=== PATIENT | female | born 1935 | race Caucasian/White ===

== ENCOUNTER 2020-06-19 12:35 | Inpatient (IN) | payer MEDICARE, BC, MEDICAID, SELFPAY ==
[2020-06-19] VITALS (25 sets, daily range): BP systolic 62–153; BP diastolic 34–80; PULSE 80–105; RESP 12–26; TEMP 36.6–37.6; O2SAT 88–100; BMI 26.6; BMI 19.1
--- NOTE | 2020-06-19 12:37 | HMH.EDGENADL ---
ED Disposition Clinical Impression: Altered mental status Qualifiers: Altered mental status type: disorientation Qualified Code(s): R41.0 - Disorientation, unspecified Urinary tract infection Qualifiers: Urinary tract infection type: acute cystitis Hematuria presence: without hematuria Qualified Code(s): N30.00 - Acute cystitis without hematuria Disposition: Admitted As Inpatient Condition on Discharge: Fair Time of Disposition: 16:22 - Critical Care Critical Care Time: No Attestation: On , the high probability of a clinically significant, sudden or life threatening deterioration of the following system(s) required my full and direct attention, intervention and personal management. The time I documented below is in addition to time spent performing reported procedures but includes the following listed in this critical care notation. Medical Decision Making - Medical Records Medical records reviewed: Yes: I reviewed the patient's medical records. MR Comment: 85-year-old female here with complaint that she was unresponsive; she has been brought here by EMS from an assisted living facility who themselves had gotten her only a few days ago and hence do not know many details about her; Apparently she had a good breakfast today but after the breakfast she became unresponsive but arousable on stimuli; facility sent her over for evaluation. Work-up shows normal white blood cell count of 7.9 electrolytes are also essentially normal she does however have a urinary tract infection UA shows 3+ leukocyte esterase 1+ bacteria and 20-30 WBCs call with test is negative CT head shows no acute changes vital signs are stable patient has been started on IV Levaquin she is also getting IV fluids spoke to Dr. Glasgow who is on-call for Dr. Trevino plan is to admit her to the hospital speak to [facility] and they tell me that that she has already been accepted by [facility] Inquiry Pt receiving controlled substance: No Vital Signs: 06/19/20 12:35 06/19/20 13:00 06/19/20 14:00 Temperature 97.9 F Temperature Source Oral Pulse Rate [Left Radial] 82 91 H 95 H Respiratory Rate 12 Blood Pressure [Right Arm] 116/56 L 125/65 85/60 L Blood Pressure Mean [Right Arm] 76 85 68 Blood Pressure Source [Right Arm] Automatic Cuff Automatic Cuff Automatic Cuff Blood Pressure Position [Right Arm] Sitting Sitting Sitting 02 Sat by Pulse Oximetry 100 90 L 100 Oxygen Delivery Method Nasal Cannula Nasal Cannula Nasal Cannula Oxygen Flow Rate (LPM) 2 2 06/19/20 14:08 06/19/20 14:30 06/19/20 15:00 Temperature Temperature Source Pulse Rate [Left Radial] 93 H 90 91 H Respiratory Rate 16 Blood Pressure [Right Arm] 85/60 L 88/45 L 95/59 L Blood Pressure Mean [Right Arm] 68 59 71 Blood Pressure Source [Right Arm] Automatic Cuff Automatic Cuff Automatic Cuff Blood Pressure Position [Right Arm] Sitting Sitting Sitting 02 Sat by Pulse Oximetry 98 88 L 90 L Oxygen Delivery Method Nasal Cannula Nasal Cannula Oxygen Flow Rate (LPM) 2 2 06/19/20 15:30 06/19/20 15:32 06/19/20 15:33 Temperature Temperature Source Pulse Rate [Left Radial] 99 H 99 H 96 H Respiratory Rate Blood Pressure [Right Arm] 71/45 L 62/41 L 80/50 L Blood Pressure Mean [Right Arm] 53 48 60 Blood Pressure Source [Right Arm] Automatic Cuff Automatic Cuff Manual Cuff/ Auscultation Blood Pressure Position [Right Arm] Sitting Sitting Sitting 02 Sat by Pulse Oximetry 92 L 88 L 90 L Oxygen Delivery Method Nasal Cannula Nasal Cannula Nasal Cannula Oxygen Flow Rate (LPM) 2 2 2 06/19/20 15:37 06/19/20 15:39 06/19/20 15:46 Temperature Temperature Source Pulse Rate [Left Radial] 89 90 87 Respiratory Rate Blood Pressure [Right Arm] 64/39 L 85/39 L 80/43 L Blood Pressure Mean [Right Arm] 47 54 55 Blood Pressure Source [Right Arm] Automatic Cuff Automatic Cuff Automatic Cuff Blood Pressure Position [Right Arm] Sitting Sitting Sitti
--- NOTE | 2020-06-19 12:44 | CT_ITS ---
PROCEDURE: CT HEAD/BRAIN WO CON Referring Doctor: Marek Mata Patient Age:85Y CLINICAL INDICATION: mental status changes poor historian. Patient not alert COMPARISON: No exams were available for comparison TECHNIQUE: No IV contrast. Standard axial images were obtained. All CT scans at the facility use one or more dose reduction, viz: automated exposure control, ma/kV adjustment per patient size (including targeted exams where dose is matched to indication, i.e. head), or iterative reconstruction technique. FINDINGS: No hemorrhage. No territorial infarct. There are low-density changes in the deep white matter reflecting chronic small vessel deep white-matter ischemic changes. Some of these are quite focal. However I believe these all do reflect small microangiopathic deep white matter ischemic gliotic changes. And by far most likely chronic, longstanding. No previous studies to confirm stability thus difficult to totally exclude recent deep white matter event but again favor chronic/longstanding features here Some of the more focal mature appearing low-density areas is seen at the centrum semiovale white matter tracks just superior to the right basal ganglia on axial image 27, (5 x 7 mm low-density areas seen here anteriorly) and another more posteriorly on axial image 28 of similar size At the left cerebral hemisphere there is a more diffuse subtle patchy appearance low-density pattern throughout the deep white matter, reflecting the chronic small vessel ischemic changes. Most notable lower density area for example just superior to the atrium of left lateral ventricle. (Axial image 27). Also very subtle low density at the inferior left basal ganglia likely reflects small vessel changes. No intracranial hemorrhage. There is mild diffuse cerebral atrophy with a matching mild prominence of lateral ventricles no otherwise the ventricles and basal cisterns appear clear and unremarkable.. No mass or midline shift nor mass effect. No subdural or extra-axial fluid collection is evident. Posterior fossa unremarkable. Skull intact-no skull lesions are findings of scalp appears normal with no evidence of trauma.. Nomastoid effusions. Mastoid air cells are well developed and clear. Middle ear clear. IAC's symmetric. Nosinus air-fluid level. Visualized portions of the paranasal sinuses and orbits unremarkable. IMPRESSION: 1..Patchy low-density deep white matter along with few focal areas of low-density in the deep white matter-. 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 (Although with this appearance difficult to totally exclude a recent small deep white matter event strongly favor these are by far most likely chronic old deep white matter changes.) However patient may benefit from a follow-up MRI the brain to better exclude the new event, particularly if persistent or new or progressive symptoms. 2..No discrete acute intracranial findings: No hemorrhage. No territorial infarct. No subdural or extra-axial collection Dictated by: Pawan Zamora MD 06/19/2020 13:54 Pawan Zamora MD in [place] 06/19/2020 13:54
--- NOTE | 2020-06-19 12:47 | XR_ITS ---
PROCEDURE: XR CHEST PORTABLE Referring Doctor: Adolfo Marek Patient Age:85Y CLINICAL HISTORY: shortness of breath Found unresponsive COMPARISON: No exams were available for comparison FINDINGS: AP portable semi-erect CXR but Right lung clear with mild chronic changes left chest . There are 2 portable chest studies suggest today per on the 1st I initially question additional density at left base retrocardiac region but this does not persist on the 2nd image..-It appears that unusually broad flaring of the left 4th anterior rib which and density project overlying the heart accounting for the appearance here.. And questionable density at the medial left base on 2nd chest film was not seen on the 1st but Thus after reviewing all images I see no definitive consolidation nor infiltrate at left nor right chest. . Left upper lung field clear. Annette and mediastinal structures otherwise unremarkable. . No pleural effusion but no pneumothorax. Chest wall and ribs unremarkable on this limited portable exam. Advanced arthritic changes right shoulder Mild cardiomegaly but normal pulmonary vascularity. Scattered calcified granulomas are at the lung andrews bilaterally. Prior kyphoplasty lower thoracic vertebra IMPRESSION: Nothing definitely acute. Note slightly unusual very broad flaring of the left 4th rib end, which I believe accounts for slight areas of variable density at projected over the over the heart and left lung base. No definitive pulmonary abnormalities here.. Dictated by: aPwan Zamora MD 06/19/2020 15:56 Pawan Zamora MD in [place] 06/19/2020 15:56
[2020-06-19 13:04] LABS: Microscopic, Urine URINE MICROSCOPIC (MICROSCOPIC)
[2020-06-19 13:07] LABS: Basophils # 0.1 K/mm3 (0-0.2); Basophils % 1.1 % (0.1-2.0); Eosinophils # 0.2 K/mm3 (0.0-0.4); Eosinophils % 3.1 % (0.1-12.0); Hematocrit 47.6 % (37.0-47.0); Hemoglobin 15.4 g/dL (12.2-16.2); Lymphocytes # 2.4 K/mm3 (0.7-4.5); Lymphocytes % 29.9 % (10-50); Mean Corpuscular HGB Conc 32.5 g/dL (31.8-35.4); Mean Corpuscular Hemoglobin 30.3 pg (27.0-31.2); Mean Corpuscular Volume 93.4 fl (81-99); Mean Platelet Volume 8.5 fl (7.4-10.4); Monocytes # 0.5 K/mm3 (0.1-1.0); Monocytes % 6.8 % (1.7-9.3); Neutrophils # 4.6 K/mm3 (1.8-7.8); Neutrophils % 59.1 % (37.0-80.0); Platelet Count 181 K/mm3 (142-424); Red Blood Count 5.09 M/mm3 (4.20-5.40); Red Cell Distribution Width 14.4 % (11.5-17.5); White Blood Count 7.9 K/mm3 (4.8-10.8)
[2020-06-19 13:08] LABS: Appearance,Urine CLEAR (Clear); Bilirubin,Urine Negative (Negative); Blood, Urine Negative (Negative); Color,Urine YELLOW (Yellow); Glucose,Urine (UA) Negative (Negative); Ketones,Urine Negative (Negative); Leukocyte Esterase,Urine 3+ (Negative); Nitrate,Urine Negative (Negative); PH,Urine 5.5 (5.0-8.5); Protein,Urine Negative (Negative); Specific Gravity, Urine 1.025 (1.005-1.030); Urobilinogen,Urine 0.2 EU/dl (0.2)
[2020-06-19 13:17] LABS: Chloride 103 mmol/L (98-107); Sodium 143 mmol/L (136-145)
[2020-06-19 13:18] LABS: Potassium 3.6 mmoL/L (3.5-5.1); WBC,Urine 20-50 #/hpf (0-3)
[2020-06-19 13:19] LABS: Bacteria,Urine 1+ /lpf
[2020-06-19 13:20] LABS: Alanine Aminotransferase 22 U/L (12-78); Albumin Level 4.6 g/dl (3.5-5.0); Albumin/Globulin Ratio 1.4 (1.1-1.8); Alkaline Phosphatase 83 U/L (38-126); Anion Gap 11.6 mEq/L (5-15); Aspartate Amino Transferase 28 U/L (14-36); Bilirubin,Total 0.5 mg/dl (0.2-1.3); Blood Urea Nitrogen 22 mg/dl (7-17); Calcium 10.4 mg/dl (8.4-10.2); Carbon Dioxide 32 mmol/L (22.0-30.0); Creatinine Clearance Estimated 48 mL/min (50-200); Estimated Glomerular Filt Rate 80 ml/min (>60); GFR (African American) 96 ML/MIN (>60); Globulin 3.4 g/dL (1.3-3.2); Glucose 136 mg/dl (74-100); Lactic Acid 1.4 mmol/L (0.7-2.1)
[2020-06-19 13:38] LABS: Troponin I < 0.01 ng/ml (0.00-0.034)
[2020-06-19 13:52] LABS: Thyroid Stimulating Hormone 3.69 uIU/mL (0.465-4.68)
[2020-06-19 14:39] LABS: ABG Base Excess -1.5 mmol/L (-2.4-2.3); ABG HCO3 24.1 mmhg (22.0-26.0); ABG Oxygen Saturation 97 % (90-100); ABG PCO2 44.6 mmhg (35.0-45.0); ABG PH 7.35 mmol/L (7.35-7.45); ABG PO2 93.8 mmhg (80-100); ABG TCO2 25.5 mmhg (23-27)
[2020-06-19 14:44] LABS: Coronavirus 19 IgG Antibody Negative (Negative); Coronavirus 19 IgM Antibody Negative (Negative)
[2020-06-19 14:49] LABS: Oxygen 3LPM %; Source L BRACHIAL
--- NOTE | 2020-06-19 15:00 | PC.NURSE ---
Pt given 1 L of NS bolus per MD Mata. Unable to document on MAR at this time.
--- NOTE | 2020-06-19 15:25 | PC.NURSE ---
House notified of admission
--- NOTE | 2020-06-19 15:33 | PC.NURSE ---
PT b/p decreased, Notified MD pt with guaureliano resp. MD at bedside. Attempting 2nd IV. Called [facility] for code status and they advised she was a full code. Resp notified to come to bedside and notified pharmacy need for levophed drip
--- NOTE | 2020-06-19 15:52 | PC.NURSE ---
Vitals showed that pt was decreasing with a reading of 70/40. MD, EMT and myself at bedside. REsiratory called for suctioning due to pt having excess secretions. Md ordered for pt to be started on levophed drip at this time due to the completion of pt bolus with no bp improvement.
--- NOTE | 2020-06-19 16:30 | PC.NURSE ---
Waiting on MD to finish orders and then pt will be taken to floor
--- NOTE | 2020-06-19 17:27 | PC.NURSE ---
pt arrived to the floor @ 1700. Levophed gtt decreased to 4mcg/min from 8mcg/min. SBP 153.
--- NOTE | 2020-06-19 17:52 | HMH.HP ---
*Admission Date: 06/19/20 *Chief complaint: sepsis *History of present illness: 85-year-old female here with complaint that she was unresponsive; she has been brought here by EMS from an assisted living facility who themselves had gotten her only a few days ago and hence do not know many details about her; Apparently she had a good breakfast today but after the breakfast she became unresponsive but arousable on stimuli; facility sent her over for evaluation. Work-up shows normal white blood cell count of 7.9 electrolytes are also essentially normal she does however have a urinary tract infection UA shows 3+ leukocyte esterase 1+ bacteria and 20-30 WBCs call with test is negative CT head shows no acute changes vital signs are stable patient has been started on IV Levaquin she is also getting IV fluids spoke to Dr. Glasgow who is on-call for Dr. Trevino plan is to admit her to the hospital speak to [facility] [place] and they tell me that that she has already been accepted by [facility]. The patient got fluid bolused in the emergency room. She is seen on the floor, is currently on a Levophed drip which is being down titrated. Remains unresponsive. Initial ABG looked okay. We are unable to get good pulse oximetry from any extremity. Currently on O2 at 50%. We will get an ABG and modify accordingly. Patient is a full code. She is unable to speak or answer questions. Review of her preadmission medications suggest some dementia with behavioral issues. [facility] History *Have you ever received a pneumonia vaccine?: No *Have you received a flu vaccine this season?: No - *Social History *Occupational Status:: previously employed *Travel in the last 8 weeks: None Family Hx:: Unable to obtain Review of Systems - Review of Systems Review of systems:: unable to obtain Meds Home Medications Medication Instructions Recorded Confirmed Type Aspirin 81 mg PO DAILY 06/19/20 06/19/20 History Atorvastatin Calcium [Lipitor 10mg 10 mg PO HS 06/19/20 06/19/20 History Tab] Buspirone HCl [Buspar 10mg 10 mg PO BID 06/19/20 06/19/20 History tablet] Cyproheptadine HCl 4 mg PO TID 06/19/20 06/19/20 History Donepezil HCl [Aricept 10mg 10 mg PO HS 06/19/20 06/19/20 History tablet] Duloxetine HCl 30 mg PO DAILY 06/19/20 06/19/20 History Fluticasone Propionate [Flonase 2 spr NS DAILY 06/19/20 06/19/20 History 50mcg nasal spray 16gm] Megestrol Acetate [Megace Es] 400 mg PO BID 06/19/20 06/19/20 History Meloxicam 7.5 mg PO DAILY 06/19/20 06/19/20 History Memantine HCl [Memantine 10mg 10 mg PO BID 06/19/20 06/19/20 History Tablet] Mirtazapine 7.5 mg PO HS 06/19/20 06/19/20 History Multivitamin [Multivitamins] 1 each PO DAILY 06/19/20 06/19/20 History Quetiapine Fumarate 50 mg PO AC 06/19/20 06/19/20 History Quetiapine Fumarate 50 mg PO DAILY 06/19/20 06/19/20 History Quetiapine Fumarate 125 mg PO HS 06/19/20 06/19/20 History lisinopriL [Lisinopril 2.5mg Tab] 2.5 mg PO DAILY 06/19/20 06/19/20 History Allergies Allergy/AdvReac Type Severity Reaction Status Date / Time codeine Allergy Verified 06/19/20 16:05 oxycodone Allergy Verified 06/19/20 16:05 Exam Vital signs and Labs for Last 24 Hours: Temp Pulse Resp BP Pulse Ox 98.3 F 94 H 26 H 153/80 H 93 L 06/19/20 17:29 06/19/20 17:29 06/19/20 17:29 06/19/20 17:29 06/19/20 17:29 Laboratory Results - last 24 hr 06/19/20 12:44: Specimen Source L brachial, O2 % 3lpm, ABG pH 7.35, ABG pCO2 44.6, ABG pO2 93.8, ABG HCO3 24.1, ABG Total CO2 25.5, ABG O2 Saturation 97, ABG Base Excess -1.5 06/19/20 12:51: Urine Color Yellow, Urine Appearance Clear, Urine pH 5.5, Ur Specific [place] 1.025, Urine Protein Negative, Urine Glucose (UA) Negative, Urine Ketones Negative, Urine Blood Negative, Urine Nitrate Negative, Urine Bilirubin Negative, Urine Urobilinogen 0.2, Ur Leukocyte Esterase 3+ A, Urine RBC 3-5, Urine WBC 20-50, Ur Squamous Epith Cells 3-
--- NOTE | 2020-06-19 17:54 | PC.NURSE ---
RT. NT suctioned Pt. in ER and sent SPT to lab at 1700
--- NOTE | 2020-06-19 18:04 | PC.NURSE ---
Levophed increased to 8mcg/min secondary to BP 76/48.
[2020-06-20] VITALS (19 sets, daily range): BP systolic 84–135; BP diastolic 42–70; PULSE 70–100; RESP 16–24; TEMP 36.9–37.3; O2SAT 90–100; BMI 20.5
--- NOTE | 2020-06-20 01:10 | PC.NURSE ---
O2 weaned to 30 venti. Continues to sat 100%. She is unable to take any PO meds. She does not follow commands. Provided oral care and turned and repositioned q 2 hours. She withdraws to pain. She occasionally clears her throat. Her mouth is dry and she is mouth breathing. No speech but occasional moans. Safety set on bed. Levophed titrated to maintain SBP >90.
[2020-06-20 06:00] LABS: Basophils # 0.1 K/mm3 (0-0.2); Basophils % 0.3 % (0.1-2.0); Eosinophils # 0.1 K/mm3 (0.0-0.4); Hematocrit 43.9 % (37.0-47.0); Hemoglobin 14.4 g/dL (12.2-16.2); Lymphocytes # 1.3 K/mm3 (0.7-4.5); Lymphocytes % 9.8 % (10-50); Mean Corpuscular HGB Conc 32.8 g/dL (31.8-35.4); Mean Corpuscular Volume 91.6 fl (81-99); Mean Platelet Volume 8.3 fl (7.4-10.4); Monocytes # 0.7 K/mm3 (0.1-1.0); Monocytes % 4.9 % (1.7-9.3); Neutrophils # 11.1 K/mm3 (1.8-7.8); Platelet Count 165 K/mm3 (142-424); Red Blood Count 4.79 M/mm3 (4.20-5.40); Red Cell Distribution Width 14.5 % (11.5-17.5); White Blood Count 13.2 K/mm3 (4.8-10.8)
--- NOTE | 2020-06-20 06:00 | XR_ITS ---
PROCEDURE: XR CHEST PORTABLE CLINICAL HISTORY: hypoxia COMPARISON: CR XR CHEST PORTABLE from 06/19/2020 FINDINGS: This is a somewhat poor inspiration. If there are few calcified granulomata in the right lung but I see no definite infiltrate. Cardiac size is borderline, there is questionable increased density through the left heart border and a minimal left basilar infiltrate cannot be entirely excluded. A probably be helpful to obtain a PA and lateral chest if the patient is able to assume the position. The vertebroplasties again seen involving T8. Marked degenerate change of the right shoulder is noted with of markedly high-riding humeral head and subacromial stenosis. IMPRESSION: No definite pneumonic infiltrate identified though as mentioned there is a increased density seen through the left heart border which could be due to atelectasis or possibly an early pneumonic infiltrate. Dictated by: Dr. Jg Danielle MD 06/20/2020 08:35 Dr. Jg Danielle MD in [place] 06/20/2020 08:35
[2020-06-20 06:05] LABS: Chloride 107 mmol/L (98-107); Potassium 4.5 mmoL/L (3.5-5.1); Sodium 137 mmol/L (136-145)
[2020-06-20 06:07] LABS: Lactic Acid 1.9 mmol/L (0.7-2.1)
[2020-06-20 06:08] LABS: Alanine Aminotransferase 19 U/L (12-78); Albumin Level 3.7 g/dl (3.5-5.0); Albumin/Globulin Ratio 1.3 (1.1-1.8); Alkaline Phosphatase 66 U/L (38-126); Anion Gap 10.5 mEq/L (5-15); Aspartate Amino Transferase 22 U/L (14-36); Bilirubin,Total 0.8 mg/dl (0.2-1.3); Blood Urea Nitrogen 19 mg/dl (7-17); Calcium 9.4 mg/dl (8.4-10.2); Carbon Dioxide 24 mmol/L (22.0-30.0); Creatinine Clearance Estimated 35 mL/min (50-200); Estimated Glomerular Filt Rate 80 ml/min (>60); GFR (African American) 96 ML/MIN (>60); Globulin 2.8 g/dL (1.3-3.2); Glucose 141 mg/dl (74-100); Total Protein,Serum 6.5 g/dl (6.3-8.2)
[2020-06-20 07:25] LABS: ABG HCO3 19.1 mmhg (22.0-26.0); ABG PCO2 35.4 mmhg (35.0-45.0); ABG PH 7.35 mmol/L (7.35-7.45); ABG PO2 74.8 mmhg (80-100); ABG TCO2 20.2 mmhg (23-27)
[2020-06-20 07:26] LABS: ABG Base Excess -6.5 mmol/L (-2.4-2.3); ABG Oxygen Saturation 95 % (90-100)
--- NOTE | 2020-06-20 11:21 | P.CONPHA_ITS ---
[facility] Pharmacy VTE Monitoring - Patient Demographics Admission date: 06/20/20 Report Date: 06/20/20 Time: 11:22 Allergies/Adverse Reactions: Patient Allergies codeine Allergy (Verified 06/19/20 16:05) oxycodone Allergy (Verified 06/19/20 16:05) Height: 1.65 m Weight: 55.747 kg Patient Problems: Current Active Problems Altered mental status (Acute) Urinary tract infection (Acute) Sepsis associated hypotension (Acute) Dementia (Chronic) - VTE Risk Labs: VTE Related Lab Results Hgb 14.4 g/dL (12.2-16.2) 06/20/20 05:48 Hct 43.9 % (37.0-47.0) 06/20/20 05:48 Plt Count 165 K/mm3 (142-424) 06/20/20 05:48 BUN 19 mg/dl (7-17) H 06/20/20 05:48 Creatinine 0.70 mg/dl (0.52-1.04) 06/20/20 05:48 Estimated Creat Clear 35 mL/min (50-200) 06/20/20 05:48 Was VTE Risk Assessment Performed: Yes VTE Score: 2 VTE Risk Level: Very Low Risk - Prophylaxis Types of VTE Prophylaxis: Pharmacological Location of Applied Device: Bilateral Lower Extremeties Pharmacologic Type: Enoxaparin (LOVENOX ORDERED)
--- NOTE | 2020-06-20 11:22 | HMH.PHAINT ---
MED REC-CALLED AND HAD MED LIST FAXED FROM [facility]. COMPARED LIST IN SYSTEM WITH PATIENT MAR.
--- NOTE | 2020-06-20 15:40 | DIET.NUTRFU ---
Confirmed with Gallo that pt is on regular diet with regular consistency at [facility]. Pt at risk malnutrition rt dementia, BMI on low range of healthy weight. Pt NPO rt mentation, will provide supplementation as indicated upon diet advancement.
--- NOTE | 2020-06-20 16:35 | HMH.ACPN2 ---
Internal Medicine - PN: Subj *Date: 06/20/20 *Time: 16:37 Interval history: No problems overnight. She actually looks quite good this morning, she is alert and conversant. Suspect she has some underlying dementia. She has no complaints of abdominal pain, chest pain or dyspnea. Urine culture preliminary is growing out gram-negative rods. Exam Vital signs and Labs for Last 24 Hours: Temp Pulse Resp BP Pulse Ox 98.4 F 71 18 120/60 99 06/20/20 08:00 06/20/20 14:00 06/20/20 14:00 06/20/20 14:00 06/20/20 14:00 Laboratory Results - last 24 hr 06/19/20 12:51: Urine Color Yellow, Urine Appearance Clear, Urine pH 5.5, Ur Specific [place] 1.025, Urine Protein Negative, Urine Glucose (UA) Negative, Urine Ketones Negative, Urine Blood Negative, Urine Nitrate Negative, Urine Bilirubin Negative, Urine Urobilinogen 0.2, Ur Leukocyte Esterase 3+ A, Urine RBC 3-5, Urine WBC 20-50, Ur Squamous Epith Cells 3-5, Urine Bacteria 1+ 06/19/20 17:49: O2 % venti mask, ABG pH 7.35, ABG pCO2 35.4, ABG pO2 74.8 L, ABG HCO3 19.1 L, ABG Total CO2 20.2 L, ABG O2 Saturation 95, ABG Base Excess -6.5 L 06/20/20 05:48: WBC 13.2 H D, RBC 4.79, Hgb 14.4, Hct 43.9, MCV 91.6, MCH 30.0, MCHC 32.8, RDW 14.5, Plt Count 165, MPV 8.3, Neut % (Auto) 84.0 H, Lymph % (Auto) 9.8 L, Mcnairy % (Auto) 4.9, Eos % (Auto) 1.0, Baso % (Auto) 0.3, Neut # (Auto) 11.1 H, Lymph # (Auto) 1.3, Mcn[place] # (Auto) 0.7, Eos # (Auto) 0.1, Baso # (Auto) 0.1 06/20/20 05:48: Sodium 137, Potassium 4.5 D, Chloride 107, Carbon Dioxide 24 D, Anion Gap 10.5, BUN 19 H, Creatinine 0.70, Estimated Creat Clear 35, Estimated GFR 80, Est GFR ( Amer) 96, Glucose 141 H, Calcium 9.4, Total Bilirubin 0.8, AST 22, ALT 19, Alkaline Phosphatase 66, Total Protein 6.5, Albumin 3.7 D, Globulin 2.8, Albumin/Globulin Ratio 1.3 06/20/20 05:48: Lactate 1.9 I & O for Last 24 hours: Intake & Output 06/17/20 06/18/20 06/19/20 06/20/20 23:59 23:59 23:59 23:59 Intake Total 1224 / 1224 1629.64 / 1629.64 Output Total 200 / 200 Balance 1224 / 1024 1429.64 / 1429.64 Weight 115 lb 3 oz 123 lb 7.342 oz Microbiology Reports for the Last 24 Hours: Microbiology 06/19/20 17:45 Sputum - Expectorated Sputum Gram Stain - Final 06/19/20 17:45 Sputum - Expectorated Sputum Sputum Culture - Preliminary 06/19/20 12:51 Urine,Catheterized Urine Culture - Preliminary Gram Negative Rods - Constitutional no acute distress, chronically ill appearing - *Routine HEENT Exam Head: Present: normocephalic Eye: Present: EOMI, PERRL ENT: Present: mucous membranes moist - *Routine Neck Exam Present: supple. Absent: lymphadenopathy - *Routine Respiratory Exam Present: CTA bilaterally - *Routine Cardiovascular Exam Present: RRR - *Routine Abdominal Exam Present: soft, normoactive bowel sounds. Absent: tenderness - *Routine Extremities Exam Absent: cyanosis, clubbing, edema - *Routine Skin Exam Present: warm. Absent: rash - *Routine Neurological Exam Present: alert, moving all extremities, vision grossly intact, hearing grossly intact. Absent: oriented X3, altered mental status, facial asymmetry Assessment and Plan (1) Sepsis associated hypotension Status: Acute Category: Medical Code(s): A41.9 - Sepsis, unspecified organism; I95.9 - Hypotension, unspecified (2) Dementia Status: Chronic Category: Medical Code(s): F03.90 - Unspecified dementia without behavioral disturbance (3) Altered mental status Status: Acute Qualifiers: Altered mental status type: disorientation Qualified Code(s): R41.0 - Disorientation, unspecified Category: Medical Code(s): R41.82 - Altered mental status, unspecified (4) Urinary tract infection Status: Acute Qualifiers: Urinary tract infection type: acute cystitis Hematuria presence: without hematuria Qualified Code(s): N30.00 - Acute cystitis without hematuria Category: Medical
--- NOTE | 2020-06-20 18:37 | PC.NURSE ---
On morning assessment pt was not responding to commands but would withdraw from pain. Morning meds were held due to this. By afternoon the was alert to self and able to follow commands. Speech is unclear and rambling. Morning meds were given at that time under the direction of Jimmie Velasquez from pharmacy. She swallowed pills whole and a few at at time. Levophed was weaned to 3mcg/min. I attempted to turn it off but systolic fell below 90 and map was less than 65 so levophed was resumed. O2 was weaned to RA this AM. Pt tolerated well with O2 sats maintaining > 95%. Carmona is to bedside draining clear yellow urine. She has had approx 1200 mls out this shift. No other concerns at this time. Will continue to monitor.
--- NOTE | 2020-06-20 19:47 | PC.NURSE ---
She is alert to person. Some of her speech is clear but she rambles. She stated her name is Trini and when her accent was noted she stated she was from [place] and that she had moved to the [facility] from [place] with her and 2 daughters. Lung sounds CTA. F/c is patent with yellow, clear urine. She continues on levophed gtt. SCDS removed at this time and will be replaced after bath.
[2020-06-21] VITALS (10 sets, daily range): BP systolic 90–152; BP diastolic 54–90; PULSE 64–100; RESP 18–20; TEMP 36.4–37.3; O2SAT 95–99; BMI 19.5
[2020-06-21 06:19] LABS: Basophils % 0.3 % (0.1-2.0); Eosinophils # 0.4 K/mm3 (0.0-0.4); Eosinophils % 4.2 % (0.1-12.0); Hematocrit 38.7 % (37.0-47.0); Hemoglobin 12.7 g/dL (12.2-16.2); Lymphocytes # 1.4 K/mm3 (0.7-4.5); Lymphocytes % 14.3 % (10-50); Mean Corpuscular HGB Conc 32.7 g/dL (31.8-35.4); Mean Corpuscular Hemoglobin 30.4 pg (27.0-31.2); Mean Platelet Volume 8.3 fl (7.4-10.4); Monocytes # 0.5 K/mm3 (0.1-1.0); Neutrophils # 7.1 K/mm3 (1.8-7.8); Neutrophils % 76.1 % (37.0-80.0); Platelet Count 130 K/mm3 (142-424); Red Blood Count 4.17 M/mm3 (4.20-5.40); Red Cell Distribution Width 14.6 % (11.5-17.5); White Blood Count 9.4 K/mm3 (4.8-10.8)
[2020-06-21 06:54] LABS: Alanine Aminotransferase 13 U/L (12-78); Albumin Level 3.1 g/dl (3.5-5.0); Albumin/Globulin Ratio 1.2 (1.1-1.8); Alkaline Phosphatase 65 U/L (38-126); Anion Gap 11.6 mEq/L (5-15); Aspartate Amino Transferase 24 U/L (14-36); Bilirubin,Total 0.5 mg/dl (0.2-1.3); Blood Urea Nitrogen 11 mg/dl (7-17); Carbon Dioxide 24 mmol/L (22.0-30.0); Chloride 109 mmol/L (98-107); Creatinine Clearance Estimated 35 mL/min (50-200); Estimated Glomerular Filt Rate 118 ml/min (>60); GFR (African American) 142 ML/MIN (>60); Globulin 2.5 g/dL (1.3-3.2); Glucose 93 mg/dl (74-100); Potassium 3.6 mmoL/L (3.5-5.1); Sodium 141 mmol/L (136-145); Total Protein,Serum 5.6 g/dl (6.3-8.2)
--- NOTE | 2020-06-21 13:25 | HMH.DCSUM ---
General - General Admission date:: 06/19/20 HPI HPI: 85-year-old female here with complaint that she was unresponsive; she has been brought here by EMS from an assisted living facility who themselves had gotten her only a few days ago and hence do not know many details about her; Apparently she had a good breakfast today but after the breakfast she became unresponsive but arousable on stimuli; facility sent her over for evaluation. Work-up shows normal white blood cell count of 7.9 electrolytes are also essentially normal she does however have a urinary tract infection UA shows 3+ leukocyte esterase 1+ bacteria and 20-30 WBCs call with test is negative CT head shows no acute changes vital signs are stable patient has been started on IV Levaquin she is also getting IV fluids spoke to Dr. Glasgow who is on-call for Dr. Trevino plan is to admit her to the hospital speak to [facility] and they tell me that that she has already been accepted by [facility]. The patient got fluid bolused in the emergency room. She is seen on the floor, is currently on a Levophed drip which is being down titrated. Remains unresponsive. Initial ABG looked okay. We are unable to get good pulse oximetry from any extremity. Currently on O2 at 50%. We will get an ABG and modify accordingly. Patient is a full code. She is unable to speak or answer questions. Review of her preadmission medications suggest some dementia with behavioral issues. Hospital Course Hospital Course: Patient was admitted with a UTI, urosepsis, mental status changes. She was started on IV antibiotics and clinically made a dramatic improvement. Mentation returned to a baseline dementia status. This morning she is awake and alert, is eating, feeding herself and looks very bright. The underlying dementia still manifest though. The E. coli growing from the bloodstream is pansensitive. Chest imaging does not reveal an acute pneumonia. She is a resident at [facility], given her excellent clinical response we will discharge her today. Objective Vital signs: Temp Pulse Resp BP Pulse Ox 97.6 F 88 20 129/90 97 06/21/20 08:00 06/21/20 10:00 06/21/20 10:00 06/21/20 10:00 06/21/20 10:00 no acute distress, thin, chronically ill appearing - *Routine HEENT Exam Head: Present: normocephalic Eye: Present: EOMI, PERRL ENT: Present: mucous membranes moist - *Routine Neck Exam Present: supple - *Routine Respiratory Exam Present: CTA bilaterally - *Routine Cardiovascular Exam Present: RRR - *Routine Abdominal Exam Present: soft, normoactive bowel sounds. Absent: tenderness - *Routine Extremities Exam Present: pulses intact. Absent: cyanosis, clubbing, edema, tenderness, joint swelling - *Routine Skin Exam Present: warm. Absent: rash Results Labs on day of discharge: Labs from last 24 hours 06/21/20 06/21/20 06:10 06:10 WBC 9.4 D RBC 4.17 L Hgb 12.7 Hct 38.7 MCV 93.0 MCH 30.4 MCHC 32.7 RDW 14.6 Plt Count 130 L MPV 8.3 Neut % (Auto) 76.1 Lymph % (Auto) 14.3 [place] % (Auto) 5.0 Eos % (Auto) 4.2 Baso % (Auto) 0.3 Neut # (Auto) 7.1 Lymph # (Auto) 1.4 [place] # (Auto) 0.5 Eos # (Auto) 0.4 Baso # (Auto) 0.0 Sodium 141 Potassium 3.6 Chloride 109 H Carbon Dioxide 24 Anion Gap 11.6 BUN 11 D Creatinine 0.50 L D Estimated Creat Clear 35 Estimated GFR 118 Est GFR ( Amer) 142 D Glucose 93 Calcium 9.0 Total Bilirubin 0.5 AST 24 ALT 13 D Alkaline Phosphatase 65 Total Protein 5.6 L Albumin 3.1 L D Globulin 2.5 Albumin/Globulin Ratio 1.2 Preliminary micro results at discharge 06/19/20 12:51 Blood Culture - Preliminary Blood NO GROWTH AFTER 48 HOURS 06/19/20 17:45 Sputum Culture - Preliminary Sputum - Expectorated Sputum DS: Diagnosis - Discharge Diagnosis (1) Sepsis associated hypot
--- NOTE | 2020-06-21 13:39 | PC.NURSE ---
santillan discontinued and purwick placed.
--- NOTE | 2020-06-21 14:09 | PC.NURSE ---
spoke with md about patient discharge, along with case management. patient will need pt before discharge, and according to [facility] patient was going to [facility] on tuesday, so they would not approve her to come back to them,
--- NOTE | 2020-06-21 16:26 | PC.NURSE ---
did alert md that since being asleep patient has been running trigeminy on the monitor/frequent pvcs.
--- NOTE | 2020-06-21 17:12 | PC.NURSE ---
patient has done well this shift. alert to name only. md is aware patient cannot discharge today, but left discharge order in. will need to follow up with case management on discharge planning. she is finally resting. has been confused, and talking to self most of shift. fed self and tolerated it well. mostly normal sinus on monitor. brief period of multiple pvcs that md is aware of. sats have been stable on room air. bp has been within normal limits. no complaints.
[2020-06-22] VITALS: BP 145/76; PULSE 80; RESP 18; TEMP 36.6; O2SAT 95
[2020-06-22 04:00] VITALS: BP 159/87; PULSE 70; PULSE 74; RESP 18; TEMP 36.3; O2SAT 95
[2020-06-22 04:38] VITALS: BMI 19.8
--- NOTE | 2020-06-22 05:12 | PC.NURSE ---
No acute changes. Pt is alert to self. has rested well this shift. Has remained on RA. VS have remained stable. Medications administered per aug. Pt has been incontinent of urine this shift. Purwick is in place. No concerns noted at this time. Will continue to monitor.
[2020-06-22 08:00] VITALS: BP 142/70; PULSE 61; RESP 19; TEMP 37.1; O2SAT 95
[2020-06-22 10:42] LABS: Basophils % 0.4 % (0.1-2.0); Eosinophils # 0.2 K/mm3 (0.0-0.4); Eosinophils % 2.9 % (0.1-12.0); Hematocrit 38.1 % (37.0-47.0); Hemoglobin 12.7 g/dL (12.2-16.2); Lymphocytes # 1.5 K/mm3 (0.7-4.5); Lymphocytes % 18.8 % (10-50); Mean Corpuscular HGB Conc 33.4 g/dL (31.8-35.4); Mean Corpuscular Hemoglobin 30.5 pg (27.0-31.2); Mean Corpuscular Volume 91.3 fl (81-99); Mean Platelet Volume 8.5 fl (7.4-10.4); Monocytes # 0.4 K/mm3 (0.1-1.0); Monocytes % 5.1 % (1.7-9.3); Neutrophils # 5.8 K/mm3 (1.8-7.8); Neutrophils % 72.7 % (37.0-80.0); Platelet Count 145 K/mm3 (142-424); Red Blood Count 4.18 M/mm3 (4.20-5.40); Red Cell Distribution Width 14.6 % (11.5-17.5)
[2020-06-22 11:37] VITALS: BP 112/52; PULSE 65; RESP 18; TEMP 36.8; O2SAT 95
--- NOTE | 2020-06-22 11:53 | PC.NURSE ---
per dr vegas it was okay to dc director personal.
--- NOTE | 2020-06-22 14:25 | XR_ITS ---
PROCEDURE: XR CHEST PORTABLE CLINICAL HISTORY: rhonchi left COMPARISON: CR XR CHEST PORTABLE from 06/19/2020 CR XR CHEST PORTABLE from 06/20/2020 FINDINGS: The cardiomediastinal silhouette and pulmonary vascularity are within normal limits. Increased density in left mid mid and lower lung zone with silhouetting out of the hemidiaphragm consistent with pneumonia and/or atelectatic change. There is evidence of old granulomatous disease. Prior kyphoplasty of T8. IMPRESSION: Left lower lobe pneumonia Dictated by: Gustavo Matthews MD 06/23/2020 05:15 Gustavo Matthews MD in [facility] 06/23/2020 05:15
--- NOTE | 2020-06-22 14:25 | HMH.ACPN2 ---
Internal Medicine - PN: Subj *Date: 06/22/20 *Time: 14:29 Interval history: no interval problems noted placement plans will be finalized tomorrow off pressors baseline dementia Exam Vital signs and Labs for Last 24 Hours: Temp Pulse Resp BP Pulse Ox 98.3 F 65 18 112/52 L 95 06/22/20 11:37 06/22/20 11:37 06/22/20 11:37 06/22/20 11:37 06/22/20 11:37 Laboratory Results - last 24 hr 06/22/20 10:30: WBC 8.0, RBC 4.18 L, Hgb 12.7, Hct 38.1, MCV 91.3, MCH 30.5, MCHC 33.4, RDW 14.6, Plt Count 145, MPV 8.5, Neut % (Auto) 72.7, Lymph % (Auto) 18.8, [place] % (Auto) 5.1, Eos % (Auto) 2.9, Baso % (Auto) 0.4, Neut # (Auto) 5.8, Lymph # (Auto) 1.5, [place] # (Auto) 0.4, Eos # (Auto) 0.2, Baso # (Auto) 0.0 I & O for Last 24 hours: Intake & Output 06/19/20 06/20/20 06/21/20 06/22/20 23:59 23:59 23:59 23:59 Intake Total 1224 / 1224 2961.64 / 2961.64 2150 / 2150 600 / 600 Output Total 1900 / 1900 1750 / 1850 100 / 100 Balance 1224 / 1024 1061.64 / 1061.64 400 / 300 500 / 500 Weight 115 lb 3 oz 123 lb 7.342 oz 117 lb 1 oz 119 lb 1 oz Microbiology Reports for the Last 24 Hours: Microbiology 06/19/20 17:45 Sputum - Expectorated Sputum Gram Stain - Final 06/19/20 17:45 Sputum - Expectorated Sputum Sputum Culture - Preliminary 06/19/20 15:14 Blood Blood Culture - Preliminary NO GROWTH AFTER 48 HOURS 06/19/20 12:51 Blood Blood Culture - Preliminary NO GROWTH AFTER 48 HOURS - Constitutional no acute distress, chronically ill appearing - *Routine HEENT Exam Head: Present: normocephalic Eye: Present: EOMI, PERRL ENT: Present: mucous membranes moist - *Routine Neck Exam Present: supple. Absent: lymphadenopathy - *Routine Respiratory Exam Present: rhonchi. Absent: accessory muscle use, wheezes, crackles, diminished air movement - *Routine Cardiovascular Exam Present: RRR - *Routine Abdominal Exam Present: soft, normoactive bowel sounds. Absent: tenderness - *Routine Extremities Exam Present: MIMA stockings. Absent: cyanosis, clubbing, edema - *Routine Skin Exam Present: warm. Absent: rash - *Routine Neurological Exam Present: alert, altered mental status, vision grossly intact, hearing grossly intact. Absent: oriented X3, facial asymmetry Assessment and Plan (1) Sepsis associated hypotension Status: Acute Category: Medical Code(s): A41.9 - Sepsis, unspecified organism; I95.9 - Hypotension, unspecified (2) Dementia Status: Chronic Category: Medical Code(s): F03.90 - Unspecified dementia without behavioral disturbance (3) Altered mental status Status: Acute Qualifiers: Altered mental status type: disorientation Qualified Code(s): R41.0 - Disorientation, unspecified Category: Medical Code(s): R41.82 - Altered mental status, unspecified (4) Urinary tract infection Status: Acute Qualifiers: Urinary tract infection type: acute cystitis Hematuria presence: without hematuria Qualified Code(s): N30.00 - Acute cystitis without hematuria Category: Medical Code(s): N39.0 - Urinary tract infection, site not specified (5) E-coli UTI Status: Acute Category: Medical Code(s): N39.0 - Urinary tract infection, site not specified; B96.20 - Unspecified Escherichia coli [E. coli] as the cause of diseases classified elsewhere - Assessment and plan all Dx Assessment and Plan for all problems:: BC- Sputum- UC=pansensitive ecoli on levaquin will transition to po upon d/c definitive placement tomorrow
[2020-06-22 15:12] VITALS: BP 115/70; PULSE 82; RESP 18; TEMP 36.5; O2SAT 95
--- NOTE | 2020-06-22 18:17 | PC.NURSE ---
Routine assessment completed. Pt. oriented to self only. Lungs CTA in Bilateral upper lobes, Diminished in the lowers. Heart at RR. BS present x4 quad. No edema noted. IV remains intact. Pt. has attempted to get out of bed once since 3pm. Pt. denies needs, will continue to monitor.
[2020-06-22 20:00] VITALS: BP 109/56; PULSE 79; RESP 18; TEMP 36.8; O2SAT 91
[2020-06-23] VITALS (7 sets, daily range): BP systolic 123–168; BP diastolic 60–82; PULSE 65–101; RESP 16–20; TEMP 36.4–37.1; O2SAT 94–100; BMI 20.7
--- NOTE | 2020-06-23 04:18 | PC.NURSE ---
PT HAS RESTED WELL THIS SHIFT, VITAL SIGNS STABLE. PT ORIENTED TO SELF ONLY. PT HAS NOT ATTEMPTED TO CLIMB OUT OF BED, PLEASANT AND COOPERATIVE WITH CARE. LUNGS DIMINISHED, SCATTERED RHONCHI. IV PATENT. NO NEEDS VOICED. FREQUENT CHECKS PER STAFF. WILL CONTINUE TO MONITOR
--- NOTE | 2020-06-23 07:24 | PC.NURSE ---
report given to may casas rn
--- NOTE | 2020-06-23 10:36 | HMH.ACPN2 ---
Internal Medicine - PN: Subj *Date: 06/23/20 *Time: 08:00 Interval history: pt will dc to [facility] today for ltc placement Exam Vital signs and Labs for Last 24 Hours: Temp Pulse Resp BP Pulse Ox 97.6 F 67 16 168/82 H 96 06/23/20 07:26 06/23/20 07:26 06/23/20 07:26 06/23/20 07:26 06/23/20 07:26 Laboratory Results - last 24 hr 06/22/20 10:30: WBC 8.0, RBC 4.18 L, Hgb 12.7, Hct 38.1, MCV 91.3, MCH 30.5, MCHC 33.4, RDW 14.6, Plt Count 145, MPV 8.5, Neut % (Auto) 72.7, Lymph % (Auto) 18.8, [place] % (Auto) 5.1, Eos % (Auto) 2.9, Baso % (Auto) 0.4, Neut # (Auto) 5.8, Lymph # (Auto) 1.5, [place] # (Auto) 0.4, Eos # (Auto) 0.2, Baso # (Auto) 0.0 I & O for Last 24 hours: Intake & Output 06/20/20 06/21/20 06/22/20 06/23/20 11:59 11:59 11:59 11:59 Intake Total 3900.64 / 3900.64 1341 / 1341 1334 / 1334 720 / 720 Output Total 1400 / 1400 1800 / 1800 550 / 550 350 / 350 Balance 2500.64 / 2500.64 -459 / -459 784 / 784 370 / 370 Weight 122 lb 14.4 oz 117 lb 1 oz 119 lb 1 oz 124 lb 7 oz Microbiology Reports for the Last 24 Hours: Microbiology 06/19/20 17:45 Sputum - Expectorated Sputum Gram Stain - Final 06/19/20 17:45 Sputum - Expectorated Sputum Sputum Culture - Final Normal Respiratory Adrienne - Constitutional no acute distress, thin - *Routine HEENT Exam Head: Present: normocephalic Eye: Present: PERRL ENT: Present: mucous membranes moist - *Routine Neck Exam Present: supple. Absent: lymphadenopathy - *Routine Respiratory Exam Present: CTA bilaterally - *Routine Cardiovascular Exam Present: RRR - *Routine Abdominal Exam Present: soft, normoactive bowel sounds. Absent: tenderness - *Routine Extremities Exam Absent: cyanosis, clubbing, edema - *Routine Skin Exam Present: warm. Absent: rash - *Routine Neurological Exam Present: alert - Routine Psychiatric Exam Present: normal affect Assessment and Plan (1) Sepsis associated hypotension Status: Acute Category: Medical Code(s): A41.9 - Sepsis, unspecified organism; I95.9 - Hypotension, unspecified (2) Dementia Status: Chronic Category: Medical Code(s): F03.90 - Unspecified dementia without behavioral disturbance (3) Altered mental status Status: Acute Qualifiers: Altered mental status type: disorientation Qualified Code(s): R41.0 - Disorientation, unspecified Category: Medical Code(s): R41.82 - Altered mental status, unspecified (4) Urinary tract infection Status: Acute Qualifiers: Urinary tract infection type: acute cystitis Hematuria presence: without hematuria Qualified Code(s): N30.00 - Acute cystitis without hematuria Category: Medical Code(s): N39.0 - Urinary tract infection, site not specified (5) E-coli UTI Status: Acute Category: Medical Code(s): N39.0 - Urinary tract infection, site not specified; B96.20 - Unspecified Escherichia coli [E. coli] as the cause of diseases classified elsewhere - Assessment and plan all Dx Assessment and Plan for all problems:: rounded with dr tompkins all orders per dr leda diaz to zofia on levaquin already sent to pharm
--- NOTE | 2020-06-23 11:15 | SW/DCPLANNER ---
Addendum entered by Rocio Lebron 06/23/20 15:18: Patient is negative and will discharge to [facility] today. Original Note: This patient was admitted from [facility] but will need a higher level of care at time of discharge. Prior to admission [facility] staff was working with [facility] for admission to their facility. I have spoke with Marcia from [facility] today and she has stated that she has spoke with [facility] and they can admit this patient today. Marcia has also completed PASSR paperwork. COVID swab has been ordered for this patient and patient will discharge later today is negative. I have informed Dr Trevino/Leigh.
--- NOTE | 2020-06-23 14:50 | PC.NURSE ---
Sleeping soundly. Awaken to take medication with applesauce. Then back to sleep.
--- NOTE | 2020-06-23 18:19 | PC.NURSE ---
REPORT CALLED TO [facility] (LEV LOGAN RN)
--- NOTE | 2020-06-23 18:20 | PC.NURSE ---
BOTH IV'S TAKEN OUT (RT/AC AND LT EJ) CATHETERS INTACT, 2X2 GAUZE AND COBAN / TAPE APPLIED TO SITES. TOLERATED WELL.
--- NOTE | 2020-06-23 18:45 | PC.NURSE ---
[facility] CALLED AND NOTIFIED OF NEED FOR TRANSFER. VERBALIZES UNDERSTANDING.
--- NOTE | 2020-06-23 19:09 | PC.NURSE ---
EMS HERE TO HOUSE REPAIRER PT FOR TRNASPORT...
== END 2020-06-23 19:12 | DRG 872 ==
LOC: ER 13:24 → 2ND 15:44
PROVIDERS: Admitting Provider Internal Medicine Adolescent Medicine; Emergency Provider Emergency Medicine; PCP Emergency Medicine; Visit Provider Family Medicine
DX: A41.9 Sepsis, unspecified organism (principal); N30.00 Acute cystitis without hematuria; R41.82 Altered mental status, unspecified; R40.4 Transient alteration of awareness; F03.90 Unspecified dementia, unspecified severity, without behavioral disturbance, psychotic disturbance, mood disturbance, and anxiety; B96.20 Unspecified Escherichia coli [E. coli] as the cause of diseases classified elsewhere; Z79.82 Long term (current) use of aspirin; Z79.899 Other long term (current) drug therapy; Z88.5 Allergy status to narcotic agent
CPT/HCPCS: 36415; 70450; 71045; 80053; 81001; 82803; 83605; 84443; 84484; 85025; 86328; 87040; 87070; 87086; 87088; 87186; 87205; 94761; 96365; 96367; 99285; J1956; U0003

== ENCOUNTER → 2020-07-12 14:19 | Outpatient (CLI) | payer MEDICARE, BC, SELFPAY ==
[2020-07-12 14:36] LABS: Microscopic, Urine URINE MICROSCOPIC (MICROSCOPIC)
[2020-07-12 14:44] LABS: Appearance,Urine SL CLOUDY (Clear); Bilirubin,Urine Negative (Negative); Blood, Urine 3+ (Negative); Color,Urine YELLOW (Yellow); Glucose,Urine (UA) Negative (Negative); Ketones,Urine Negative (Negative); Leukocyte Esterase,Urine Negative (Negative); Nitrate,Urine Negative (Negative); Protein,Urine Negative (Negative); Specific Gravity, Urine >= 1.030 (1.005-1.030); Urobilinogen,Urine 0.2 EU/dl (0.2)
[2020-07-12 14:58] LABS: Calcium Oxalate Crystals,Urine 1+ /lpf; RBC,Urine 20-50 #/hpf (0-3)
== END ==
PROVIDERS: PCP Emergency Medicine; Visit Provider Emergency Medicine
DX: R31.9 Hematuria, unspecified (principal)
CPT/HCPCS: 81001

== ENCOUNTER → 2020-07-30 02:23 | Outpatient (CLI) | payer MEDICARE, BC, SELFPAY ==
[2020-07-30 03:32] LABS: Microscopic, Urine URINE MICROSCOPIC (MICROSCOPIC)
[2020-07-30 04:11] LABS: Appearance,Urine CLOUDY (Clear); Bilirubin,Urine Negative (Negative); Blood, Urine Negative (Negative); Color,Urine YELLOW (Yellow); Glucose,Urine (UA) Negative (Negative); Ketones,Urine TRACE (Negative); Leukocyte Esterase,Urine TRACE (Negative); Nitrate,Urine POSITIVE (Negative); PH,Urine 6.5 (5.0-8.5); Protein,Urine Negative (Negative)
[2020-07-30 05:03] LABS: Bacteria,Urine 4+ /lpf
== END ==
PROVIDERS: Visit Provider Emergency Medicine
DX: R41.0 Disorientation, unspecified (principal)
CPT/HCPCS: 81001; 87086; 87088; 87186

== ENCOUNTER → 2020-08-05 23:03 | Outpatient (CLI) | payer MEDICARE, BC, SELFPAY | PROVIDERS: Visit Provider Emergency Medicine | DX: Z51.81 Encounter for therapeutic drug level monitoring (principal) | CPT/HCPCS: 80048; 80202 ==

== ENCOUNTER → 2020-08-06 12:54 | Outpatient (CLI) | payer MEDICARE, MEDICAID, SELFPAY ==
[2020-08-06 14:39] LABS: Anion Gap 8.5 mEq/L (5-15); Blood Urea Nitrogen 10 mg/dl (7-17); Calcium 8.6 mg/dl (8.4-10.2); Carbon Dioxide 27 mmol/L (22.0-30.0); Chloride 106 mmol/L (98-107); Estimated Glomerular Filt Rate 212 ml/min (>60); GFR (African American) 256 ML/MIN (>60); Glucose 91 mg/dl (74-100); Sodium 136 mmol/L (136-145)
[2020-08-06 14:52] LABS: Vancomycin,Trough 8.9 ug/mL (5.0-10.0)
[2020-08-06 20:58] LABS: Anion Gap 7.9 mEq/L (5-15); Blood Urea Nitrogen 10 mg/dl (7-17); Carbon Dioxide 34 mmol/L (22.0-30.0); Chloride 101 mmol/L (98-107); Estimated Glomerular Filt Rate 152 ml/min (>60); GFR (African American) 184 ML/MIN (>60); Glucose 95 mg/dl (74-100); Potassium 3.9 mmoL/L (3.5-5.1); Sodium 139 mmol/L (136-145)
[2020-08-06 21:54] LABS: Calcium 9.8 mg/dl (8.4-10.2)
[2020-08-06 22:10] LABS: Vancomycin,Trough 6.8 ug/mL (5.0-10.0)
== END ==
PROVIDERS: Visit Provider Emergency Medicine
DX: Z51.81 Encounter for therapeutic drug level monitoring (principal)
CPT/HCPCS: 80048; 80202

== ENCOUNTER → 2020-08-08 00:57 | Outpatient (CLI) | payer MEDICARE, MEDICAID, SELFPAY ==
[2020-08-08 01:24] LABS: Vancomycin,Trough 12.5 ug/mL (5.0-10.0)
[2020-08-08 09:24] LABS: Chloride 103 mmol/L (98-107); Potassium 4.3 mmoL/L (3.5-5.1); Sodium 140 mmol/L (136-145)
[2020-08-08 09:27] LABS: Anion Gap 8.3 mEq/L (5-15); Blood Urea Nitrogen 12 mg/dl (7-17); Calcium 9.6 mg/dl (8.4-10.2); Carbon Dioxide 33 mmol/L (22.0-30.0); Estimated Glomerular Filt Rate 118 ml/min (>60); GFR (African American) 142 ML/MIN (>60); Glucose 109 mg/dl (74-100)
== END ==
PROVIDERS: Visit Provider Emergency Medicine
DX: N39.0 Urinary tract infection, site not specified (principal); Z51.81 Encounter for therapeutic drug level monitoring
CPT/HCPCS: 80048; 80202

== ENCOUNTER 2020-08-14 18:28 | Emergency (ER) | payer MEDICARE, MEDICAID, SELFPAY ==
[2020-08-14 18:29] VITALS: BP 147/82; PULSE 79; RESP 18; TEMP 36.8; O2SAT 93; BMI 18.0
--- NOTE | 2020-08-14 18:37 | HMH.EDGENADL ---
ED Disposition Clinical Impression: Fall Qualifiers: Encounter type: initial encounter Qualified Code(s): W19.XXXA - Unspecified fall, initial encounter Disposition: Home, Self-Care Condition on Discharge: Good Instructions: How to Prevent Falls Referrals: Joao Trevino MD [Primary Care Provider] - - Critical Care Critical Care Time: No Attestation: On 08/14/20, the high probability of a clinically significant, sudden or life threatening deterioration of the following system(s) required my full and direct attention, intervention and personal management. The time I documented below is in addition to time spent performing reported procedures but includes the following listed in this critical care notation. Medical Decision Making - Julian Inquiry Pt receiving controlled substance: No Vital Signs: 08/14/20 18:29 08/14/20 19:00 08/14/20 19:30 Temperature 98.3 F Temperature Source Oral Pulse Rate [Radial] 79 79 74 Respiratory Rate 18 17 15 Blood Pressure [Right Arm] 147/82 H 145/68 H 140/66 Blood Pressure Mean [Right Arm] 103 93 90 Blood Pressure Source [Right Arm] Automatic Cuff Automatic Cuff Blood Pressure Position [Right Arm] Sitting Supine Supine 02 Sat by Pulse Oximetry 93 L 94 L 93 L Oxygen Delivery Method Room Air Room Air Room Air 08/14/20 20:00 Temperature Temperature Source Pulse Rate [Radial] 81 Respiratory Rate 17 Blood Pressure [Right Arm] 145/69 H Blood Pressure Mean [Right Arm] 94 Blood Pressure Source [Right Arm] Automatic Cuff Blood Pressure Position [Right Arm] Supine 02 Sat by Pulse Oximetry 92 L Oxygen Delivery Method Room Air Orders (Tests/Meds): ORDERS Category Date Time Status CT cervical spine wo con Stat Cat Scan 08/14/20 18:[address] head/brain wo con Stat Cat Scan 08/14/20 18:[address] lumbar spine wo con Stat Cat Scan 08/14/20 18:54 Taken XR chest AP Stat Exams 08/14/20 19:13 Taken XR pelvis 1-2V Stat Exams 08/14/20 18:55 Taken - CT Data CT Scan: Head, C-Spine, L-Spine Time Received: 20:13 ([facility] fax) ED CT Reviewed: Yes: I have viewed the radiologist's interpretation Findings Narrative: Cervical spine: Severe multilevel degenerative changes but no acute fracture or malalignment. Head: Chronic changes in the brain but no acute intracranial abnormality. Lumbar spine: Severe degenerative changes but no acute fracture or malalignment. Chronic fracture of L1. General Adult HPI - General Chief complaint: Fall Stated complaint: fall Time Seen by Provider: 08/14/20 19:50 Mode of Arrival: EMS Limitations: Physical Limitations Description of Symptoms (Recalled from ER Triage Doc. by RN): to ed per squad pt resident [facility] reports pt fell transfering from wheelchair to chair, unwitnessed fall. report that pt was c/o lower back pain. pt arrives to ed c/o neck pain and denied lower back pain. pt denies any other c/o - History of Present Illness HPI narrative: Brought in by ambulance from [facility]. Reportedly fell trying to transfer from her chair. Patient has dementia. She does not remember the fall, she does not know where she is, she does not know why she is here. She says she feels fine. She denies any pain to me. Apparently at the longterm she did complain of some back pain which she now denies. Apparently to the nurse in our emergency department she complained of neck pain, which she now denies. She denies head pain. No pain in her extremities. Denies any illness. - Related Data Home Medications Medication Instructions Recorded Confirmed Aspirin 81 mg PO DAILY 06/19/20 08/05/20 Atorvastatin Calcium [Lipitor 10mg 10 mg PO HS 06/19/20 08/05/20 Tab] Buspirone HCl [Buspar 10mg 10 mg PO BID 06/19/20 08/05/20 tablet] Cyproheptadine HCl 4 mg PO TID 06/19/20 08/05/20 Donepezil HCl [Aricept 10mg 10 mg PO HS 06/19/20 08/05/20 tablet] Duloxetine HCl 30 mg PO DAILY 06/19/20 08/05/20 Meloxic
--- NOTE | 2020-08-14 18:51 | CT_ITS ---
PROCEDURE: CT CERVICAL SPINE WO CON CLINICAL INDICATION: fall pain Neck injury with pain, contusion/abrasion or hematoma, cervical sprain/strain the COMPARISON: No exams were available for comparison TECHNIQUE: Axial images obtained with sagittal and coronal reformats. All CT scans at the facility use one or more dose reduction, viz: automated exposure control, ma/kV adjustment per patient size (including targeted exams where dose is matched to indication, i.e. head), or iterative reconstruction technique. Axial spiral CT scanning performed of the cervical spine beginning at the base of the skull and continuing to the upper T-spine. 3-D multiplanar reconstruction with 3-D manipulation of volumetric data set in image rendering was completed by the radiologist and/or technologist with the supervision of the radiologist on independent workstation. FINDINGS: Multilevel cervical spondylosis. No acute fracture or dislocation. There is diffuse osteopenia. C2-C3: 3 mm anterolisthesis of C2. Degenerative disc disease C3-C4 and C4-C5 with a broad-based central and right paracentral disc osteophyte complex at C4-C5 with right lateral recess and foraminal narrowing and canal stenosis. C5-C6: Degenerate disc disease with bilateral foraminal narrowing. C6-C7: Degenerate disc disease with left-sided foraminal narrowing. Calcified granuloma left upper lobe. IMPRESSION: No acute fracture. Multilevel cervical spondylosis as detailed above Dictated by: Gustavo Matthews MD 08/15/2020 09:43 Gustavo Matthews MD in [facility] 08/15/2020 09:43
--- NOTE | 2020-08-14 18:53 | CT_ITS ---
PROCEDURE: CT HEAD/BRAIN WO CON CLINICAL INDICATION: head Head injury with headache/pain, contusion, abrasion or hematoma COMPARISON: CT CT HEAD/BRAIN WO CON from 06/19/2020 TECHNIQUE: Axial images obtained. All CT scans at the facility use one or more dose reduction, viz: automated exposure control, ma/kV adjustment per patient size (including targeted exams where dose is matched to indication, i.e. head), or iterative reconstruction technique. FINDINGS: No midline shift, mass effect, intracranial hemorrhage, hydrocephalus, or extra-axial fluid collection is evident. There is generalized atrophy with hypoattenuation of the periventricular white matter consistent with microangiopathic changes.. 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 No mastoid effusion. 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
--- NOTE | 2020-08-14 18:54 | CT_ITS ---
PROCEDURE: CT LUMBAR SPINE WO CON CLINICAL HISTORY: pain Fall with injury and pain COMPARISON: No exams were available for comparison TECHNIQUE: Axial images obtained with sagittal and coronal reformats. All CT scans at the facility use one or more dose reduction, viz: automated exposure control, ma/kV adjustment per patient size (including targeted exams where dose is matched to indication, i.e. head), or iterative reconstruction technique. FINDINGS: There is diffuse osteopenia. Wedge compression changes involve the superior endplate of L1 with loss of height anteriorly of approximately 30 percent. There is minimal buckling of the posterior superior cortex. This fracture is age indeterminate. There is degenerative disc disease at L2-L3 L3-L4 L4-5 and L5-S1 with mild facet and ligamentum hypertrophy. There is mild bilateral lateral recess and foraminal narrowing at L3-L4. There is 5 mm anterolisthesis of L4 on L5 with severe facet hypertrophic change and moderate right-sided foraminal narrowing. Bulging disc is present. Degenerative disc disease L5-S1 with facet hypertrophic change and moderate left-sided foraminal narrowing Incidental note is made of 2 hypodensities in the spleen which are incompletely imaged measuring 6 and 13 mm. IMPRESSION: 1. Age indeterminate wedge compression fracture of L1 with minimal buckling of the posterior cortex. 2. Multilevel lumbar spondylosis as detailed above. 3. There are 2 indeterminate splenic lesions measuring 6 and 13 mm. Dictated by: Gustavo Matthews MD 08/15/2020 09:47 Gustavo Matthews MD in [facility] 08/15/2020 09:47
--- NOTE | 2020-08-14 18:55 | XR_ITS ---
PROCEDURE: XR PELVIS 1-2V CLINICAL INDICATION: fall Posttraumatic pain COMPARISON: CT CT LUMBAR SPINE WO CON from 08/14/2020 TECHNIQUE: XR Pelvis AP View FINDINGS: No fracture or dislocation is evident. Mild osteoarthritic changes of the hips. Calcified densities are present in the right lower quadrant and may be due to lymph nodes which are calcified No lytic or blastic change. IMPRESSION: No acute findings. Dictated by: Gustavo Matthews MD 08/15/2020 06:48 Gustavo Matthews MD in [facility] 08/15/2020 06:48
[2020-08-14 19:00] VITALS: BP 145/68; PULSE 79; RESP 17; O2SAT 94
--- NOTE | 2020-08-14 19:13 | XR_ITS ---
PROCEDURE: XR CHEST AP CLINICAL HISTORY: FALL Posttraumatic pain COMPARISON: CR XR CHEST PORTABLE from 06/19/2020 CR XR CHEST PORTABLE from 06/20/2020 CR XR CHEST PORTABLE from 06/22/[address] LUMBAR SPINE WO CON from 08/14/2020 FINDINGS: Mild cardiomegaly without failure. Old granulomatous disease. No lobar consolidation or collapse. Blunting noted of the left CP angle along the left cardiac apex which may be due to pericardial fat pad or pleural effusion. Multiple calcified granulomas. Degenerative changes right shoulder. Prior kyphoplasty at T8 IMPRESSION: As above, no definite acute finding. Probable pericardial fat pad in the left lung base. CT may confirm. Dictated by: Gustavo Matthews MD 08/15/2020 06:46 Gustavo Matthews MD in [facility] 08/15/2020 06:46
[2020-08-14 19:30] VITALS: BP 140/66; PULSE 74; RESP 15; O2SAT 93
[2020-08-14 20:00] VITALS: BP 145/69; PULSE 81; RESP 17; O2SAT 92
[2020-08-14 21:45] VITALS: BP 124/75; PULSE 78; RESP 16; TEMP 36.2; O2SAT 98
[2020-08-14 22:30] VITALS: BP 131/79; PULSE 71; RESP 17; O2SAT 94
[2020-08-15] VITALS: BP 127/80; PULSE 69; RESP 17; O2SAT 92
== END 2020-08-15 00:06 | disposition home or self-care (01) ==
PROVIDERS: Emergency Provider Emergency Medicine; PCP Emergency Medicine
DX: M54.5 Low back pain (principal); M54.2 Cervicalgia; W07.XXXA Fall from chair, initial encounter; Y92.129 Unspecified place in nursing home as the place of occurrence of the external cause; F03.90 Unspecified dementia, unspecified severity, without behavioral disturbance, psychotic disturbance, mood disturbance, and anxiety; F41.8 Other specified anxiety disorders; E78.5 Hyperlipidemia, unspecified; I10 Essential (primary) hypertension; Z79.899 Other long term (current) drug therapy
CPT/HCPCS: 70450; 71045; 72125; 72131; 72170; 99283

== ENCOUNTER 2020-08-20 22:31 | Emergency (ER) | payer MEDICARE, MEDICAID, SELFPAY ==
[2020-08-20 22:28] VITALS: BP 162/74; PULSE 67; RESP 18; TEMP 36.8; O2SAT 96; BMI 20.1
--- NOTE | 2020-08-20 22:48 | CT_ITS ---
PROCEDURE: CT HEAD/BRAIN WO CON CLINICAL INDICATION: fall, hit posterior head Head injury with headache/pain, contusion, abrasion or hematoma COMPARISON: CT CT HEAD/BRAIN WO CON from 08/14/2020 TECHNIQUE: Axial images obtained. All CT scans at the facility use one or more dose reduction, viz: automated exposure control, ma/kV adjustment per patient size (including targeted exams where dose is matched to indication, i.e. head), or iterative reconstruction technique. FINDINGS: No midline shift, mass effect, intracranial hemorrhage, hydrocephalus, or extra-axial fluid collection is evident. There is generalized atrophy with hypoattenuation of the periventricular white matter consistent with microangiopathic changes. 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 No mastoid effusion. No sinus air-fluid level. There is a prominent scalp hematoma in the paracentral parietal occipital junction. No underlying fracture. IMPRESSION: No acute intracranial finding Left posterior scalp hematoma Dictated by: Gustavo Matthews MD 08/21/2020 06:43 Gustavo Matthews MD in [place] 08/21/2020 06:43
--- NOTE | 2020-08-20 22:49 | XR_ITS ---
PROCEDURE: XR PELVIS 1-2V CLINICAL INDICATION: unwitnessed fall Pain COMPARISON: CR XR PELVIS 1-2V from 08/14/2020 TECHNIQUE: XR Pelvis AP View FINDINGS: No fracture or dislocation is evident. No significant degenerative change. No lytic or blastic change. IMPRESSION: No acute findings. Dictated by: Gustavo Matthews MD 08/21/2020 05:28 Gustavo Matthews MD in [facility] 08/21/2020 05:28
--- NOTE | 2020-08-20 22:50 | XR_ITS ---
PROCEDURE: XR CHEST PORTABLE CLINICAL HISTORY: unwitnessed fall Pain COMPARISON: CR XR CHEST PORTABLE from 06/20/2020 CR XR CHEST PORTABLE from 06/22/2020 CR XR CHEST AP from 08/14/2020 FINDINGS: The cardiomediastinal silhouette and pulmonary vascularity are within normal limits. Multiple bilateral granulomas. Skin fold artifact on right Osteoarthritic change of the right shoulder IMPRESSION: No acute findings. Dictated by: Gustavo Matthews MD 08/21/2020 05:27 Gustavo Matthews MD in [facility] 08/21/2020 05:27
--- NOTE | 2020-08-20 22:51 | CT_ITS ---
PROCEDURE: CT CERVICAL SPINE WO CON CLINICAL INDICATION: unwitnessed fall, hit head Neck injury with pain, contusion/abrasion or hematoma, cervical sprain/strain the COMPARISON: CT CT CERVICAL SPINE WO CON from 08/14/2020 TECHNIQUE: Axial images obtained with sagittal and coronal reformats. All CT scans at the facility use one or more dose reduction, viz: automated exposure control, ma/kV adjustment per patient size (including targeted exams where dose is matched to indication, i.e. head), or iterative reconstruction technique. Axial spiral CT scanning performed of the cervical spine beginning at the base of the skull and continuing to the upper T-spine. 3-D multiplanar reconstruction with 3-D manipulation of volumetric data set in image rendering was completed by the radiologist and/or technologist with the supervision of the radiologist on independent workstation. FINDINGS: Multilevel cervical spondylosis. No acute fracture or dislocation. There is diffuse osteopenia. C2-C3: 3 mm anterolisthesis of 3 mm. Degenerative disc disease C3-C4 and C4-C5 with a broad-based central and right paracentral disc osteophyte complex at C4-C5 with right lateral recess and foraminal narrowing and canal stenosis. C5-C6: Degenerate disc disease with bilateral foraminal narrowing. C6-C7: Degenerate disc disease with left-sided foraminal narrowing The facets appear fused posteriorly at C2-C3 and C4. Thyroid gland is enlarged on both sides multiple nodules. The right-side larger left. Lung apices are clear. Scalp hematoma involves the left paracentral occipital region. 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 IMPRESSION: 1. No acute fracture. 2. Multilevel cervical spondylosis. 3. Posterior scalp hematoma Dictated by: Gustavo Matthews MD 08/21/2020 06:47 Gustavo Matthews MD in [facility] 08/21/2020 06:47
--- NOTE | 2020-08-20 22:52 | PC.NURSE ---
pt off floor via stretcher to CT scan
[2020-08-20 23:00] VITALS: BP 149/75; PULSE 77; RESP 17; O2SAT 98
--- NOTE | 2020-08-20 23:13 | PC.NURSE ---
pt has returned from CT scan, side rails up x2 for safety, and call light within reach
[2020-08-20 23:30] VITALS: BP 164/89; PULSE 79; RESP 15; O2SAT 95
--- NOTE | 2020-08-20 23:42 | HMH.EDFALL ---
ED Disposition Clinical Impression: Head contusion Qualifiers: Encounter type: initial encounter Contusion of head detail: scalp Qualified Code(s): S00.03XA - Contusion of scalp, initial encounter Scalp hematoma Qualifiers: Encounter type: initial encounter Qualified Code(s): S00.03XA - Contusion of scalp, initial encounter Dementia Qualifiers: Dementia type: unspecified type Dementia behavioral disturbance: without behavioral disturbance Qualified Code(s): F03.90 - Unspecified dementia without behavioral disturbance Fall Qualifiers: Encounter type: initial encounter Qualified Code(s): W19.XXXA - Unspecified fall, initial encounter Disposition: Home, Self-Care Condition on Discharge: Good Instructions: How to Prevent Falls Additional Instructions: resume prev care at [facility] Referrals: Joao Trevino MD [Primary Care Provider] - - Critical Care Critical Care Time: No Attestation: On 08/20/20, the high probability of a clinically significant, sudden or life threatening deterioration of the following system(s) required my full and direct attention, intervention and personal management. The time I documented below is in addition to time spent performing reported procedures but includes the following listed in this critical care notation. Medical Decision Making - Medical Records Medical records reviewed: Yes: I reviewed the patient's medical records. - Julian Inquiry Pt receiving controlled substance: No Vital Signs: 08/20/20 22:28 Temperature 98.3 F Temperature Source Oral Pulse Rate [Right Brachial] 67 Respiratory Rate 18 Blood Pressure [Right Arm] 162/74 H Blood Pressure Mean [Right Arm] 103 Blood Pressure Source [Right Arm] Automatic Cuff Blood Pressure Position [Right Arm] Supine 02 Sat by Pulse Oximetry 96 Oxygen Delivery Method Room Air Orders (Tests/Meds): ORDERS Category Date Time Status CT cervical spine wo con Stat Cat Scan 08/20/20 22:[address] head/brain wo con Stat Cat Scan 08/20/20 22:48 Taken Chest XR -- portable [XR chest portable] Stat Exams 08/20/20 22:50 Taken XR pelvis 1-2V Stat Exams 08/20/20 22:49 Taken - Radiology Data #1 Image(s): Chest, Pelvis Image Reviewed: Yes I reviewed the patient's radiology image Preliminary Findings: No Fracture Seen - CT Data CT Scan: Head, C-Spine Time Received: 23:[address] Reviewed: Yes: I have viewed the radiologist's interpretation Preliminary Findings: No Fracture Seen Medical Decision Narrative: at baseline Fall HPI - General Chief Complaint: Fall Stated Complaint: Unwitnessed fall Time Seen by Provider: 08/20/20 23:00 Mode of Arrival: EMS Source of Information: Patient, EMS, Medical Record Limitations: Altered Mental Status Description of Symptoms (Recalled from ER Triage Doc. by RN): Per EMS & longterm: pt expierenced an unwitnessed fall, hitting the back of her head against a wall. Pt has h/o dementia and falls and unable to provide detailed hx. Pt does c/o tenderness to the back of her head and states I have a bump on my head . Small amount of bleeding and some bruising noted to posterior head. - History of Present Illness HPI Narrative: fell at [facility] with head injury MD complaint: fall Onset (ago): hour(s) Fall from: chair Fall witnessed: no Place fall occurred: longterm/SNF Loss of consciousness: none Prolonged down time: no Context: tripped/slipped, history of frequent falls Location of injury: head, neck Severity: moderate Associated symptoms (after fall): denies - Related Data Home Medications Medication Instructions Recorded Confirmed Aspirin 81 mg PO DAILY 06/19/20 08/20/20 Buspirone HCl [Buspar 10mg 10 mg PO BID 06/19/20 08/20/20 tablet] Cyproheptadine HCl 4 mg PO TID 06/19/20 08/20/20 Donepezil HCl [Aricept 10mg 10 mg PO HS 06/19/20 08/20/20 tablet] Duloxetine HCl 30 mg PO DAILY 06/19/20 08/20/20 Memantine HCl [Memantine 10mg 10 mg PO BID 06/19/20 0
--- NOTE | 2020-08-20 23:58 | PC.NURSE ---
Renetta at [facility]. updated on pt condition and her return to [facility].
[2020-08-21 00:03] VITALS: BP 154/78; PULSE 68; RESP 16; TEMP 36.8; O2SAT 98
--- NOTE | 2020-08-21 00:04 | PC.NURSE ---
ems at bedside
== END 2020-08-21 00:08 | disposition home or self-care (01) ==
PROVIDERS: Emergency Provider Emergency Medicine; PCP Emergency Medicine
DX: S00.93XA Contusion of unspecified part of head, initial encounter (principal); W01.0XXA Fall on same level from slipping, tripping and stumbling without subsequent striking against object, initial encounter; Y92.129 Unspecified place in nursing home as the place of occurrence of the external cause; F03.90 Unspecified dementia, unspecified severity, without behavioral disturbance, psychotic disturbance, mood disturbance, and anxiety; F41.8 Other specified anxiety disorders; E78.5 Hyperlipidemia, unspecified; I10 Essential (primary) hypertension; Z79.899 Other long term (current) drug therapy; Z88.5 Allergy status to narcotic agent
CPT/HCPCS: 70450; 71045; 72125; 72170; 99283

== ENCOUNTER → 2020-08-28 08:39 | Outpatient (POV) | payer MEDICARE, MEDICAID, SELFPAY ==
[2020-08-28 08:55] VITALS: BP 135/85; PULSE 74; RESP 18; O2SAT 98; BMI 28.0
--- NOTE | 2020-08-28 09:32 | HMH.PMCON ---
Assessment and Plan (1) Degenerative disc disease Status: Chronic Category: Medical (2) Back pain Status: Chronic Category: Medical Code(s): M54.9 - Dorsalgia, unspecified - Assessment and plan all Dx Assessment and Plan for all problems:: I do believe at this time given the patient's current complaints of pain that there is no intervention necessary at this time as needed pain medication would be appropriate for her at this point. If there is any additional issues please contact our office. Patient will be followed up in [address] Wilhelm has reviewed this note and agrees with this plan of care. This note was dictated using voice recognition software and may contain errors or omissions HPI - Data of Consult Consult date: 08/28/20 Requesting Physician: Jasmin Brown APRN Primary Care Provider: Joao Trevino MD - Consult Narrative Reason for consult: Pain History of present illness: Ms. Seaman is a 85 year old female who presents today for consultation regards to her back pain. Patient had a CT scan with an indeterminant aged compression fracture. However on examination patient states that she is not having no back pain at this time she states she is having some generalized pain mostly in her neck and shoulder she states that this is stiffness. Patient and I discussed options in regards to pain management I do believe at this time as needed pain medication would be the most appropriate treatment of the patient's current pain. She rates it a 5 out of 10. CC: Jasmin Brown APRN [facility] History I have reviewed the patient's past medical history: Yes Medical History: Reports:: Anxiety, Dementia, Depression, Hyperlipidemia, Hypertension, Urinary Tract Infection Denies:: Cancer, Diabetes Mellitus Type 1, Diabetes Mellitus Type 2, MRSA *Have you ever received a pneumonia vaccine?: Yes *Have you received a flu vaccine this season?: Yes Other Medical History: Reports: Arthritis Amputation: No Fractures: No - *Social History Smoking Status: Never smoker Alcohol Intake: never *Occupational Status:: other Housing: house Household Members: other *Travel in the last 8 weeks: None - Psychiatric History Pschychiatric History:: Reports:: Anxiety, Depression Family Hx:: Unable to obtain Review of Systems - Review of Systems ROS General: no recent weight change, no fever, no sleep disturbances Respiratory: no cough, no shortness of air, no recurring pulmonary infections Cardiovascular/Peripheral Vascular: No chest pain, No palpitations, no edema, no shortness of breath. Gastrointestinal: no new onset incontinence, normal bowel movements reported Genitourinary: no new onset incontinence Musculoskeletal: Generalized pain, neck pain Psychiatric: normal mood/ affect, Neurological: [denies new onset weakness in extremities], [denies new onset balance issues] patient does utilize assistance for ambulation Meds Home Medications Medication Instructions Recorded Confirmed Type Aspirin 81 mg PO DAILY 06/19/20 08/20/20 History Buspirone HCl [Buspar 10mg 10 mg PO BID 06/19/20 08/20/20 History tablet] Cyproheptadine HCl 4 mg PO TID 06/19/20 08/20/20 History Donepezil HCl [Aricept 10mg 10 mg PO HS 06/19/20 08/20/20 History tablet] Duloxetine HCl 30 mg PO DAILY 06/19/20 08/20/20 History Memantine HCl [Memantine 10mg 10 mg PO BID 06/19/20 08/20/20 History Tablet] Mirtazapine 15 mg PO HS 06/19/20 08/20/20 History lisinopriL [Lisinopril 2.5mg Tab] 2.5 mg PO DAILY 06/19/20 08/20/20 History Atorvastatin Calcium [Lipitor 10mg 10 mg PO HS 08/20/20 08/20/20 History Tablet*] Cyproheptadine HCl 4 mg PO TID 08/20/20 08/20/20 History risperiDONE [Risperdal 0.25mg 0.25 mg PO HS 08/20/20 08/20/20 History Tablet] Allergies Allergy/AdvReac Type Severity Reaction Status Date / Time codeine Allergy Verified 08/05/20 13:17 oxycodone Allergy Verified
== END ==
PROVIDERS: PCP Emergency Medicine; Visit Provider Clinical Nurse Specialist Family Health
DX: M54.9 Dorsalgia, unspecified (principal)
CPT/HCPCS: 99202; G0463

== ENCOUNTER 2020-09-04 08:46 | Observation (INO) | payer MEDICARE, MEDICAID, SELFPAY ==
[2020-09-04] VITALS (27 sets, daily range): BP systolic 93–168; BP diastolic 62–75; PULSE 69–96; RESP 15–32; TEMP 36.6–37.4; O2SAT 90–100; BMI 22.3; BMI 21.0
--- NOTE | 2020-09-04 09:02 | XR_ITS ---
PROCEDURE: XR CHEST PORTABLE CLINICAL HISTORY: Cough COMPARISON: CR XR CHEST PORTABLE from 06/22/2020 CR XR CHEST AP from 08/14/2020 CR XR CHEST PORTABLE from 08/20/2020 FINDINGS: The cardiomediastinal silhouette and pulmonary vascularity are within normal limits. There is evidence of old granulomatous disease. Increased markings are present in both lung bases suggesting atelectasis and/or infiltrate. There has been prior vertebroplasty at T8. No acute bony abnormalities. IMPRESSION: Patchy bibasilar atelectasis or infiltrate. Dictated by: Gustavo Matthews MD 09/04/2020 09:46 Gustavo Matthews MD in [place] 09/04/2020 09:46
--- NOTE | 2020-09-04 09:24 | HMH.EDGENADL ---
ED Disposition Clinical Impression: Hypoxia Pneumonia Qualifiers: Pneumonia type: due to unspecified organism Laterality: bilateral Lung location: lower lobe of lung Qualified Code(s): J18.9 - Pneumonia, unspecified organism Disposition: Admitted As Inpatient Condition on Discharge: [facility] Critical Care Critical Care Time: No Attestation: On 09/04/20, the high probability of a clinically significant, sudden or life threatening deterioration of the following system(s) required my full and direct attention, intervention and personal management. The time I documented below is in addition to time spent performing reported procedures but includes the following listed in this critical care notation. Medical Decision Making - Julian Inquiry Pt receiving controlled substance: No Vital Signs: 09/04/20 08:48 09/04/20 08:53 09/04/20 09:00 Temperature 98 F Temperature Source Oral Pulse Rate 94 H 95 H Pulse Rate [Brachial] 96 H Respiratory Rate 24 32 H 26 H Blood Pressure 110/66 Blood Pressure [Right Arm] 136/67 Blood Pressure Mean 80 Blood Pressure Mean [Right Arm] 90 02 Sat by Pulse Oximetry 96 95 91 L Oxygen Delivery Method Nasal Cannula Oxygen Flow Rate (LPM) 4 09/04/20 09:15 09/04/20 09:30 09/04/20 09:45 Temperature Temperature Source Pulse Rate 91 H 88 74 Pulse Rate [Brachial] Respiratory Rate 23 24 20 Blood Pressure 134/71 Blood Pressure [Right Arm] Blood Pressure Mean 92 Blood Pressure Mean [Right Arm] 02 Sat by Pulse Oximetry 95 96 99 Oxygen Delivery Method Nasal Cannula Oxygen Flow Rate (LPM) 2 09/04/20 09:59 09/04/20 10:00 09/04/20 10:15 Temperature Temperature Source Pulse Rate Pulse Rate [Brachial] Respiratory Rate 20 20 19 Blood Pressure 117/64 111/62 Blood Pressure [Right Arm] Blood Pressure Mean 87 87 Blood Pressure Mean [Right Arm] 02 Sat by Pulse Oximetry 96 Oxygen Delivery Method Oxygen Flow Rate (LPM) 2 09/04/20 10:30 09/04/20 10:45 09/04/20 11:00 Temperature Temperature Source Pulse Rate 69 69 Pulse Rate [Brachial] Respiratory Rate 17 16 17 Blood Pressure 113/68 Blood Pressure [Right Arm] Blood Pressure Mean 84 Blood Pressure Mean [Right Arm] 02 Sat by Pulse Oximetry 100 100 100 Oxygen Delivery Method Nasal Cannula Nasal Cannula Oxygen Flow Rate (LPM) 2 2 2 09/04/20 11:01 Temperature Temperature Source Pulse Rate 69 Pulse Rate [Brachial] Respiratory Rate 15 Blood Pressure 93/75 L Blood Pressure [Right Arm] Blood Pressure Mean 78 Blood Pressure Mean [Right Arm] 02 Sat by Pulse Oximetry 94 L Oxygen Delivery Method Nasal Cannula Oxygen Flow Rate (LPM) 2 - Lab Data Lab Results 09/04/20 09:10: Chlamy pneumoniae PCR Not detected, Adenovirus (PCR) Not detected, B. pertussis DNA (PCR) Not detected, Coronavirus OC43 (PCR) Not detected, Coronavirus HKU1 (PCR) Not detected, Coronavirus 229E (PCR) Not detected, SARS-CoV-2 (PCR) Not detected, Coronavirus NL63 (PCR) Not detected, Human Metapneumovir PCR Not detected, Influenza A (H1) PCR Not detected, Influ A (H1N1/09) PCR Not detected, Influenza A (H3) PCR Not detected, Influenza Type A (PCR) Not detected, Influenza Type B (PCR) Not detected, M. pneumoniae (PCR) Not detected, Parainfluenza 1 (PCR) Not detected, Parainfluenza 2 (PCR) Not detected, Parainfluenza 3 (PCR) Not detected, Parainfluenza 4 (PCR) Not detected, RSV (PCR) Not detected, Entero/Rhino (PCR) Not detected 09/04/20 09:10: WBC 9.5, RBC 4.45, Hgb 13.6, Hct 42.6, MCV 95.6, MCH 30.5, MCHC 31.9, RDW 15.1, Plt Count 220, MPV 7.8, Neut % (Auto) 75.4, Lymph % (Auto) 15.1, [place] % (Auto) 4.5, Eos % (Auto) 4.3, Baso % (Auto) 0.7, Neut # (Auto) 7.2, Lymph # (Auto) 1.4, [place] # (Auto) 0.4, Eos # (Auto) 0.4, Baso # (Auto) 0.1 09/04/20 09:10: Sodium 143, Potassium 3.7, Chloride 106, Carbon Dioxide 31 H, Anion Gap 9.7, BUN 15, Creatinine 0.60, Estimated Creat Clear 39, Estimated GFR
[2020-09-04 09:30] LABS: Adenovirus,PCR Not Detected (NotDetected); Bordetella Pertussis Not Detected (NotDetected); Chlamydophila Pneumoniae, PCR Not Detected (NotDetected); Coronavirus 19, PCR Not Detected (NotDetected); Coronavirus 229E Not Detected (NotDetected); Coronavirus NL63 Not Detected (NotDetected); Coronavirus OC43 Not Detected (NotDetected); Coronovirus HKU1,PCR Not Detected (NotDetected); Human Metapneumovirus Not Detected (NotDetected); Influenza A, PCR Not Detected (NotDetected); Influenza AH1, 2009 Not Detected (NotDetected); Influenza AH1, PCR Not Detected (NotDetected); Influenza AH3,PCR Not Detected (NotDetected); Influenza B, PCR Not Detected (NotDetected); Mycoplasma Pneumoniae, PCR Not Detected (NotDetected); Parainfluenza 1, PCR Not Detected (NotDetected); Parainfluenza 2, PCR Not Detected (NotDetected); Parainfluenza 3, PCR Not Detected (NotDetected); Parainfluenza 4, PCR Not Detected (NotDetected); Respiratory Syncytial Virus Not Detected (NotDetected); Rhinovirus/Enterovirus Not Detected (NotDetected)
[2020-09-04 09:39] LABS: Basophils # 0.1 K/mm3 (0-0.2); Basophils % 0.7 % (0.1-2.0); Eosinophils # 0.4 K/mm3 (0.0-0.4); Eosinophils % 4.3 % (0.1-12.0); Hematocrit 42.6 % (37.0-47.0); Hemoglobin 13.6 g/dL (12.2-16.2); Lymphocytes # 1.4 K/mm3 (0.7-4.5); Lymphocytes % 15.1 % (10-50); Mean Corpuscular HGB Conc 31.9 g/dL (31.8-35.4); Mean Corpuscular Hemoglobin 30.5 pg (27.0-31.2); Mean Corpuscular Volume 95.6 fl (81-99); Mean Platelet Volume 7.8 fl (7.4-10.4); Monocytes # 0.4 K/mm3 (0.1-1.0); Monocytes % 4.5 % (1.7-9.3); Neutrophils # 7.2 K/mm3 (1.8-7.8); Neutrophils % 75.4 % (37.0-80.0); Platelet Count 220 K/mm3 (142-424); Red Blood Count 4.45 M/mm3 (4.20-5.40); Red Cell Distribution Width 15.1 % (11.5-17.5); White Blood Count 9.5 K/mm3 (4.8-10.8)
[2020-09-04 09:42] LABS: Chloride 106 mmol/L (98-107); Potassium 3.7 mmoL/L (3.5-5.1); Sodium 143 mmol/L (136-145)
[2020-09-04 09:44] LABS: Blood Urea Nitrogen 15 mg/dl (7-17); Creatinine Clearance Estimated 39 mL/min (50-200); Estimated Glomerular Filt Rate 95 ml/min (>60); GFR (African American) 115 ML/MIN (>60); Lactic Acid 1.8 mmol/L (0.7-2.1)
[2020-09-04 09:45] LABS: Alanine Aminotransferase 19 U/L (12-78); Albumin Level 4.1 g/dl (3.5-5.0); Albumin/Globulin Ratio 1.2 (1.1-1.8); Alkaline Phosphatase 108 U/L (38-126); Anion Gap 9.7 mEq/L (5-15); Aspartate Amino Transferase 26 U/L (14-36); Bilirubin,Total 0.4 mg/dl (0.2-1.3); Carbon Dioxide 31 mmol/L (22.0-30.0); Globulin 3.4 g/dL (1.3-3.2); Glucose 124 mg/dl (74-100); Total Protein,Serum 7.5 g/dl (6.3-8.2)
--- NOTE | 2020-09-04 11:06 | PC.NURSE ---
Dr Bocanegra speaking with Dr Raza at this time.
--- NOTE | 2020-09-04 11:42 | P.CONPHA_ITS ---
[facility] Pharmacy VTE Monitoring - Patient Demographics Admission date: 09/04/20 Report Date: 09/04/20 Time: 11:42 Allergies/Adverse Reactions: Patient Allergies codeine Allergy (Verified 08/05/20 13:17) oxycodone Allergy (Verified 08/05/20 13:17) Height: 1.63 m Weight: 58.967 kg Patient Problems: Current Active Problems Pneumonia (Acute) Hypoxia (Acute) - VTE Risk Labs: VTE Related Lab Results Hgb 13.6 g/dL (12.2-16.2) 09/04/20 09:10 Hct 42.6 % (37.0-47.0) 09/04/20 09:10 Plt Count 220 K/mm3 (142-424) 09/04/20 09:10 BUN 15 mg/dl (7-17) 09/04/20 09:10 Creatinine 0.60 mg/dl (0.52-1.04) 09/04/20 09:10 Estimated Creat Clear 39 mL/min (50-200) 09/04/20 09:10 Clinical Trial Participant: No - Prophylaxis VTE Prophylaxis Ordered?: Yes Types of VTE Prophylaxis: TEDS Knee High
--- NOTE | 2020-09-04 11:55 | PC.NURSE ---
02 SATS OF 87% RA. PT PLACED BACK ON 02 4L
--- NOTE | 2020-09-04 12:04 | HMH.PHAINT ---
verified home medication list with list from [facility]
--- NOTE | 2020-09-04 12:07 | PC.NURSE ---
ATTEMPTED TO CALL REPORT. NURSE WILL HAVE TO CALL BACK
--- NOTE | 2020-09-04 12:26 | PC.NURSE ---
REPORT CALLED TO BRANDON GILMAN
--- NOTE | 2020-09-04 17:40 | PC.NURSE ---
Pt is alert to self with confusion, stated she lived in [place], [place] and didn't know where or why she was here. Therefore, admission answers were limited. 4 L NC, rhonchi in BUL lungs, s1,s2, CB in reach. Bed alarm is on r/t safety. Meds per aug. BS x 4 and abd soft and non tender. Pt is incontinent of B&B and has brief on currently. MX continues.
--- NOTE | 2020-09-04 18:26 | PC.NURSE ---
RA SATS 86%. RETURN PT TO 4L N/C
--- NOTE | 2020-09-04 18:32 | HMH.HP ---
*Admission Date: 09/04/20 *Chief complaint: pneumonia with hypoxia *History of present illness: Patient is an 85-year-old white female, resident of [facility] who was admitted through the emergency room for cough and dyspnea. She was reported to have an elevated respiratory rate of 28, her initial labs in the ER were fairly unremarkable, her lactate was negative. Chest x-ray demonstrated bibasilar elective cyst versus infiltrative process. She is admitted for further evaluation and treatment. Patient is somewhat demented, obtaining details of history preceding admission was rather difficult. At the time of her exam she was in no respiratory distress, had no chest pain, was confused but I think this is her baseline dementia. [facility] History Medical History: Reports:: Anxiety, Dementia, Depression, Hyperlipidemia, Hypertension, Urinary Tract Infection Denies:: Cancer, Diabetes Mellitus Type 1, Diabetes Mellitus Type 2, MRSA *Have you ever received a pneumonia vaccine?: (unknown) *Have you received a flu vaccine this season?: (unknown) Other Medical History: Reports: Arthritis Amputation: No Fractures: No - *Social History Smoking Status: Never smoker Alcohol Intake: never *Occupational Status:: disabled Housing: house Household Members: other *Travel in the last 8 weeks: None - Psychiatric History Pschychiatric History:: Reports:: Anxiety, Depression Family Hx:: Unable to obtain Review of Systems - Constitutional Reports lack of energy, Denies chills - Eyes Denies change in vision - ENT Denies abnormal hearing - *Cardiovascular Reports shortness of breath, Denies chest pain, Denies chest pain at rest - *Respiratory Reports chest congestion, Reports cough - *Gastrointestinal Denies abdominal pain - *Genitourinary Denies painful urination - *Musculoskeletal Reports decreased muscle mass, Reports muscle weakness - Integumentary/Breasts Denies yellowing of the skin - *Neurologic Reports abnormal walking, Denies headache(s) - Psychiatric Reports confusion, Reports memory loss - Endocrine Denies heat intolerance, Denies increased thirst - Hematologic/Lymphatic Denies easy bleeding, Denies easy bruising - Allergic/Immunologic Denies hives Meds Home Medications Medication Instructions Recorded Confirmed Type Aspirin 81 mg PO DAILY 06/19/20 09/04/20 History Buspirone HCl [Buspar 10mg 10 mg PO BID 06/19/20 09/04/20 History tablet] Donepezil HCl [Aricept 10mg 10 mg PO HS 06/19/20 09/04/20 History tablet] Duloxetine HCl 30 mg PO DAILY 06/19/20 09/04/20 History Memantine HCl [Memantine 10mg 10 mg PO BID 06/19/20 09/04/20 History Tablet] Mirtazapine 15 mg PO HS 06/19/20 09/04/20 History lisinopriL [Lisinopril 2.5mg Tab] 2.5 mg PO DAILY 06/19/20 09/04/20 History Atorvastatin Calcium [Lipitor 10mg 10 mg PO HS 08/20/20 09/04/20 History Tablet*] Cyproheptadine HCl 4 mg PO TID 08/20/20 09/04/20 History risperiDONE [Risperdal 0.25mg 0.25 mg PO BID 08/20/20 09/04/20 History Tablet] Lactulose [Lactulose 20gm/30ml 20 gm PO DAILYP PRN 09/04/20 09/04/20 History Oral Soln] Sennosides/Docusate Sodium [Senna 1 each PO BID 09/04/20 09/04/20 History Plus 8.6-50 mg Tablet] bisacodyL [Dulcolax 10mg Supp] 10 mg RC DAILYP PRN 09/04/20 09/04/20 History Allergies Allergy/AdvReac Type Severity Reaction Status Date / Time codeine Allergy Verified 08/05/20 13:17 oxycodone Allergy Verified 08/05/20 13:17 Exam Vital signs and Labs for Last 24 Hours: Temp Pulse Resp BP Pulse Ox 98.3 F 82 16 138/71 93 L 09/04/20 16:00 09/04/20 16:00 09/04/20 16:00 09/04/20 16:00 09/04/20 18:24 Laboratory Results - last 24 hr 09/04/20 09:10: Chlamy pneumoniae PCR Not detected, Adenovirus (PCR) Not detected, B. pertussis DNA (PCR) Not detected, Coronavirus OC43 (PCR) Not detected, Coronavirus HKU1 (PCR) Not detected, Coronavirus 229E (PCR) Not detected, SARS-
--- NOTE | 2020-09-04 18:37 | PC.WOUNDNOTE ---
Addendum entered by Samir Maria RN 09/04/20 18:40: 1 X 0.5 cm, no drainage, odor, or exudate Original Note: Wound Location: Length: Width: Depth: Undermining Y/N: Tunneling cm: Granulation %: Slough/necrotic tissue %: Inflammation/swelling Y/N: Pain and/or tenderness Y/N: Exudate: Serosanguinous Sanguinous Serosanguinous Seropurulent Purulent Color: Clear Renetta Cloudy/milky [place] Red Green Yellow Brown [place] Blue Consistency: Thick Thin Amount: None NO Scant Small Moderate Large Odor Y/N: L inner foot dry calloused area 1 X 0.5 cm
--- NOTE | 2020-09-04 18:41 | PC.WOUNDNOTE ---
Wound Location: R outer foot Length:1 cm x Width:1 cm Depth: Undermining Y/N: N Tunneling cm: Granulation %: Slough/necrotic tissue %:N Inflammation/swelling Y/N: Pain and/or tenderness Y/N: Exudate:N Serosanguinous Sanguinous Serosanguinous Seropurulent Purulent Color: Clear Renetta Cloudy/milky [place] Red slightly Green Yellow Brown [place] Blue Consistency: Thick Thin Amount: None Scant Small Moderate Large Odor Y/N:N
--- NOTE | 2020-09-04 18:50 | PC.NURSE ---
Spoke with Lucie Whiting with [employer] to get photo consent for photos to be taken of bilateral feet.
--- NOTE | 2020-09-04 19:30 | PC.NURSE ---
02 decreased to 3 L NC and sats 94% currently.
[2020-09-05 04:00] VITALS: BP 154/80; PULSE 83; RESP 19; TEMP 36.8; O2SAT 93
--- NOTE | 2020-09-05 04:50 | PC.NURSE ---
Patient A&O x 1 to person must be reoriented to place, situation; very unstable on her feet needs assistance x 1, tries to get up on her own have initiated bed alarm for safety; she is able to swallow her medication 1-2 tablets at a time with no difficulty; has been given her call light multiple times with reminders of what it is and when to use it but quickly unable to restate; bed is in lowest level for safety and call light in reach; will continue to monitor.
[2020-09-05 05:15] VITALS: BMI 21.2
--- NOTE | 2020-09-05 06:00 | XR_ITS ---
PROCEDURE: XR CHEST PORTABLE CLINICAL HISTORY: pneumonia COMPARISON: CR XR CHEST AP from 08/14/2020 CR XR CHEST PORTABLE from 08/20/2020 CR XR CHEST PORTABLE from 09/04/2020 FINDINGS: The cardiomediastinal silhouette and pulmonary vascularity are within normal limits. Atelectasis or infiltrate in the right lung base unchanged. Old granulomatous disease. Infiltrate in the left lung base has shown some improvement. There is severe right-sided subacromial stenosis IMPRESSION: Improving left basilar infiltrate with persistent right basilar infiltrate or atelectatic change Dictated by: Gustavo Matthews MD 09/05/2020 06:53 Gustavo Matthews MD in [facility] 09/05/2020 06:53
[2020-09-05 07:25] LABS: Basophils # 0.1 K/mm3 (0-0.2); Basophils % 0.8 % (0.1-2.0); Eosinophils # 0.6 K/mm3 (0.0-0.4); Eosinophils % 5.8 % (0.1-12.0); Hematocrit 39.2 % (37.0-47.0); Hemoglobin 12.5 g/dL (12.2-16.2); Lymphocytes # 1.8 K/mm3 (0.7-4.5); Lymphocytes % 17.8 % (10-50); Mean Corpuscular HGB Conc 31.9 g/dL (31.8-35.4); Mean Corpuscular Hemoglobin 30.3 pg (27.0-31.2); Mean Corpuscular Volume 94.9 fl (81-99); Mean Platelet Volume 7.7 fl (7.4-10.4); Monocytes # 0.4 K/mm3 (0.1-1.0); Monocytes % 4.3 % (1.7-9.3); Neutrophils # 7.3 K/mm3 (1.8-7.8); Neutrophils % 71.4 % (37.0-80.0); Platelet Count 205 K/mm3 (142-424); Red Blood Count 4.13 M/mm3 (4.20-5.40); White Blood Count 10.3 K/mm3 (4.8-10.8)
[2020-09-05 07:37] LABS: Alanine Aminotransferase 14 U/L (12-78); Albumin Level 3.8 g/dl (3.5-5.0); Albumin/Globulin Ratio 1.1 (1.1-1.8); Alkaline Phosphatase 98 U/L (38-126); Anion Gap 8.6 mEq/L (5-15); Aspartate Amino Transferase 28 U/L (14-36); Bilirubin,Total 0.6 mg/dl (0.2-1.3); Blood Urea Nitrogen 10 mg/dl (7-17); Calcium 9.5 mg/dl (8.4-10.2); Carbon Dioxide 30 mmol/L (22.0-30.0); Chloride 107 mmol/L (98-107); Creatinine Clearance Estimated 35 mL/min (50-200); Estimated Glomerular Filt Rate 118 ml/min (>60); GFR (African American) 142 ML/MIN (>60); Globulin 3.4 g/dL (1.3-3.2); Glucose 105 mg/dl (74-100); Potassium 3.6 mmoL/L (3.5-5.1); Sodium 142 mmol/L (136-145); Total Protein,Serum 7.2 g/dl (6.3-8.2)
[2020-09-05 08:00] VITALS: BP 141/73; PULSE 74; RESP 18; TEMP 36.7; O2SAT 93
--- NOTE | 2020-09-05 08:38 | HMH.SLDYSPHA ---
Speech & Language Evaluation Speech/Language Dysphagia Evaluation Start: 09/05/20 08:32 Freq: ONCE Status: Active Protocol: Document 09/05/20 08:15 JANNETTE (Rec: 09/05/20 08:38 JANNETTE [id number]) Dysphagia Assess/Goals/Plan Assessment Date of Evaluation: 09/05/20 Evaluation Type Initial Certification Assessment/Problems Dysphagia Does Patient Qualify for Service No Qualify/Failure Comment Patient showed no overt s/s of dysphagia Recommendations PHYSICIAN CERTIFICATION: The specified therapy services are required, authorized, and reviewed every 30 days. Diet Recommendations Normal Liquid Type Recommendations Normal/Thin Plan Pt/Guardian verbally ack understanding Yes: notified of dx/prognosis/goals G -code Required No General Information General Current Food Consistancy Regular,Thin Liquids Dentition Good Dentition Oxygen Status Nasal Cannula Facial Symmetry Symmetrical Patient Orientation Person,Place,Time Ability to Follow Directions Excellent Communication Ability No Impairment Dysphagia:Food Presentation Evaluation Food Type Regular,Liquid,Pudding Dysphagia Evaluation Summary Ms. Seaman was seen for a bedside evaluation of swallowing after being admitted for feeling like food was stuck . This morning she reports no troubles with eating or drinking. She was given the following consistencies: thins via straw and open cup, pudding, and regular. No signs or symptoms were noted during evaluation. At this time, it is recommended that Ms. Seaman remain on current diet of regular with thin liquids. Speech therapy is not recommended. Stroke Dysphagia Assessment PHYSICIAN CERTIFICATION: I certify the specified therapy services for Trini Seaman are required, authorized, and reviewed every 30 days.
--- NOTE | 2020-09-05 08:40 | CT_ITS ---
PROCEDURE: CT ANGIO CHEST CLINCIAL INDICATION: low 02 Low O2 saturation, pneumonia COMPARISON: CR XR CHEST PORTABLE from 09/04/2020 CR XR CHEST PORTABLE from 09/05/2020 TECHNIQUE: IV Contrast: 70ML Isovue 370 Axial images obtained with sagittal and coronal reformats. All CT scans at the facility use one or more dose reduction, viz: automated exposure control, ma/kV adjustment per patient size (including targeted exams where dose is matched to indication, i.e. head), or iterative reconstruction technique. FINDINGS: HEART AND MEDIASTINAL STRUCTURES: Thyroid gland is enlarged. There are bilateral thyroid nodules. There is a 12 mm nodule in the posterior aspect of the right lobe the and 13 mm nodule in the left lobe. No further evaluation suggested this time. No evidence of aortic aneurysm or dissection. No evidence of pulmonary embolus. There is cardiomegaly with multi chamber enlargement. Coronary artery calcifications are present. LUNGS AND PLEURAL SPACES: There are some mild atelectatic changes in the lung bases greatest within the left upper lobe posteriorly. Scattered calcified granulomas are present. There are few non calcified opacities in the right middle lobe with a tree in bud pattern which may be seen with atypical pneumonia. There is some hyperinflation in the lung apices suggesting COPD. No effusions. BONY STRUCTURES: severe right subacromial stenosis with loss of the subacromial space consistent with rotator cuff tear with osteoarthritic changes. Prior kyphoplasty at T8. Wedge compression changes are present involving T8. There is also mild wedge compression change involving T11 with loss of height anteriorly of 30 percent. Compression change also present at L1 which is incompletely imaged. There is loss of height of L1 approximately 40-50 percent. UPPER ABDOMEN: Nonspecific low-density changes are present in the central aspect of the spleen. ADDITIONAL FINDINGS: No other significant abnormalities. IMPRESSION: 1. No evidence of pulmonary embolus. 2. Multi chamber cardiac enlargement with coronary artery calcification. 3. Faint tree in bud pattern in the right middle lobe which may be seen with atypical pneumonia. There are atelectatic changes in the left lower lobe and to lesser degree in the right lower lobe. 4. Suspect COPD with old granulomatous disease right arm Dictated by: Gustavo Matthews MD 09/05/2020 15:26 Gustavo Matthews MD in [facility] 09/05/2020 15:26
--- NOTE | 2020-09-05 09:12 | SW/DCPLANNER ---
Addendum entered by Rocio Lebron 09/08/20 09:44: I have spoke with Marcia from [facility] this morning: patient will discharge back today and COVID swab is NOT needed per Marcia. Original Note: This patient currently resides at [facility]. I have spoke with Marcia this morning from [place] and she has stated that patient is [facility] level of care. I have informed Marcia that CT of chest with be ordered today and if negative patient could discharge back later this afternoon. I will continue to follow up with Marcia. Patient information has been faxed to [facility].
--- NOTE | 2020-09-05 11:42 | PC.NURSE ---
Pt reminded of need for sputum sample. Pt has had no cough noted this shift. Will contact RT to induce sputum
--- NOTE | 2020-09-05 11:42 | PC.NURSE ---
pt given treatment with hypertonic saline. pt uncoopertive and unable to understand procuder and instruction. cup left at bedside.
[2020-09-05 12:00] VITALS: BP 163/73; PULSE 66; RESP 18; TEMP 36.6; O2SAT 95
--- NOTE | 2020-09-05 15:08 | HMH.DCSUM ---
General - General Admission date:: 09/04/20 Discharge date: 09/05/20 HPI HPI: Patient is an 85-year-old white female, resident of [facility] who was admitted through the emergency room for cough and dyspnea. She was reported to have an elevated respiratory rate of 28, her initial labs in the ER were fairly unremarkable, her lactate was negative. Chest x-ray demonstrated bibasilar elective cyst versus infiltrative process. She is admitted for further evaluation and treatment. Patient is somewhat demented, obtaining details of history preceding admission was rather difficult. At the time of her exam she was in no respiratory distress, had no chest pain, was confused but I think this is her baseline dementia. Hospital Course Hospital Course: Laboratory Tests 09/04/20 09/04/20 09/04/20 09:10 09:10 09:10 WBC 9.5 RBC 4.45 Hgb 13.6 Hct 42.6 MCV 95.6 MCH 30.5 MCHC 31.9 RDW 15.1 Plt Count 220 MPV 7.8 Neut % (Auto) 75.4 Lymph % (Auto) 15.1 Keith % (Auto) 4.5 Eos % (Auto) 4.3 Baso % (Auto) 0.7 Neut # (Auto) 7.2 Lymph # (Auto) 1.4 Keith # (Auto) 0.4 Eos # (Auto) 0.4 Baso # (Auto) 0.1 Sodium 143 Potassium 3.7 Chloride 106 Carbon Dioxide 31 H Anion Gap 9.7 BUN 15 Creatinine 0.60 Estimated Creat Clear 39 Estimated GFR 95 Est GFR ( Amer) 115 Glucose 124 H Lactate Calcium 10.0 Total Bilirubin 0.4 AST 26 ALT 19 Alkaline Phosphatase 108 Total Protein 7.5 D Albumin 4.1 Globulin 3.4 H Albumin/Globulin Ratio 1.2 Chlamy pneumoniae PCR Not detected Adenovirus (PCR) Not detected B. pertussis DNA (PCR) Not detected Coronavirus OC43 (PCR) Not detected Coronavirus HKU1 (PCR) Not detected Coronavirus 229E (PCR) Not detected SARS-CoV-2 (PCR) Not detected Coronavirus NL63 (PCR) Not detected Human Metapneumovir PCR Not detected Influenza A (H1) PCR Not detected Influ A (H1N1/09) PCR Not detected Influenza A (H3) PCR Not detected Influenza Type A (PCR) Not detected Influenza Type B (PCR) Not detected M. pneumoniae (PCR) Not detected Parainfluenza 1 (PCR) Not detected Parainfluenza 2 (PCR) Not detected Parainfluenza 3 (PCR) Not detected Parainfluenza 4 (PCR) Not detected RSV (PCR) Not detected Entero/Rhino (PCR) Not detected 09/04/20 09/05/20 09/05/20 09:10 07:10 07:10 WBC 10.3 RBC 4.13 L Hgb 12.5 Hct 39.2 MCV 94.9 MCH 30.3 MCHC 31.9 RDW 15.0 Plt Count 205 MPV 7.7 Neut % (Auto) 71.4 Lymph % (Auto) 17.8 Keith % (Auto) 4.3 Eos % (Auto) 5.8 Baso % (Auto) 0.8 Neut # (Auto) 7.3 Lymph # (Auto) 1.8 Keith # (Auto) 0.4 Eos # (Auto) 0.6 H Baso # (Auto) 0.1 Sodium 142 Potassium 3.6 Chloride 107 Carbon Dioxide 30 Anion Gap 8.6 BUN 10 D Creatinine 0.50 L Estimated Creat Clear 35 Estimated GFR 118 Est GFR ( Amer) 142 D Glucose 105 H Lactate 1.8 Calcium 9.5 Total Bilirubin 0.6 AST 28 ALT 14 D Alkaline Phosphatase 98 Total Protein 7.2 Albumin 3.8 Globulin 3.4 H Albumin/Globulin Ratio 1.1 Chlamy pneumoniae PCR Adenovirus (PCR) B. pertussis DNA (PCR) Coronavirus OC43 (PCR) Coronavirus HKU1 (PCR) Coronavirus 229E (PCR) SARS-CoV-2 (PCR) Coronavirus NL63 (PCR) Human Metapneumovir PCR Influenza A (H1) PCR Influ A (H1N1/09) PCR Influenza A (H3) PCR Influenza Type A (PCR) Influenza Type B (PCR) M. pneumoniae (PCR) Parainfluenza 1 (PCR) Parainfluenza 2 (PCR) Parainfluenza 3 (PCR) Parainfluenza 4 (PCR) RSV (PCR) Entero/Rhino (PCR) chest xray:FINDINGS: The cardiomediastinal silhouette and pulmonary vascularity are within normal limits. Atelectasis or infiltrate in the right lung base unchanged. Old granul
[2020-09-05 15:10] VITALS: BMI 21.1
--- NOTE | 2020-09-05 15:20 | HMH.ACPN2 ---
Internal Medicine - PN: Subj *Date: 09/05/20 *Time: 08:10 Interval history: pt sitting up in bed states feeling better. Exam Vital signs and Labs for Last 24 Hours: Temp Pulse Resp BP Pulse Ox 97.9 F 66 18 163/73 H 95 09/05/20 12:00 09/05/20 12:00 09/05/20 12:00 09/05/20 12:00 09/05/20 12:00 Laboratory Results - last 24 hr 09/05/20 07:10: WBC 10.3, RBC 4.13 L, Hgb 12.5, Hct 39.2, MCV 94.9, MCH 30.3, MCHC 31.9, RDW 15.0, Plt Count 205, MPV 7.7, Neut % (Auto) 71.4, Lymph % (Auto) 17.8, [place] % (Auto) 4.3, Eos % (Auto) 5.8, Baso % (Auto) 0.8, Neut # (Auto) 7.3, Lymph # (Auto) 1.8, [place] # (Auto) 0.4, Eos # (Auto) 0.6 H, Baso # (Auto) 0.1 09/05/20 07:10: Sodium 142, Potassium 3.6, Chloride 107, Carbon Dioxide 30, Anion Gap 8.6, BUN 10 D, Creatinine 0.50 L, Estimated Creat Clear 35, Estimated GFR 118, Est GFR ( Amer) 142 D, Glucose 105 H, Calcium 9.5, Total Bilirubin 0.6, AST 28, ALT 14 D, Alkaline Phosphatase 98, Total Protein 7.2, Albumin 3.8, Globulin 3.4 H, Albumin/Globulin Ratio 1.1 I & O for Last 24 hours: Intake & Output 09/03/20 09/04/20 09/05/20 09/06/20 11:59 11:59 11:59 11:59 Intake Total 1297 / 1297 Balance 1297 / 1297 Weight 130 lb 115 lb 1 oz - Constitutional no acute distress - *Routine HEENT Exam Head: Present: normocephalic Eye: Present: PERRL ENT: Present: mucous membranes moist - *Routine Neck Exam Present: supple. Absent: lymphadenopathy - *Routine Respiratory Exam Present: decreased breath sounds, CTA bilaterally - *Routine Cardiovascular Exam Present: RRR - *Routine Abdominal Exam Present: soft, normoactive bowel sounds. Absent: tenderness - *Routine Extremities Exam Present: normal capillary refill. Absent: cyanosis, clubbing, edema - *Routine Skin Exam Present: warm. Absent: rash - *Routine Neurological Exam Present: alert, oriented X3 - Routine Psychiatric Exam Present: normal affect Assessment and Plan (1) Hypoxia Status: Acute Category: Medical Code(s): R09.02 - Hypoxemia (2) Pneumonia Status: Acute Qualifiers: Pneumonia type: due to unspecified organism Laterality: bilateral Lung location: lower lobe of lung Qualified Code(s): J18.9 - Pneumonia, unspecified organism Category: Medical Code(s): J18.9 - Pneumonia, unspecified organism (3) Altered mental status Status: Chronic Qualifiers: Altered mental status type: disorientation Qualified Code(s): R41.0 - Disorientation, unspecified Category: Medical Code(s): R41.82 - Altered mental status, unspecified (4) Muscle weakness (generalized) Status: Chronic Category: Medical Code(s): M62.81 - Muscle weakness (generalized) (5) Dementia Status: Chronic Qualifiers: Dementia type: unspecified type Dementia behavioral disturbance: without behavioral disturbance Qualified Code(s): F03.90 - Unspecified dementia without behavioral disturbance Category: Medical Code(s): F03.90 - Unspecified dementia without behavioral disturbance (6) History of vertebral compression fracture Status: Chronic Category: Medical Code(s): Z87.81 - Personal history of (healed) traumatic fracture - Assessment and plan all Dx Assessment and Plan for all problems:: rounded with dr bush orders per dr tompkins start steroids and duonebs
--- NOTE | 2020-09-05 15:34 | DIET.NUTRFU ---
Pt with severe protein calorie malnutrition related to dementia with recent loss of 8% body weight past 2mo. Per [place] she has been not eating much for as long as she has been there. She is on soft mechanical diet with honey thickened liquids at their facility, discussed this with POT PUSHER and diet was altered at this time for pt's safety. POT PUSHER to monitor and alter as indicated. BID supplements on diet order. Pt requires assistance tray set up and redirection/cueing/encouragement during mealtimes. Pt may have any replacement meals/snacks/supplements by request/RN offer, observing aspiration precautions.
[2020-09-05 16:00] VITALS: BP 135/65; PULSE 85; RESP 20; TEMP 36.8; O2SAT 95
[2020-09-05 18:15] VITALS: PULSE 80; O2SAT 91
--- NOTE | 2020-09-05 18:15 | PC.NURSE ---
Pt has been oriented to self this shift. Pt has tolerated RA the majority of this shift w/ o2 sats >90%. NO cough noted, specimen cup is at bedside. Pt has tried to get out of chair multiple times this shift, d/t unsteady gait, pull alarm was placed on pt for safety. Pt has removed PIV x2 this shift, new PIV in LAC placed this shift. No other acute changes or complaints at this time.
[2020-09-05 20:00] VITALS: BP 140/72; PULSE 73; RESP 18; TEMP 36.4; O2SAT 93
--- NOTE | 2020-09-05 22:33 | PC.NURSE ---
Pt has been agitated. Has been yelling at staff and refusing care. She continues to try to get OOB. notified. Haldol 4 mg IM ordered and administered. Pt continues to not cooperate with staff but has calmed some at this time. Safety measures in place. Will continue to monitor.
--- NOTE | 2020-09-06 03:54 | PC.NURSE ---
Pt is currently resting well. Has not c/o any discomfort or soa. SHe has remained on RA. Continues to remain AMS but is no longer trying to climb OOB or display any agitation. VSS. Medications administered per mar. Call light within reach. Safety measures in place. Will continue to monitor.
[2020-09-06 04:00] VITALS: BP 132/66; PULSE 58; RESP 16; TEMP 36.4; O2SAT 95
[2020-09-06 05:00] VITALS: BMI 21.7
[2020-09-06 08:00] VITALS: BP 119/66; PULSE 57; RESP 16; TEMP 36.5; O2SAT 98
--- NOTE | 2020-09-06 08:58 | HMH.ACPN2 ---
Internal Medicine - PN: Subj *Date: 09/07/20 *Time: 07:18 Interval history: off o2 but somnolent - has copd - Exam Vital signs and Labs for Last 24 Hours: Temp Pulse Resp BP Pulse Ox 97.7 F 57 L 16 119/66 98 09/06/20 08:00 09/06/20 08:00 09/06/20 08:00 09/06/20 08:00 09/06/20 08:00 I & O for Last 24 hours: Intake & Output 09/03/20 09/04/20 09/05/20 09/06/20 11:59 11:59 11:59 11:59 Intake Total 1297 / 1297 240 / 240 Balance 1297 / 1297 240 / 240 Weight 130 lb 115 lb 1 oz 118 lb - Constitutional no acute distress, thin - *Routine HEENT Exam Head: Present: normocephalic Eye: Present: EOMI, PERRL ENT: Present: mucous membranes dry - *Routine Neck Exam Absent: JVD - *Routine Respiratory Exam Present: CTA bilaterally - *Routine Cardiovascular Exam Present: RRR, murmur - *Routine Abdominal Exam Present: soft - *Routine Extremities Exam Absent: calf tenderness - *Routine Skin Exam Present: intact - *Routine Neurological Exam somolent w/o focal changes - Routine Psychiatric Exam Present: unable to assess Assessment and Plan (1) Hypoxia Status: Acute Category: Medical Code(s): R09.02 - Hypoxemia (2) Pneumonia Status: Acute Qualifiers: Pneumonia type: due to unspecified organism Laterality: bilateral Lung location: lower lobe of lung Qualified Code(s): J18.9 - Pneumonia, unspecified organism Category: Medical Code(s): J18.9 - Pneumonia, unspecified organism (3) Altered mental status Status: Chronic Qualifiers: Altered mental status type: disorientation Qualified Code(s): R41.0 - Disorientation, unspecified Category: Medical Code(s): R41.82 - Altered mental status, unspecified (4) Muscle weakness (generalized) Status: Chronic Category: Medical Code(s): M62.81 - Muscle weakness (generalized) (5) Dementia Status: Chronic Qualifiers: Dementia type: unspecified type Dementia behavioral disturbance: without behavioral disturbance Qualified Code(s): F03.90 - Unspecified dementia without behavioral disturbance Category: Medical Code(s): F03.90 - Unspecified dementia without behavioral disturbance (6) History of vertebral compression fracture Status: Chronic Category: Medical Code(s): Z87.81 - Personal history of (healed) traumatic fracture (7) COPD (chronic obstructive pulmonary disease) with acute bronchitis Status: Acute Category: Medical Code(s): J44.0 - Chronic obstructive pulmonary disease with (acute) lower respiratory infection; J20.9 - Acute bronchitis, unspecified
[2020-09-06 16:00] VITALS: BP 139/74; PULSE 58; RESP 15; TEMP 36.3; O2SAT 96
[2020-09-06 17:57] LABS: Basophils % 0.2 % (0.1-2.0); Eosinophils # 0.1 K/mm3 (0.0-0.4); Eosinophils % 0.5 % (0.1-12.0); Hematocrit 37.1 % (37.0-47.0); Hemoglobin 11.7 g/dL (12.2-16.2); Mean Corpuscular HGB Conc 31.6 g/dL (31.8-35.4); Mean Corpuscular Hemoglobin 30.1 pg (27.0-31.2); Mean Corpuscular Volume 95.3 fl (81-99); Mean Platelet Volume 7.7 fl (7.4-10.4); Monocytes # 0.3 K/mm3 (0.1-1.0); Neutrophils # 8.8 K/mm3 (1.8-7.8); Neutrophils % 86.3 % (37.0-80.0); Platelet Count 196 K/mm3 (142-424); Red Cell Distribution Width 15.2 % (11.5-17.5); White Blood Count 10.2 K/mm3 (4.8-10.8)
[2020-09-06 17:58] LABS: MANUAL DIFFERENTIAL MANUAL DIFFERENTIAL (MANUAL DIFF)
--- NOTE | 2020-09-06 17:58 | PC.NURSE ---
pt has slept most of shift. pt awakens to her name. staff asked pt to eat each meal, she states not right now was able to get pt to drink some water this shift. vss. safety in place. will cont. to monitor.
[2020-09-06 18:01] LABS: Chloride 109 mmol/L (98-107); Potassium 4.1 mmoL/L (3.5-5.1); Sodium 140 mmol/L (136-145)
[2020-09-06 18:04] LABS: Anion Gap 8.1 mEq/L (5-15); Blood Urea Nitrogen 19 mg/dl (7-17); Calcium 9.3 mg/dl (8.4-10.2); Carbon Dioxide 27 mmol/L (22.0-30.0); Creatinine Clearance Estimated 35 mL/min (50-200); Estimated Glomerular Filt Rate 118 ml/min (>60); GFR (African American) 142 ML/MIN (>60); Glucose 141 mg/dl (74-100)
[2020-09-06 18:11] LABS: Eosinophils % 1 % (0-3); Lymphocytes % 5 % (10-50); Monocytes % 2 % (2-9); Neutrophils % 92 % (42-76); Platelet Estimate Normal; RBC Morphology Normal; Total Cells Counted 100
[2020-09-06 18:48] VITALS: PULSE 72; PULSE 77
[2020-09-06 20:00] VITALS: BP 111/41; PULSE 85; RESP 16; TEMP 36.6; O2SAT 91
[2020-09-07] VITALS (10 sets, daily range): BP systolic 106–158; BP diastolic 51–82; PULSE 72–118; RESP 14–18; TEMP 36.8–36.9; O2SAT 91–95; BMI 21.4
--- NOTE | 2020-09-07 04:23 | PC.NURSE ---
pt has rested most of the shift, has been pleasant when awake, no complaints of SOA or chest pain, remains on room air with sats 91-95%, lungs CTA, bed safety remains on
--- NOTE | 2020-09-07 04:56 | PC.NURSE ---
room air sat of 83%, pt has brief episodes of apnea and has dropped as low as 61% on room air, O2 returned to 2L and sats now sustaining 90-94%
[2020-09-07 08:39] LABS: Basophils % 0.3 % (0.1-2.0); Eosinophils # 0.2 K/mm3 (0.0-0.4); Eosinophils % 2.1 % (0.1-12.0); Hematocrit 36.3 % (37.0-47.0); Hemoglobin 11.9 g/dL (12.2-16.2); Lymphocytes % 10.2 % (10-50); Mean Corpuscular HGB Conc 32.8 g/dL (31.8-35.4); Mean Corpuscular Hemoglobin 31.4 pg (27.0-31.2); Mean Corpuscular Volume 95.7 fl (81-99); Mean Platelet Volume 8.8 fl (7.4-10.4); Monocytes # 0.6 K/mm3 (0.1-1.0); Monocytes % 5.9 % (1.7-9.3); Neutrophils # 8.1 K/mm3 (1.8-7.8); Neutrophils % 81.6 % (37.0-80.0); Platelet Count 221 K/mm3 (142-424); Red Cell Distribution Width 15.1 % (11.5-17.5)
[2020-09-07 08:49] LABS: Anion Gap 10.1 mEq/L (5-15); Blood Urea Nitrogen 22 mg/dl (7-17); Calcium 9.1 mg/dl (8.4-10.2); Carbon Dioxide 25 mmol/L (22.0-30.0); Chloride 111 mmol/L (98-107); Creatinine Clearance Estimated 35 mL/min (50-200); Estimated Glomerular Filt Rate 80 ml/min (>60); GFR (African American) 96 ML/MIN (>60); Glucose 120 mg/dl (74-100); Potassium 4.1 mmoL/L (3.5-5.1); Sodium 142 mmol/L (136-145)
--- NOTE | 2020-09-07 09:29 | HMH.ACPN2 ---
Internal Medicine - PN: Subj *Date: 09/08/20 *Time: 05:25 Interval history: doing better - will have oob today slow improvement Exam Vital signs and Labs for Last 24 Hours: Temp Pulse Resp BP Pulse Ox 98.2 F 73 16 127/62 93 L 09/07/20 07:57 09/07/20 07:57 09/07/20 07:57 09/07/20 07:57 09/07/20 07:57 Laboratory Results - last 24 hr 09/06/20 17:50: WBC 10.2, RBC 3.90 L, Hgb 11.7 L, Hct 37.1, MCV 95.3, MCH 30.1, MCHC 31.6 L, RDW 15.2, Plt Count 196, MPV 7.7, Neut % (Auto) 86.3 H, Lymph % (Auto) 10.0, [place] % (Auto) 3.0, Eos % (Auto) 0.5, Baso % (Auto) 0.2, Neut # (Auto) 8.8 H, Lymph # (Auto) 1.0, [place] # (Auto) 0.3, Eos # (Auto) 0.1, Baso # (Auto) 0.0, Total Counted 100, Neutrophils % (Manual) 92 H, Lymphocytes % (Manual) 5 L, Monocytes % (Manual) 2, Eosinophils % (Manual) 1, Platelet Estimate Normal, RBC Morphology Normal 09/06/20 17:50: Sodium 140, Potassium 4.1, Chloride 109 H, Carbon Dioxide 27, Anion Gap 8.1, BUN 19 H D, Creatinine 0.50 L, Estimated Creat Clear 35, Estimated GFR 118, Est GFR ( Amer) 142, Glucose 141 H, Calcium 9.3 09/07/20 08:28: WBC 10.0, RBC 3.80 L, Hgb 11.9 L, Hct 36.3 L, MCV 95.7, MCH 31.4 H, MCHC 32.8, RDW 15.1, Plt Count 221, MPV 8.8, Neut % (Auto) 81.6 H, Lymph % (Auto) 10.2, [place] % (Auto) 5.9, Eos % (Auto) 2.1, Baso % (Auto) 0.3, Neut # (Auto) 8.1 H, Lymph # (Auto) 1.0, [place] # (Auto) 0.6, Eos # (Auto) 0.2, Baso # (Auto) 0.0 09/07/20 08:28: Sodium 142, Potassium 4.1, Chloride 111 H, Carbon Dioxide 25, Anion Gap 10.1, BUN 22 H, Creatinine 0.70 D, Estimated Creat Clear 35, Estimated GFR 80, Est GFR ( Amer) 96 D, Glucose 120 H, Calcium 9.1 I & O for Last 24 hours: Intake & Output 09/04/20 09/05/20 09/06/20 09/07/20 11:59 11:59 11:59 11:59 Intake Total 1297 / 1297 240 / 240 874 / 874 Balance 1297 / 1297 240 / 240 874 / 874 Weight 130 lb 115 lb 1 oz 118 lb 116 lb 8 oz Microbiology Reports for the Last 24 Hours: Microbiology 09/04/20 09:10 Blood Blood Culture - Preliminary NO GROWTH AFTER 48 HOURS 09/04/20 09:10 Blood Blood Culture - Preliminary NO GROWTH AFTER 48 HOURS - Constitutional no acute distress, thin - *Routine HEENT Exam Head: Present: normocephalic Eye: Present: EOMI, PERRL ENT: Present: mucous membranes dry - *Routine Neck Exam Present: supple. Absent: JVD - *Routine Respiratory Exam Present: CTA bilaterally - *Routine Cardiovascular Exam Present: RRR - *Routine Abdominal Exam Present: soft - *Routine Extremities Exam Absent: calf tenderness - *Routine Skin Exam Present: intact - *Routine Neurological Exam Present: alert, CN II-XII intact. Absent: motor deficit - Routine Psychiatric Exam Present: cooperative. Absent: good insight, good judgment Assessment and Plan (1) Hypoxia Status: Acute Category: Medical Code(s): R09.02 - Hypoxemia (2) Pneumonia Status: Acute Qualifiers: Pneumonia type: due to unspecified organism Laterality: bilateral Lung location: lower lobe of lung Qualified Code(s): J18.9 - Pneumonia, unspecified organism Category: Medical Code(s): J18.9 - Pneumonia, unspecified organism (3) Altered mental status Status: Chronic Qualifiers: Altered mental status type: disorientation Qualified Code(s): R41.0 - Disorientation, unspecified Category: Medical Code(s): R41.82 - Altered mental status, unspecified (4) Muscle weakness (generalized) Status: Chronic Category: Medical Code(s): M62.81 - Muscle weakness (generalized) (5) Dementia Status: Chronic Qualifiers: Dementia type: unspecified type Dementia behavioral disturbance: without behavioral disturbance Qualified Code(s): F03.90 - Unspecified dementia without behavioral disturbance Category: Medical Code(s): F03.90 - Unspecified dementia without behavioral disturbance (6) History of vertebral compression fracture Status:
--- NOTE | 2020-09-07 10:05 | HMH.ACPN ---
Internal Medicine - PN: Subj *Date: 09/07/20 *Time: 10:05 Exam Vital signs and Labs for Last 24 Hours: Temp Pulse Resp BP Pulse Ox 98.2 F 73 16 127/62 93 L 09/07/20 07:57 09/07/20 07:57 09/07/20 07:57 09/07/20 07:57 09/07/20 07:57 Laboratory Results - last 24 hr 09/06/20 17:50: WBC 10.2, RBC 3.90 L, Hgb 11.7 L, Hct 37.1, MCV 95.3, MCH 30.1, MCHC 31.6 L, RDW 15.2, Plt Count 196, MPV 7.7, Neut % (Auto) 86.3 H, Lymph % (Auto) 10.0, [place] % (Auto) 3.0, Eos % (Auto) 0.5, Baso % (Auto) 0.2, Neut # (Auto) 8.8 H, Lymph # (Auto) 1.0, [place] # (Auto) 0.3, Eos # (Auto) 0.1, Baso # (Auto) 0.0, Total Counted 100, Neutrophils % (Manual) 92 H, Lymphocytes % (Manual) 5 L, Monocytes % (Manual) 2, Eosinophils % (Manual) 1, Platelet Estimate Normal, RBC Morphology Normal 09/06/20 17:50: Sodium 140, Potassium 4.1, Chloride 109 H, Carbon Dioxide 27, Anion Gap 8.1, BUN 19 H D, Creatinine 0.50 L, Estimated Creat Clear 35, Estimated GFR 118, Est GFR ( Amer) 142, Glucose 141 H, Calcium 9.3 09/07/20 08:28: WBC 10.0, RBC 3.80 L, Hgb 11.9 L, Hct 36.3 L, MCV 95.7, MCH 31.4 H, MCHC 32.8, RDW 15.1, Plt Count 221, MPV 8.8, Neut % (Auto) 81.6 H, Lymph % (Auto) 10.2, [place] % (Auto) 5.9, Eos % (Auto) 2.1, Baso % (Auto) 0.3, Neut # (Auto) 8.1 H, Lymph # (Auto) 1.0, [place] # (Auto) 0.6, Eos # (Auto) 0.2, Baso # (Auto) 0.0 09/07/20 08:28: Sodium 142, Potassium 4.1, Chloride 111 H, Carbon Dioxide 25, Anion Gap 10.1, BUN 22 H, Creatinine 0.70 D, Estimated Creat Clear 35, Estimated GFR 80, Est GFR ( Amer) 96 D, Glucose 120 H, Calcium 9.1 I & O for Last 24 hours: Intake & Output 09/04/20 09/05/20 09/06/20 09/07/20 23:59 23:59 23:59 23:59 Intake Total 100 / 100 1437 / 1437 0 / 0 874 / 874 Balance 100 / 100 1437 / 1437 0 / 0 874 / 874 Weight 52.22 kg 52 kg 53.524 kg 52.844 kg Microbiology Reports for the Last 24 Hours: Microbiology 09/04/20 09:10 Blood Blood Culture - Preliminary NO GROWTH AFTER 48 HOURS 09/04/20 09:10 Blood Blood Culture - Preliminary NO GROWTH AFTER 48 HOURS Assessment and Plan (1) Hypoxia Status: Acute Category: Medical Code(s): R09.02 - Hypoxemia (2) Pneumonia Status: Acute Qualifiers: Pneumonia type: due to unspecified organism Laterality: bilateral Lung location: lower lobe of lung Qualified Code(s): J18.9 - Pneumonia, unspecified organism Category: Medical Code(s): J18.9 - Pneumonia, unspecified organism (3) Altered mental status Status: Chronic Qualifiers: Altered mental status type: disorientation Qualified Code(s): R41.0 - Disorientation, unspecified Category: Medical Code(s): R41.82 - Altered mental status, unspecified (4) Muscle weakness (generalized) Status: Chronic Category: Medical Code(s): M62.81 - Muscle weakness (generalized) (5) Dementia Status: Chronic Qualifiers: Dementia type: unspecified type Dementia behavioral disturbance: without behavioral disturbance Qualified Code(s): F03.90 - Unspecified dementia without behavioral disturbance Category: Medical Code(s): F03.90 - Unspecified dementia without behavioral disturbance (6) History of vertebral compression fracture Status: Chronic Category: Medical Code(s): Z87.81 - Personal history of (healed) traumatic fracture (7) COPD (chronic obstructive pulmonary disease) with acute bronchitis Status: Acute Category: Medical Code(s): J44.0 - Chronic obstructive pulmonary disease with (acute) lower respiratory infection; J20.9 - Acute bronchitis, unspecified The patient's infection will respond to the chosen ABx?: Yes Is the patient receiving the right drug, dose, and route?: Yes Could a more targeted ABx be ordered?: No
--- NOTE | 2020-09-07 18:21 | PC.NURSE ---
PT IS MUCH MORE ALERT AND TALKATIVE TODAY. SHE IS CALM AND COOPERATIVE WITH CARE. PT ATE 100% OF HER LUNCH AND SUPPER TRAY. SHE USES THE BRIEF, WHICH HAS BEEN CHANGED MULTIPLE TIMES TODAY. PT HAS NOT C/O ANY PAIN, N/V/D, OR SOB. SAFETY IN PLACE, CALL [facility] WITHIN REACH. VSS. WILL CONT. TO MONITOR.
--- NOTE | 2020-09-07 18:24 | PC.NURSE ---
PT IS MUCH MORE ALERT AND TALKATIVE TODAY. SHE IS CALM AND COOPERATIVE WITH CARE. PT ATE 100% OF HER LUNCH AND SUPPER TRAY. SHE USES THE BRIEF, WHICH HAS BEEN CHANGED MULTIPLE TIMES TODAY. PT HAS NOT C/O ANY PAIN, N/V/D, OR SOB. PT TURNED Q2HR/WHEN ALLOWED. SAFETY IN PLACE, CALL [facility] WITHIN REACH. VSS. WILL CONT. TO MONITOR.
[2020-09-08] VITALS: BP 126/56; PULSE 75; RESP 16; TEMP 36.9; O2SAT 93
[2020-09-08 03:06] VITALS: BP 159/71; PULSE 91; RESP 16; TEMP 36.5; O2SAT 93
[2020-09-08 05:08] VITALS: BMI 21.7
[2020-09-08 06:50] LABS: Basophils % 0.2 % (0.1-2.0); Eosinophils % 0.4 % (0.1-12.0); Hematocrit 36.1 % (37.0-47.0); Hemoglobin 11.5 g/dL (12.2-16.2); Lymphocytes # 0.9 K/mm3 (0.7-4.5); Lymphocytes % 8.9 % (10-50); Mean Corpuscular HGB Conc 31.8 g/dL (31.8-35.4); Mean Corpuscular Hemoglobin 30.4 pg (27.0-31.2); Mean Corpuscular Volume 95.7 fl (81-99); Mean Platelet Volume 8.1 fl (7.4-10.4); Monocytes # 0.6 K/mm3 (0.1-1.0); Monocytes % 6.1 % (1.7-9.3); Neutrophils # 8.3 K/mm3 (1.8-7.8); Neutrophils % 84.5 % (37.0-80.0); Platelet Count 204 K/mm3 (142-424); Red Blood Count 3.77 M/mm3 (4.20-5.40); Red Cell Distribution Width 15.2 % (11.5-17.5); White Blood Count 9.8 K/mm3 (4.8-10.8)
[2020-09-08 06:55] VITALS: PULSE 88; PULSE 90; O2SAT 94
--- NOTE | 2020-09-08 07:01 | PC.NURSE ---
pt has had a good night, has rested well t/o shift, was cooperative when awake, remains on room air with O2 sats 92-93%, no complaints of SOA or chest pain, bed safety remains on
[2020-09-08 07:08] LABS: Anion Gap 12.8 mEq/L (5-15); Blood Urea Nitrogen 25 mg/dl (7-17); Carbon Dioxide 23 mmol/L (22.0-30.0); Chloride 112 mmol/L (98-107); Creatinine Clearance Estimated 35 mL/min (50-200); Estimated Glomerular Filt Rate 95 ml/min (>60); GFR (African American) 115 ML/MIN (>60); Glucose 165 mg/dl (74-100); Potassium 3.8 mmoL/L (3.5-5.1); Sodium 144 mmol/L (136-145)
[2020-09-08 08:00] VITALS: BP 158/79; PULSE 87; RESP 16; TEMP 36.8; O2SAT 93
--- NOTE | 2020-09-08 10:43 | PC.NURSE ---
Pt did refuse to go down for Modified barium swallow. Did make E ELLA Euceda aware and she stated they would do at [facility].
--- NOTE | 2020-09-08 10:47 | PC.NURSE ---
Called report to Vanessa at [facility].
== END 2020-09-08 11:30 ==
LOC: ER 11:31 → 2ND 13:11
PROVIDERS: Nurse Practitioner Family; Admitting Provider Family Medicine; Emergency Provider Emergency Medicine; PCP Emergency Medicine; Visit Provider Emergency Medicine
DX: J18.9 Pneumonia, unspecified organism (principal); I10 Essential (primary) hypertension; Z79.899 Other long term (current) drug therapy; J44.9 Chronic obstructive pulmonary disease, unspecified; F03.90 Unspecified dementia, unspecified severity, without behavioral disturbance, psychotic disturbance, mood disturbance, and anxiety; Z88.5 Allergy status to narcotic agent
CPT/HCPCS: 36415; 71045; 71275; 80048; 80053; 83605; 85007; 85025; 87040; 87581; 87633; 87798; 92610; 94640; 96365; 96367; 99284; G0378; J1956; Q9967

== ENCOUNTER → 2021-01-13 12:35 | Outpatient (CLI) | payer MEDICARE, MEDICAID, SELFPAY ==
--- NOTE | 2021-01-13 13:06 | FL_ITS ---
PROCEDURE: FL BARIUM SWALLOW MODIFIED CLINICAL INDICATION: DYSPHAGIA COMPARISON: No exams were available for comparison TECHNIQUE: Patient administered varying consistencies of barium contrast, while viewed in lateral position under real-time fluoroscopy with cine recording. FLUOROSCOPY TIME:2 minutes and 31 seconds. The study was performed in conjunction with speech pathologist. Please see that report & recommendations. FINDINGS: Patient was given varying consistencies of barium. There is minimal aspiration with thin liquids via cup. Other consistencies were swallowed without difficulty. IMPRESSION: Minimal aspiration with thin liquids Please see speech pathologist report and recommendations. Dictated by: Gustavo Matthews MD 01/13/2021 17:39 Gustavo Matthews MD in [place] 01/13/2021 17:39
--- NOTE | 2021-01-13 14:19 | HMH.SLMBS2 ---
Speech & Language Evaluation Speech/Language Mod Barium Swallow Start: 01/13/21 14:00 Freq: once Status: Complete Protocol: Document 01/13/21 14:00 JANNETTE (Rec: 01/13/21 14:19 JANNETTE [id number]) General Information General Current Food Consistancy Pureed,Honey Liquids Dentition Poor Dentition Comment: Front teeth only on upper and lower Oxygen Status Room Air Facial Symmetry Symmetrical Patient Orientation Person,Place Ability to Follow Directions Good Communication Ability Mild Impairment MBS Recommendations Diet Dietary Recommendations Dysphagia Mechanical Soft, [place] Liquids Treatment/Strategies Strategy/Precaution Recommend Sitting Upright (90 deg),No Straw,Small Bites and Sips, Alternate Liquids/Solids Mod Barium Swallow Impressions Summary and Impressions Oral Phase Impression Minimal Impairment Oral Phase Summary Ms. eSaman was given the following consistencies: honey , nectar, thins via straw and open cup, pudding, pureed, mechanical soft, and regular. Ms. Seaman did exhibit decreased mastication time with mechanical soft and regular. Pharyngeal Phase Impression Mild Impairment Pharyngeal Phase Summary Ms. Seaman exhibited minimal aspiration with thin liquids via open cup. She did cough after aspiration. She had vallecular residue with mechanical soft however it cleared with a dry swallow. At this time, it is recommended that Ms. Seaman be placed on mechanical soft diet with ground meats with gravy/sauce with nectar thick liquids. ST to follow up at SNF. Speech/Language MBS Assessment/Goals/Plan Assessment Date of Evaluation: 01/13/21 Evaluation Type Initial Certification Assessment/Problems Dysphagia Does Patient Qualify for Service No Qualify/Failure Comment Patient will be seen at SNF. Plan Pt/Guardian verbally ack understanding Yes: Certified Drug Counselor and RESIDENTIAL CAREGIVER of dx/prognosis/goals informed G -code Required No Mod Barium Swallow Setup Exam Setup Radiologist Gustavo Matthews Level of
== END ==
PROVIDERS: PCP Emergency Medicine; Visit Provider Emergency Medicine
DX: R13.10 Dysphagia, unspecified (principal)
CPT/HCPCS: 70371; 92611

== ENCOUNTER 2021-04-14 19:17 | Emergency (ER) | payer MEDICARE, MEDICAID, SELFPAY ==
[2021-04-14 19:09] VITALS: BP 186/88; PULSE 74; RESP 16; TEMP 36.7; O2SAT 98; BMI 20.5
--- NOTE | 2021-04-14 19:36 | XR_ITS ---
PROCEDURE INFORMATION: Exam: XR Pelvis Exam date and time: 04/14/2021 7:36 PM Age: 86 years old Clinical indication: Injury or trauma; Fall; Blunt trauma (contusions or hematomas); Bilateral; Pelvic region TECHNIQUE: Imaging protocol: XR pelvis. Views: 1 or 2 view. COMPARISON: CR XR PELVIS 1-2V 08/20/2020 11:04 PM FINDINGS: Bones/joints: Degenerative changes of the lumbosacral spine. No acute fracture. Soft tissues: Unremarkable. IMPRESSION: No acute findings.
--- NOTE | 2021-04-14 19:36 | CT_ITS ---
PROCEDURE INFORMATION: Exam: CT Cervical Spine Without Contrast Exam date and time: 04/14/2021 7:36 PM Age: 86 years old Clinical indication: Injury or trauma; Fall; Blunt trauma TECHNIQUE: Imaging protocol: Computed tomography images of the cervical spine without contrast. Radiation optimization: All CT scans at this facility use at least one of these dose optimization techniques: automated exposure control; mA and/or kV adjustment per patient size (includes targeted exams where dose is matched to clinical indication); or iterative reconstruction. COMPARISON: CT CERVICAL SPINE WO [facility] 08/20/2020 10:57 PM FINDINGS: Bones/joints: Grade 1 degenerative anterolisthesis of C2 on C3. No acute fracture. Degenerative changes of the temporomandibular joints. Discs/Spinal canal/Neural foramina: Moderate degenerative changes of the atlantoaxial articulation. Moderate multilevel degenerative disc disease, manifest by disc space narrowing and osteophyte formation. Multilevel bilateral facet and uncovertebral arthropathy. Bilateral C4-C5 and bilateral C5-C6 neural foraminal narrowing. Lymph nodes: Calcified left hilar lymph nodes, compatible with prior granulomatous disease. Lungs: Calcified granuloma within the left upper lobe. Vasculature: Atherosclerotic vascular disease. Soft tissues: Normal. IMPRESSION: No acute fracture.
--- NOTE | 2021-04-14 19:36 | CT_ITS ---
PROCEDURE INFORMATION: Exam: CT Head Without Contrast Exam date and time: 04/14/2021 7:36 PM Age: 86 years old Clinical indication: Injury or trauma; Fall; Blunt trauma (contusions or hematomas) TECHNIQUE: Imaging protocol: Computed tomography of the head without contrast. Radiation optimization: All CT scans at this facility use at least one of these dose optimization techniques: automated exposure control; mA and/or kV adjustment per patient size (includes targeted exams where dose is matched to clinical indication); or iterative reconstruction. COMPARISON: CT HEAD/BRAIN WO CON 08/20/2020 10:54 PM FINDINGS: Brain: Periventricular and subcortical white matter areas of hypoattenuation, likely chronic small vessel ischemic change, demyelination, or gliosis. Old lacunar infarctions within the left anterior periventricular white matter and within the right anterior basal ganglia. No mass, hemorrhage, or acute infarction. Cerebral ventricles: No ventriculomegaly. Paranasal sinuses: Visualized sinuses are unremarkable. No fluid levels. Mastoid air cells: Normal as visualized. Orbital cavity: Bilateral scleral senile plaques. Vasculature: Atherosclerotic vascular disease. Bones/joints: Normal. Soft tissues: Unremarkable. IMPRESSION: No acute intracranial abnormality.
--- NOTE | 2021-04-14 19:36 | XR_ITS ---
PROCEDURE INFORMATION: Exam: XR Chest Exam date and time: 04/14/2021 7:36 PM Age: 86 years old Clinical indication: Injury or trauma; Fall; Blunt trauma (contusions or hematomas) TECHNIQUE: Imaging protocol: XR of the chest. Views: 1 view. COMPARISON: CR XR CHEST PORTABLE 09/05/2020 5:47 AM FINDINGS: Lungs: Multiple granulomas appear grossly stable when compared to prior examination. No lobar consolidation. Pleural spaces: No pneumothorax. Heart/Mediastinum: No cardiomegaly. Bones/joints: Degenerative changes of the shoulders. Chronic narrowing of the right subacromial space. Post kyphoplasty change. IMPRESSION: Chronic changes without acute process.
--- NOTE | 2021-04-14 20:17 | HMH.EDFALL ---
ED Disposition Clinical Impression: Fall Qualifiers: Encounter type: initial encounter Qualified Code(s): W19.XXXA - Unspecified fall, initial encounter Head contusion Qualifiers: Encounter type: initial encounter Contusion of head detail: scalp Qualified Code(s): S00.03XA - Contusion of scalp, initial encounter Facial laceration Qualifiers: Encounter type: initial encounter Qualified Code(s): S01.81XA - Laceration without foreign body of other part of head, initial encounter Disposition: Home, Self-Care Condition on Discharge: Good Instructions: DI for Laceration Repair -- Simple Additional Instructions: sutures out 10 days and recheck if needed Referrals: Provider,Referral, [Primary Care Provider] - - Critical Care Critical Care Time: No Attestation: On 04/14/21, the high probability of a clinically significant, sudden or life threatening deterioration of the following system(s) required my full and direct attention, intervention and personal management. The time I documented below is in addition to time spent performing reported procedures but includes the following listed in this critical care notation. Medical Decision Making - Medical Records Medical records reviewed: Yes: I reviewed the patient's medical records. - Julian Inquiry Pt receiving controlled substance: No Vital Signs: 04/14/21 19:09 Temperature 98.0 F Temperature Source Oral Pulse Rate [Right] 74 Respiratory Rate 16 Blood Pressure [Right Radial Artery] 186/88 H Blood Pressure Mean [Right Radial Artery] 120 02 Sat by Pulse Oximetry 98 - Radiology Data #1 Image(s): Chest, Pelvis Image Reviewed: Yes I have reviewed radiologist's interpretation Preliminary Findings: No Fracture Seen - CT Data CT Scan: Head, C-Spine Time Received: 20:[address] Reviewed: Yes: I have viewed the radiologist's interpretation Preliminary Findings: No Fracture Seen Medical Decision Narrative: no fx and stable exam - laceration repaired Fall HPI - General Chief Complaint: Fall Stated Complaint: fall, l eyebrown lac, no loc Time Seen by Provider: 04/14/21 20:00 Mode of Arrival: EMS Source of Information: Patient, EMS, Medical Record Limitations: Altered Mental Status Description of Symptoms (Recalled from ER Triage Doc. by RN): longterm reports pt fell out of bed. pt has laceration above lt eye - History of Present Illness complaint: fall Onset (ago): hour(s) Fall from: out of bed Fall witnessed: no Place fall occurred: longterm/SNF Loss of consciousness: none Prolonged down time: no Symptoms prior to fall: none Context: history of frequent falls Location of injury: face Severity: moderate Associated symptoms (after fall): denies - Related Data Home Medications Medication Instructions Recorded Confirmed Aspirin 81 mg PO DAILY 06/19/20 09/22/20 Buspirone HCl [Buspar 10mg 10 mg PO BID 06/19/20 09/22/20 tablet] Donepezil HCl [Aricept 10mg 10 mg PO HS 06/19/20 09/22/20 tablet] Duloxetine HCl 30 mg PO DAILY 06/19/20 09/22/20 Memantine HCl [Memantine 10mg 10 mg PO BID 06/19/20 09/22/20 Tablet] Mirtazapine 15 mg PO HS 06/19/20 09/22/20 lisinopriL [Lisinopril 2.5mg Tab] 2.5 mg PO DAILY 06/19/20 09/22/20 Atorvastatin Calcium [Lipitor 10mg 10 mg PO HS 08/20/20 09/22/20 Tablet*] Cyproheptadine HCl 4 mg PO TID 08/20/20 09/22/20 risperiDONE [Risperdal 0.25mg 0.25 mg PO BID 08/20/20 09/22/20 Tablet] Lactulose [Lactulose 20gm/30ml 20 gm PO DAILYP PRN 09/04/20 09/22/20 Oral Soln] Sennosides/Docusate Sodium [Senna 1 each PO BID 09/04/20 09/22/20 Plus 8.6-50 mg Tablet] bisacodyL [Dulcolax 10mg Supp] 10 mg RC DAILYP PRN 09/04/20 09/22/20 Previous Rx's Medication Instructions Recorded levofloxacin 500 mg tablet 500 mg PO 1100 1 Days #1 tab 09/08/20 prednisone 10 mg tablet 10 mg PO DIRECTED 9 Days #21 tab 09/08/20 Allergies Allergy/AdvReac Type Severity Reaction Status Date / T
--- NOTE | 2021-04-14 20:24 | PC.NURSE ---
dr tompkins at bedside suturing.
--- NOTE | 2021-04-14 21:10 | PC.NURSE ---
[facility] aware of transfer back to half-way.
[2021-04-14 21:39] VITALS: BP 167/86; PULSE 85; RESP 18; TEMP 36.6; O2SAT 95
== END 2021-04-14 22:00 | disposition home or self-care (01) ==
PROVIDERS: Emergency Provider Emergency Medicine
DX: S01.81XA Laceration without foreign body of other part of head, initial encounter (principal); W06.XXXA Fall from bed, initial encounter; Y92.122 Bedroom in nursing home as the place of occurrence of the external cause; F41.8 Other specified anxiety disorders; E78.5 Hyperlipidemia, unspecified
CPT/HCPCS: 12011; 70450; 71045; 72125; 72170; 99283

== ENCOUNTER 2021-07-10 15:49 | Emergency (ER) | payer MEDICARE, MEDICAID, SELFPAY ==
[2021-07-10 15:47] VITALS: BP 129/72; PULSE 61; RESP 14; TEMP 37.1; O2SAT 95; BMI 18.1
--- NOTE | 2021-07-10 16:05 | CT_ITS ---
PROCEDURE INFORMATION: Exam: CT Cervical Spine Without Contrast Exam date and time: 07/10/2021 4:05 PM Age: 86 years old Clinical indication: Injury or trauma; Fall; Blunt trauma TECHNIQUE: Imaging protocol: Computed tomography images of the cervical spine without contrast. Radiation optimization: All CT scans at this facility use at least one of these dose optimization techniques: automated exposure control; mA and/or kV adjustment per patient size (includes targeted exams where dose is matched to clinical indication); or iterative reconstruction. COMPARISON: CT CERVICAL SPINE WO CON 04/14/2021 7:46 PM FINDINGS: Bones/joints: No anterior wedging deformity. No acute lucent fracture lines visualized. There is auto fusion of the C2-C3 and C3-C4 facet joints bilaterally. Spondylitic changes are seen at the C4-C5 through C6-C7 levels. Discs/Spinal canal/Neural foramina: No severe central canal or neural foraminal stenosis is demonstrated by CT. Lungs: Calcified granulomata are seen at the lung apices bilaterally. IMPRESSION: 1. No acute cervical spinal injury demonstrated by CT. 2. Degenerative changes of the cervical spine.
--- NOTE | 2021-07-10 16:05 | CT_ITS ---
PROCEDURE INFORMATION: Exam: CT Head Without Contrast Exam date and time: 07/10/2021 4:05 PM Age: 86 years old Clinical indication: Injury or trauma; Fall; Blunt trauma (contusions or hematomas) TECHNIQUE: Imaging protocol: Computed tomography of the head without contrast. Radiation optimization: All CT scans at this facility use at least one of these dose optimization techniques: automated exposure control; mA and/or kV adjustment per patient size (includes targeted exams where dose is matched to clinical indication); or iterative reconstruction. COMPARISON: CT HEAD/BRAIN WO CON 04/14/2021 7:46 PM FINDINGS: Brain: There are global involutional changes of the brain which are in keeping with the patient's age. Periventricular hypodensities are nonspecific but most likely reflect chronic microvascular ischemic disease. Small old lacunar infarcts on the right are stable. There is no acute intracranial hemorrhage or abnormal extra-axial fluid collection identified. There is no intracranial mass effect or shift of midline structures. The davison-white differentiation is preserved throughout. Cerebral ventricles: There is no sulcal or ventricular effacement. The basilar cisterns are open. No hydrocephalus. Paranasal sinuses: Visualized sinuses are unremarkable. No fluid levels. Mastoid air cells: There is mild partial opacification of the left mastoid air cells. Bones/joints: No calvarial fracture or destructive osseous lesions are seen. Soft tissues: Unremarkable. IMPRESSION: 1. No acute intracranial pathology identified by CT. 2. Old lacunar infarcts on the right, stable.
--- NOTE | 2021-07-10 16:05 | XR_ITS ---
PROCEDURE INFORMATION: Exam: XR Left Hip Exam date and time: 07/10/2021 4:05 PM Age: 86 years old Clinical indication: Injury or trauma; Fall; Blunt trauma (contusions or hematomas); Left; Hip TECHNIQUE: Imaging protocol: XR Left hip. Views: 2 or 3 views hip with pelvis when performed. COMPARISON: CR XR PELVIS 1-2V 04/14/2021 7:57 PM FINDINGS: Bones/joints: There is no evidence of acutely displaced fractures. There is no evidence of joint dislocation. No aggressive osseous lesions. Soft tissues: There is no significant soft tissue swelling. Other findings: There are multiple ovoid calcifications projecting over the right upper quadrant, of chronic etiology. IMPRESSION: No acute skeletal pathology.
--- NOTE | 2021-07-10 16:26 | XR_ITS ---
PROCEDURE INFORMATION: Exam: XR Chest Exam date and time: 07/10/2021 4:26 PM Age: 86 years old Clinical indication: Injury or trauma; Fall; Blunt trauma (contusions or hematomas); Additional info: Fall; Dementia TECHNIQUE: Imaging protocol: XR of the chest. Views: 1 view. COMPARISON: CR XR CHEST PORTABLE 04/14/2021 7:57 PM FINDINGS: Airway: Patent Lungs: There are multiple punctate pulmonary parenchymal calcifications, consistent with remote granulomatous organism exposure. 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 No acute interstitial or airspace disease. Pleural spaces: Unremarkable. No pleural effusion. No pneumothorax. Heart/Mediastinum: The heart is mildly enlarged. Vasculature: Calcified aortic knob. Bones/joints: Evidence for chronic right rotator cuff injury. Kyphoplasty changes at a midthoracic vertebra. No acute skeletal abnormality or aggressive osseous lesion. IMPRESSION: No acute thoracic pathology.
--- NOTE | 2021-07-10 17:32 | HMH.EDGENADL ---
ED Disposition Clinical Impression: Head contusion Qualifiers: Encounter type: initial encounter Contusion of head detail: unspecified part of head Qualified Code(s): S00.93XA - Contusion of unspecified part of head, initial encounter Fall Qualifiers: Encounter type: initial encounter Qualified Code(s): W19.XXXA - Unspecified fall, initial encounter Disposition: Xfer Inpatient Rehab Fac Condition on Discharge: Good Instructions: How to Prevent Falls Referrals: Provider,Referral, [Primary Care Provider] - Time of Disposition: 17:38 - Critical Care Critical Care Time: No Attestation: On 07/10/21, the high probability of a clinically significant, sudden or life threatening deterioration of the following system(s) required my full and direct attention, intervention and personal management. The time I documented below is in addition to time spent performing reported procedures but includes the following listed in this critical care notation. Medical Decision Making - Medical Records Medical records reviewed: Yes: I reviewed the patient's medical records. - Julian Inquiry Pt receiving controlled substance: No Vital Signs: 07/10/21 15:47 Temperature 98.7 F Temperature Source Oral Pulse Rate [Right Radial] 61 Respiratory Rate 14 Blood Pressure [Right Arm] 129/72 Blood Pressure Mean [Right Arm] 91 Blood Pressure Source [Right Arm] Automatic Cuff Blood Pressure Position [Right Arm] Sitting 02 Sat by Pulse Oximetry 95 Oxygen Delivery Method Room Air - Lab Data Lab results reviewed: Yes: I reviewed the patient's lab results. Medical Decision Narrative: 86-year-old female who presents to the emergency department with chief complaint of fall. This was witnessed at the intermediate, and staff was concerned that she may have hit her head. Patient also appeared to hit her elbow and back on the ground. On physical exam, patient has absolutely no abnormalities and no signs of trauma. However, given that she is a poor historian, demented, and is not able to provide any kind of history and potentially takes aspirin on a daily basis, we will proceed with a CT head and neck Noncon. We will also obtain x-rays of the chest and pelvis as part of a trauma evaluation given her age. On reevaluation, patient continued to have absolutely no pain, she was able to stand and ambulate with minimal assistance in the emergency department. All scans and x-rays resulted as negative for any acute pathology. At this time, patient was deemed safe to be discharged back to her facility and remained in stable condition. General Adult HPI - General Chief complaint: Fall Stated complaint: Fall Time Seen by Provider: 07/10/21 16:00 Mode of Arrival: EMS Limitations: No Limitations Description of Symptoms (Recalled from ER Triage Doc. by RN): Pt to ED following a fall at intermediate. Staff states that pt hit her head, left elbow and left hip. Pt denies pain. No rotation or deformity noted to LLE. - History of Present Illness HPI narrative: 86-year-old female who presents to the emergency department with chief complaint of a fall. Patient was brought in by EMS after a witnessed fall at her intermediate. Patient was attempting to stand up from her wheelchair in the hallway when she fell forwards onto her left elbow. Staff thought they saw her strike the back of her head. On EMS arrival, patient's only complaint is that she broke her fingernail. Patient has dementia at baseline, and is not a good historian. Her medical record lists aspirin as a medication, but intermediate states that she only takes all of her meds as needed as she often refuses them. complaint: fall Onset (ago): minute(s) (45) - Related Data Home Medications Medication Instructions Recorded Confirmed Aspirin 81 mg PO DAILY 06/19/20 09/22/20 Buspirone HCl [Buspar 10mg 10 mg PO BID 06/19/20 09/22/20 tablet] Donepezil HCl [Aricept 10mg 10 mg PO HS
--- NOTE | 2021-07-10 18:07 | PC.NURSE ---
[facility] notified pt is ready to return to [facility].
[2021-07-10 18:08] VITALS: BP 137/69; PULSE 63; RESP 16; TEMP 36.8; O2SAT 98
== END 2021-07-10 19:11 ==
PROVIDERS: Emergency Provider Emergency Medicine
DX: S00.93XA Contusion of unspecified part of head, initial encounter (principal); S50.02XA Contusion of left elbow, initial encounter; S70.02XA Contusion of left hip, initial encounter; W01.0XXA Fall on same level from slipping, tripping and stumbling without subsequent striking against object, initial encounter; Y92.129 Unspecified place in nursing home as the place of occurrence of the external cause; F03.90 Unspecified dementia, unspecified severity, without behavioral disturbance, psychotic disturbance, mood disturbance, and anxiety; I10 Essential (primary) hypertension; F41.8 Other specified anxiety disorders; Z79.899 Other long term (current) drug therapy
CPT/HCPCS: 70450; 71045; 72125; 73502; 99283

== ENCOUNTER 2022-03-24 18:49 | Emergency (ER) | payer MEDICARE, MEDICAID, SELFPAY ==
[2022-03-24 18:46] VITALS: BP 155/90; PULSE 83; RESP 17; TEMP 36.7; O2SAT 96; BMI 17.9
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
[2022-03-24 19:18] VITALS: BP 150/75; PULSE 69; RESP 18; TEMP 36.6; O2SAT 94
--- NOTE | 2022-03-24 19:59 | PC.NURSE ---
ATTEMPT TO CALL REPORT TO [facility]. NO ANSWER.
[2022-03-24 20:08] VITALS: BP 145/74; PULSE 81; RESP 17; TEMP 36.7; O2SAT 95
--- NOTE | 2022-03-24 20:08 | PC.NURSE ---
REPORT TO [facility] AT [facility]
== END 2022-03-24 21:22 | disposition home or self-care (01) ==
PROVIDERS: Emergency Provider Emergency Medicine
DX: S01.111A Laceration without foreign body of right eyelid and periocular area, initial encounter (principal); R27.8 Other lack of coordination; E78.5 Hyperlipidemia, unspecified; R63.0 Anorexia; F41.9 Anxiety disorder, unspecified; K59.00 Constipation, unspecified; F39 Unspecified mood [affective] disorder; F32.9 Major depressive disorder, single episode, unspecified; F03.90 Unspecified dementia, unspecified severity, without behavioral disturbance, psychotic disturbance, mood disturbance, and anxiety; Z79.52 Long term (current) use of systemic steroids; Z79.82 Long term (current) use of aspirin; Z79.3 Long term (current) use of hormonal contraceptives; Z79.899 Other long term (current) drug therapy; Z88.5 Allergy status to narcotic agent; Z88.6 Allergy status to analgesic agent; Z68.1 Body mass index [BMI] 19.9 or less, adult; Z23 Encounter for immunization; Y04.8XXA Assault by other bodily force, initial encounter; Y93.9 Activity, unspecified; Y92.10 Unspecified residential institution as the place of occurrence of the external cause
CPT/HCPCS: 12011; G0168; 90471; 90715; 99284

== ENCOUNTER 2022-06-19 11:58 | Emergency (ER) | payer MEDICARE, MEDICAID, SELFPAY ==
[2022-06-19 11:58] VITALS: BP 140/56; PULSE 72; RESP 18; TEMP 36.3; O2SAT 97; BMI 22.3
--- NOTE | 2022-06-19 12:15 | HMH.EDGENADL ---
Discharge Plan Disposition Patient Disposition: Home, Self-Care Condition: Fair Chief Complaint: Fall Prescriptions Prescriptions: No Action atorvastatin 10 MG tablet 10 mg PO HS risperidone 0.25 MG tablet 0.25 mg PO BID cyproheptadine 4 MG tablet 4 mg PO TID sennosides-docusate sodium 1 EACH tablet 1 each PO BID bisacodyl 10 MG suppository 10 mg DE DAILYP PRN (Reason: Constipation) lactulose 20 GM/30 ML solution 20 g PO DAILYP PRN (Reason: Constipation) donepezil 10 MG tablet 10 mg PO HS buspirone 10 MG tablet 10 mg PO BID aspirin 81 MG tablet,chewable 81 mg PO DAILY lisinopril 2.5 MG tablet 2.5 mg PO DAILY memantine 10 MG tablet 10 mg PO BID mirtazapine 7.5 MG tablet 15 mg PO HS duloxetine 30 MG capsule,delayed release(DR/EC) 30 mg PO DAILY prednisone 10 mg tablet 10 mg PO DIRECTED Rx Instructions: 20mg po bid x3 days, then 10mg po bid x3 days, then 10mg po daily x3 days levofloxacin 500 mg tablet 500 mg PO 1100 Referrals Follow up/Referrals: Joao Trevino MD [Primary Care Provider] - See instructions Clinical Impressions Clinical Impression: Fall Instructions Patient Instructions: How to Prevent Falls Discharge ED Provider: Sherwin Evans General Adult HPI General Chief complaint: Fall Stated complaint: fall Time Seen by Provider: 06/19/22 12:06 Mode of Arrival: EMS History of Present Illness HPI narrative: History limited due to baseline dementia, is a 87-year-old female from nursing facility not on anticoagulants who sustained a fall out of bed approximately 11:00 this morning or however an hour ago. There is no reported loss of consciousness, she was placed back in bed, there is report she was complaining of left head and left hip pain. No obvious deformities on exam, she currently has no complaints. Related Data Home Medications Medication Instructions Recorded Confirmed aspirin 81 mg chewable tablet 81 mg PO DAILY heart health 06/19/20 05/11/22 buspirone 10 mg tablet 10 mg PO BID mood 06/19/20 05/11/22 donepezil 10 mg tablet 10 mg PO HS dementia 06/19/20 05/11/22 duloxetine 30 mg capsule,delayed 30 mg PO DAILY Depression 06/19/20 05/11/22 release lisinopril 2.5 mg tablet 2.5 mg PO DAILY Hypertension 06/19/20 05/11/22 memantine 10 mg tablet 10 mg PO BID memory 06/19/20 05/11/22 mirtazapine 7.5 mg tablet 15 mg PO HS appetite stimulant 06/19/20 05/11/22 atorvastatin 10 mg tablet 10 mg PO HS Cholesterol 08/20/20 05/11/22 cyproheptadine 4 mg tablet 4 mg PO TID increase appetite 08/20/20 05/11/22 risperidone 0.25 mg tablet 0.25 mg PO BID increase appetite 08/20/20 05/11/22 bisacodyl 10 mg rectal suppository 10 mg DE DAILYP PRN Constipation 09/04/20 05/11/22 lactulose 20 gram/30 mL oral 20 g PO DAILYP PRN Constipation 09/04/20 05/11/22 solution sennosides 8.6 mg-docusate sodium 1 each PO BID constipation 09/04/20 05/11/22 50 mg tablet levofloxacin 500 mg tablet 500 mg PO 1100 Infection 03/24/22 05/11/22 prednisone 10 mg tablet 10 mg PO DIRECTED INFLAMATION 03/24/22 05/11/22 Allergies Allergy/AdvReac Type Severity Reaction Status Date / Time codeine Allergy Verified 05/11/22 11:09 oxycodone Allergy Verified 05/11/22 11:09 [facility] Disclaimer: The information contained in this section may have been updated after the patient was seen, as this information can be updated by other users. Medical History Anorexia Anxiety disorder, unspecified COPD (chronic obstructive pulmonary disease) with acute bronchitis Major depressive disorder, recurrent Other and unspecified hyperlipidemia Other lack of coordination Unspecified mood [affective] disorder Social History Smoking Status: Unknown if ever smoked alcohol intake: never current occupational status: d
--- NOTE | 2022-06-19 12:17 | CT_ITS ---
PROCEDURE INFORMATION: Exam: CT Head Without Contrast Exam date and time: 06/19/2022 12:29 PM Age: 87 years old Clinical indication: Injury or trauma; Fall; Blunt trauma (contusions or hematomas); Without loss of consciousness TECHNIQUE: Imaging protocol: Computed tomography of the head without contrast. Radiation optimization: All CT scans at this facility use at least one of these dose optimization techniques: automated exposure control; mA and/or kV adjustment per patient size (includes targeted exams where dose is matched to clinical indication); or iterative reconstruction. COMPARISON: CT HEAD/BRAIN WO CON 07/10/2021 4:43 PM FINDINGS: Brain: Patchy hypoattenuation in the periventricular and subcortical white matter, consistent with chronic small vessel ischemia. No CT evidence of acute ischemia. No acute hemorrhage. No mass effect. Cerebral ventricles: No ventriculomegaly. Paranasal sinuses: Visualized sinuses are unremarkable. No fluid levels. Mastoid air cells: Visualized mastoid air cells are well aerated. Orbital cavities: Bilateral lens extractions. Bones/joints: Unremarkable. No acute fracture. Soft tissues: Unremarkable. IMPRESSION: No acute intracranial abnormality. Please note that MRI is more sensitive for early changes of acute ischemia.
--- NOTE | 2022-06-19 12:17 | XR_ITS ---
PROCEDURE INFORMATION: Exam: XR Bilateral Hips Exam date and time: 06/19/2022 12:42 PM Age: 87 years old Clinical indication: Injury or trauma; Fall; Blunt trauma (contusions or hematomas); Bilateral; Hip; Additional info: Fall-- TECHNIQUE: Imaging protocol: Radiologic exam of the bilateral hips. Views: 2 views of hips with pelvis when performed. COMPARISON: CR XR HIP LT 2-3V W/PELVIS 07/10/2021 4:53 PM FINDINGS: Bones/joints: No acute fracture or malalignment. Mild degenerative changes of the bilateral hips. Osteopenia. Soft tissues: Unremarkable. IMPRESSION: No acute fracture or malalignment.
--- NOTE | 2022-06-19 12:17 | XR_ITS ---
PROCEDURE INFORMATION: Exam: XR Chest Exam date and time: 06/19/2022 12:42 PM Age: 87 years old Clinical indication: Shortness of breath; Additional info: Sob/cp TECHNIQUE: Imaging protocol: Radiologic exam of the chest. Views: 1 view. COMPARISON: CR XR CHEST PORTABLE 07/10/2021 4:53 PM FINDINGS: Lungs: Calcified granulomas are seen bilaterally. No focal airspace consolidation. Pleural spaces: Unremarkable. No pleural effusion. No pneumothorax. Heart/Mediastinum: Unremarkable. No cardiomegaly. Bones/joints: Changes of prior vertebral augmentation of a midthoracic vertebral body. IMPRESSION: No acute cardiopulmonary abnormality.
[2022-06-19 13:00] VITALS: BP 124/56; PULSE 62; RESP 18; O2SAT 97
[2022-06-19 13:51] VITALS: BP 119/70; PULSE 64; RESP 20; TEMP 36.3; O2SAT 98
== END 2022-06-19 13:09 | disposition home or self-care (01) ==
PROVIDERS: Emergency Provider Emergency Medicine; PCP Emergency Medicine
DX: F33.9 Major depressive disorder, recurrent, unspecified (principal); F03.90 Unspecified dementia, unspecified severity, without behavioral disturbance, psychotic disturbance, mood disturbance, and anxiety; M25.552 Pain in left hip; K59.00 Constipation, unspecified; R51.9 Headache, unspecified; E78.5 Hyperlipidemia, unspecified; R63.0 Anorexia; J44.9 Chronic obstructive pulmonary disease, unspecified; F39 Unspecified mood [affective] disorder; F41.9 Anxiety disorder, unspecified; Z79.52 Long term (current) use of systemic steroids; Z79.82 Long term (current) use of aspirin; Z79.899 Other long term (current) drug therapy; Z88.5 Allergy status to narcotic agent; Z88.8 Allergy status to other drugs, medicaments and biological substances; Z68.22 Body mass index [BMI] 22.0-22.9, adult; W06.XXXA Fall from bed, initial encounter
CPT/HCPCS: 70450; 71045; 73521; 99285

== ENCOUNTER → 2022-09-23 10:55 | Outpatient (CLI) | payer MEDICARE, MEDICAID, SELFPAY ==
--- NOTE | 2022-09-23 10:55 | FL_ITS ---
FINAL REPORT CLINICAL HISTORY: difficulty swallowing fluoro time 2.07 FINDINGS: MODIFIED BARIUM SWALLOW History: Dysphagia. FINDINGS: Fluoroscopy was provided for the speech pathologist to evaluate the swallowing mechanism. The patient was given several different consistencies of barium while the swallow was visualized fluoroscopically. The report of the speech pathologist should be consulted prior to making dietary decisions. FLUOROSCOPY TIME: 2 minutes 7 seconds. 18 cine runs were obtained. IMPRESSION: Modified barium swallow under fluoroscopic guidance. Please see the report of the speech pathologist for more detail. Films reviewed , interpreted and dictated by Dr. Erwin. Transcribed by Pawan Stringer PA-C. Reviewed, Interpreted and Dictated by Familia Erwin III, MD Transcribed by MALLY Randolph Authenticated and [facility]
--- NOTE | 2022-09-23 14:28 | HMH.SLMBS2 ---
Speech & Language Evaluation Speech/Language Mod Barium Swallow Start: 09/23/22 13:20 Freq: once Status: Complete Protocol: Document 09/23/22 13:20 DENISE (Rec: 09/23/22 14:28 DENISE [id number]) General Information General Current Food Consistency Pureed,[place] Liquids Oxygen Status Room Air Ability to Follow Directions Poor Communication Ability Severe Impairment MBS Recommendations Diet Comment U/A to make safe diet recommendations given limited trials on MBSS. Mod Barium Swallow Impressions Summary and Impressions Oral Phase Summary Unable to fully assess 2' pt's level of arousal and difficulty remaining alert. Premature spillage to the pyriform sinuses was noted, as well as tongue pumping, which is typical in patient's whin dementia. STOCK PATCH SAWYER did not trial solids as pt was unarousable after 4 trials. Pharyngeal Phase Summary Unable to fully assess given pt falling asleep after a limited number of trials and being unable to arouse to complete MBSS. Pietro aspiration noted with nectar thick and honey thick liquids after the swallow 2' moderate diffuse pharyngeal residue. Diffuse residue 2' reduced hyolaryngeal movement, reduced epiglottic inversion, reduced BOT retraction, and reduced pharyngeal squeeze. Residue was increased with puree and pudding. Speech/Language MBS Assessment/Goals/Plan Assessment Date of Evaluation: 09/23/22 Evaluation Type Initial Certification Assessment/Problems Dysphagia per MD order. Does Patient Qualify for Service Yes Qualify/Failure Comment STOCK PATCH SAWYER at nursing facility will follow up for care. Plan Pt/Guardian verbally ack understanding Yes of dx/prognosis/goals Pt/Guardian verbally ack understanding Yes of/consent to tx prog G -code Required No Education Instructions provided MBSS results discussed with pt and caregiver from [place] as well as ST[employer] PATCH [employer]ER from [place] who expressed
== END ==
PROVIDERS: PCP Emergency Medicine; Visit Provider Nurse Practitioner Family
DX: R13.10 Dysphagia, unspecified (principal)
CPT/HCPCS: 70371; 92611

== ENCOUNTER 2022-09-23 19:27 | Inpatient (IN) | payer MEDICARE, MEDICAID, SELFPAY ==
[2022-09-23] VITALS (8 sets, daily range): BP systolic 118–180; BP diastolic 58–86; PULSE 66–86; RESP 18–25; TEMP 36.6–38.1; O2SAT 90–98; BMI 16.0; BMI 17.6
--- NOTE | 2022-09-23 19:43 | HMH.EDGENADL ---
Discharge Plan Disposition Patient Disposition: Still a Patient Prescriptions Prescriptions: No Action atorvastatin 10 MG tablet 10 mg PO HS risperidone 0.25 MG tablet 0.25 mg PO BID cyproheptadine 4 MG tablet 4 mg PO TID sennosides-docusate sodium 1 EACH tablet 1 each PO BID bisacodyl 10 MG suppository 10 mg PA DAILYP PRN (Reason: Constipation) lactulose 20 GM/30 ML solution 20 g PO DAILYP PRN (Reason: Constipation) donepezil 10 MG tablet 10 mg PO HS buspirone 10 MG tablet 10 mg PO BID aspirin 81 MG tablet,chewable 81 mg PO DAILY lisinopril 2.5 MG tablet 2.5 mg PO DAILY memantine 10 MG tablet 10 mg PO BID mirtazapine 7.5 MG tablet 15 mg PO HS duloxetine 30 MG capsule,delayed release(DR/EC) 30 mg PO DAILY prednisone 10 mg tablet 10 mg PO DIRECTED Rx Instructions: 20mg po bid x3 days, then 10mg po bid x3 days, then 10mg po daily x3 days Referrals Follow up/Referrals: Joao Trevino MD [Primary Care Provider] - See instructions Clinical Impressions Clinical Impression: Severe sepsis, Hypoxia, Encephalopathy acute Discharge ED Provider: Jimmie Whyte General Adult HPI General Stated complaint: low oxygen, fever, not eating or drinking Time Seen by Provider: 09/23/22 19:52 History of Present Illness HPI narrative: Patient is an 87-year-old female from [facility] sent in for altered mental status hypoxia fever and possible aspiration event. Apparently she was sent over earlier today for a barium swallow and since that time had a possible aspiration event and has had the preceding symptoms. Her mental status is off of her baseline where she is normally more verbally interactive and per the half-way and EMS she has been very somnolent. Remainder of history is unable to be obtained secondary to patient's clinical status. Related Data Home Medications Medication Instructions Recorded Confirmed aspirin 81 mg chewable tablet 81 mg PO DAILY heart health 06/19/20 08/17/22 buspirone 10 mg tablet 10 mg PO BID mood 06/19/20 08/17/22 donepezil 10 mg tablet 10 mg PO HS dementia 06/19/20 08/17/22 duloxetine 30 mg capsule,delayed 30 mg PO DAILY Depression 06/19/20 08/17/22 release lisinopril 2.5 mg tablet 2.5 mg PO DAILY Hypertension 06/19/20 08/17/22 memantine 10 mg tablet 10 mg PO BID memory 06/19/20 08/17/22 mirtazapine 7.5 mg tablet 15 mg PO HS appetite stimulant 06/19/20 08/17/22 atorvastatin 10 mg tablet 10 mg PO HS Cholesterol 08/20/20 08/17/22 cyproheptadine 4 mg tablet 4 mg PO TID increase appetite 08/20/20 08/17/22 risperidone 0.25 mg tablet 0.25 mg PO BID increase appetite 08/20/20 08/17/22 bisacodyl 10 mg rectal suppository 10 mg PA DAILYP PRN Constipation 09/04/20 08/17/22 lactulose 20 gram/30 mL oral 20 g PO DAILYP PRN Constipation 09/04/20 08/17/22 solution sennosides 8.6 mg-docusate sodium 1 each PO BID constipation 09/04/20 08/17/22 50 mg tablet prednisone 10 mg tablet 10 mg PO DIRECTED INFLAMATION 03/24/22 08/17/22 Allergies Allergy/AdvReac Type Severity Reaction Status Date / Time codeine Allergy Verified 08/17/22 20:11 oxycodone Allergy Verified 08/17/22 20:11 [facility] Disclaimer: The information contained in this section may have been updated after the patient was seen, as this information can be updated by other users. Medical History (Updated 09/23/22 @ 19:52 by Jimmie Whyte MD) Anorexia Anxiety disorder, unspecified COPD (chronic obstructive pulmonary disease) with acute bronchitis Major depressive disorder, recurrent Other and unspecified hyperlipidemia Other lack of coordination Unspecified mood [affective] disorder Social History Smoking Status: Unknown if ever smoked alcohol intake: never current occupational status: disabled Travel in the last 8 weeks: None household members:
--- NOTE | 2022-09-23 19:46 | XR_ITS ---
PROCEDURE INFORMATION: Exam: XR Chest Exam date and time: 09/23/2022 8:05 PM Age: 87 years old Clinical indication: Fever and other: Hypoxia; Additional info: Fever, hypoxia, AMS TECHNIQUE: Imaging protocol: Radiologic exam of the chest. Views: 1 view. COMPARISON: CR XR CHEST PORTABLE 06/19/2022 12:42 PM FINDINGS: Lungs: Multiple calcified granulomas noted in both lungs. No acute infiltrate. Pleural spaces: Unremarkable. No pleural effusion. No pneumothorax. Heart/Mediastinum: Unremarkable. No cardiomegaly. Bones/joints: Significant degenerative changes of the spine and right shoulder again noted. Again seen does not of prior vertebroplasty in the lower thoracic spine. IMPRESSION: No acute abnormality
--- NOTE | 2022-09-23 19:49 | CT_ITS ---
PROCEDURE INFORMATION: Exam: CT Head Without Contrast Exam date and time: 09/23/2022 8:08 PM Age: 87 years old Clinical indication: Altered mental status/memory loss; Additional info: AMS TECHNIQUE: Imaging protocol: Computed tomography of the head without contrast. Radiation optimization: All CT scans at this facility use at least one of these dose optimization techniques: automated exposure control; mA and/or kV adjustment per patient size (includes targeted exams where dose is matched to clinical indication); or iterative reconstruction. REPORTING DATA: Count of CT and Cardiac NM exams in prior 12 months: This patient has received [address] and 0 known cardiac nuclear medicine studies in the 12 months prior to the current study. COMPARISON: CT HEAD/BRAIN WO CON 06/19/2022 12:29 PM FINDINGS: Brain: There has been interval development of a 1.5 cm area of hypodensity in the right gandhi radiata compatible with chronic ischemic changes. 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 Diffuse periventricular hypoattenuation compatible with chronic microvascular ischemic changes noted. No intracranial mass or hemorrhage evident. Cerebral ventricles: Unremarkable. No hydrocephalus. Paranasal sinuses: Visualized sinuses are unremarkable. No fluid levels. Mastoid air cells: Visualized mastoid air cells are well aerated. Bones/joints: Unremarkable. No acute fracture. Soft tissues: Unremarkable. IMPRESSION: Interval progression of chronic appearing ischemic changes in the right gandhi radiata. No acute intracranial hemorrhage
--- NOTE | 2022-09-23 19:50 | ECG_ITS ---
APPROVED REPORT Exam: Resting ECG HR:86 bpm ECG Measurements Heart Rate 86 AXES TN 127 P 71 QRSd 72 QRS 55 QT 294 T 39 QTc 337 Conclusion SINUS RHYTHM NONSPECIFIC ST & T-WAVE ABNORMALITY BORDERLINE ECG UNCONFIRMED REPORT Electronically signed by : Juan Enamorado MD 09/24/2022 17:02:14
--- NOTE | 2022-09-23 19:53 | PC.NURSE ---
RAD at for CXR
[2022-09-23 19:54] LABS: Coronavirus 19, PCR Not Detected (NotDetected); Influenza A, PCR Not Detected (NotDetected); Influenza B, PCR Not Detected (NotDetected); Microscopic, Urine URINE MICROSCOPIC (MICROSCOPIC)
[2022-09-23 19:58] LABS: Basophils % 0.2 % (0.1-2.0); Eosinophils # 0.2 K/mm3 (0.0-0.4); Hematocrit 49.1 % (37.0-47.0); Lymphocytes # 1.2 K/mm3 (0.7-4.5); Mean Corpuscular HGB Conc 32.5 g/dL (31.8-35.4); Mean Corpuscular Hemoglobin 29.7 pg (27.0-31.2); Mean Corpuscular Volume 91.3 fl (81-99); Mean Platelet Volume 8.3 fl (7.4-10.4); Monocytes # 0.6 K/mm3 (0.1-1.0); Neutrophils # 12.9 K/mm3 (1.8-7.8); Neutrophils % 86.9 % (37.0-80.0); Platelet Count 271 K/mm3 (142-424); Red Blood Count 5.38 M/mm3 (4.20-5.40); Red Cell Distribution Width 14.6 % (11.5-17.5); White Blood Count 14.8 K/mm3 (4.8-10.8)
[2022-09-23 20:00] LABS: MANUAL DIFFERENTIAL MANUAL DIFFERENTIAL (MANUAL DIFF)
[2022-09-23 20:01] LABS: Appearance,Urine CLEAR (Clear); Bilirubin,Urine Negative (Negative); Blood, Urine 1+ (Negative); Color,Urine YELLOW (Yellow); Glucose,Urine (UA) Negative (Negative); Ketones,Urine 2+ (Negative); Leukocyte Esterase,Urine 2+ (Negative); Nitrate,Urine POSITIVE (Negative); Protein,Urine TRACE (Negative); Specific Gravity, Urine 1.025 (1.005-1.030)
[2022-09-23 20:02] LABS: Chloride 102 mmol/L (98-107)
[2022-09-23 20:03] LABS: Potassium 3.8 mmoL/L (3.5-5.1); Sodium 144 mmol/L (136-145)
[2022-09-23 20:05] LABS: Alanine Aminotransferase 18 U/L (12-78); Albumin/Globulin Ratio 1.3 (1.1-1.8); Alkaline Phosphatase 85 U/L (38-126); Anion Gap 12.8 mEq/L (5-15); Aspartate Amino Transferase 26 U/L (14-36); Bilirubin,Total 0.9 mg/dl (0.2-1.3); Blood Urea Nitrogen 16 mg/dl (7-17); Carbon Dioxide 33 mmol/L (22.0-30.0); Creatinine Clearance Estimated 25 mL/min (50-200); Estimated Glomerular Filt Rate 117 ml/min (>60); GFR (African American) 142 ML/MIN (>60); Globulin 3.1 g/dL (1.3-3.2); Lactic Acid 1.6 mmol/L (0.7-2.1); Total Protein,Serum 7.1 g/dl (6.3-8.2)
[2022-09-23 20:06] LABS: Calcium 9.1 mg/dl (8.4-10.2); Glucose 113 mg/dl (74-100)
[2022-09-23 20:21] LABS: Amorphous Sediment,Urine 3+ /lpf; Bacteria,Urine 2+ /lpf
[2022-09-23 20:23] LABS: Lymphocytes % 5 % (10-50); Monocytes % 7 % (2-9); Neutrophils % 88 % (42-76); Platelet Estimate Normal; RBC Morphology Normal; Total Cells Counted 100
[2022-09-23 20:25] LABS: NT Pro Brain Natriuretic Pep. 473 pg/mL (0-450)
--- NOTE | 2022-09-23 20:27 | PC.NURSE ---
Called RT for duoneb treatment
--- NOTE | 2022-09-23 20:27 | PC.NURSE ---
Called lab to have them draw second set of cultures
--- NOTE | 2022-09-23 20:33 | PC.NURSE ---
Dr. Trevino s/w hospitalist for admission
[2022-09-23 20:46] LABS: VBG Base Excess 3.3 mmol/L (-2.4-2.3); VBG Oxygen Saturation 72.2 % (50-70); VBG PCO2 46.1 mmol/L (35-51); VBG PO2 36.5 mmol/L (28-40); VBG Total CO2 29.5 mmol/L (23-27)
--- NOTE | 2022-09-23 20:48 | PC.NURSE ---
Clarified with RN who cares for patient at [place], patient only takes the 1 medication listed to eMAR here.
--- NOTE | 2022-09-23 21:05 | PC.NURSE ---
Rounded on pt. Pt resting in bed with eyes closed. No need voiced at this time.
--- NOTE | 2022-09-23 21:11 | PC.NURSE ---
Hospitalist, Sindi at [facility]
--- NOTE | 2022-09-23 21:20 | PC.NURSE ---
PATIENT OBSERVATION ADMIT TO 203 TO SERVICE OF HOSPITALIST WITH DX OF ENCEPHALOPATHY, CYSTITIS, AND POSSIBLE ASPIRATION.
--- NOTE | 2022-09-23 21:42 | PC.NURSE ---
Pt arrived to floor via stretcher @ [phone]
--- NOTE | 2022-09-23 21:59 | EXP.HP ---
History of Present Illness *Admission Date: 09/23/22 *Reason for visit:: Altered mental status *History of present illness: this is an 87-year-old female who resides at [facility] who presents emergency department today with hypoxia and altered mental status. Reportedly patient underwent barium swallow today and was noted by staff to be altered above baseline. From prior documentation, patient is typically able to communicate. She presents today encephalopathic and nonverbal. Review of systems difficult to obtain secondary to patient's mental status. Patient notable to be hypoxic in the 80s on room air. She does not wear oxygen at the [facility]. Further work-up reveals urinary tract infection. Chest x-ray non revealing. leukocytosis noted with a white blood cell count of 14. Lactic acid negative. She is oxygenating well on 2 L nasal cannula. Given the above-mentioned complaints, internal medicine was consulted for admission and she will be admitted to the hospital service for further evaluation and management. [facility] Disclaimer: The information contained in this section may have been updated after the patient was seen, as this information can be updated by other users. Medical History Anorexia Anxiety disorder, unspecified COPD (chronic obstructive pulmonary disease) with acute bronchitis Major depressive disorder, recurrent Other and unspecified hyperlipidemia Other lack of coordination Unspecified mood [affective] disorder Social History (Updated 09/23/22 @ 22:43 by Sheryl Lopez RN) Smoking Status: Never smoker alcohol intake: never current occupational status: disabled Travel in the last 8 weeks: None household members: other housing: house current occupational exposures/hazards: No Review of Systems Review of Systems Review of systems:: unable to obtain Review of systems (narrative): Altered mental status Meds Home Medications and Allergies Home Medications Medication Instructions Recorded Confirmed Type mirtazapine 15 mg tablet (Remeron) 15 mg PO HS Appetite Supplement 09/23/22 09/23/22 History acetaminophen 500 mg tablet 500 mg PO Q4HP PRN pain/fever 09/24/22 09/24/22 History lactulose 20 gram/30 mL oral 20 g PO DAILYP PRN Constipation 09/24/22 09/24/22 History solution senna-docusate sodium tablet 1 tab PO BIDP PRN Constipation 09/24/22 09/24/22 History New Prescriptions to Start Prescriptions: Allergies Allergy/AdvReac Type Severity Reaction Status Date / Time codeine Allergy Verified 09/24/22 12:30 oxycodone Allergy Verified 09/24/22 12:30 Exam Data for Last 24 hours Vital signs and Labs for Last 24 Hours: Temp Pulse Resp BP Pulse Ox 98 F 78 18 118/58 L 90 L 09/23/22 21:30 09/23/22 21:30 09/23/22 21:30 09/23/22 21:30 09/23/22 21:00 Laboratory Results - last 24 hr 09/23/22 19:44: Urine Color Yellow, Urine Appearance Clear, Urine pH 6.0, Ur Specific [place] 1.025, Urine Protein Trace, Urine Glucose (UA) Negative, Urine Ketones 2+, Urine Blood 1+, Urine Nitrate Positive, Urine Bilirubin Negative, Urine Urobilinogen 1.0, Ur Leukocyte Esterase 2+ A, Urine RBC 3-5, Urine WBC 10-20, Amorphous Sediment 3+, Urine Bacteria 2+ 09/23/22 19:44: WBC 14.8 H, RBC 5.38, Hgb 16.0, Hct 49.1 H, MCV 91.3, MCH 29.7, MCHC 32.5, RDW 14.6, Plt Count 271, MPV 8.3, Neut % (Auto) 86.9 H, Lymph % (Auto) 8.0 L, [place] % (Auto) 4.0, Eos % (Auto) 1.0, Baso % (Auto) 0.2, Neut # (Auto) 12.9 H, Lymph # (Auto) 1.2, [place] # (Auto) 0.6, Eos # (Auto) 0.2, Baso # (Auto) 0.0, Total Counted 100, Neutrophils % (Manual) 88 H, Lymphocytes % (Manual) 5 L, Monocytes % (Manual) 7, Platelet Estimate Normal, RBC Morphology Normal 09/23/22 19:44: Sodium 144, Potassium 3.8, Chloride 102, Carbon Dioxide 33 H, Anion Gap 12.8, BUN 16, Creatinine 0.50 L, Estimated Creat Clear 25, Estimated GFR 117, Est GFR ( Amer) 142, Glucose 113 H, Calcium 9.1, Total Bi
--- NOTE | 2022-09-23 22:07 | PC.NURSE ---
AT 2135 PATIENT ARRIVED TO THE MED SURG FLOOR VIA STRETCHER FROM THE ED. PATIENT IS AN 87 YO FEMALE FROM [facility]. ADMISSION DX: ACUTE ENCEPHALOPATHY/HYPOXIA/UTI/CYSTITUS. ADMITTED TO RM 203. 02 AT 2LNC APPLIED. OATIENT IS CONFUSED. LETHARGIC.
[2022-09-23 22:16] LABS: C-Reactive Protein 29.9 mg/L (0-4)
[2022-09-23 22:29] LABS: Procalcitonin 0.057 ng/mL (0.0-2.0)
[2022-09-23 22:38] LABS: Erythrocyte Sedimentation Rate 11 mm/hr (0-30)
--- NOTE | 2022-09-23 22:54 | PC.NURSE ---
PATIENT ARRIVED TO THE FLOOR AT 2137 VIA STRETCHER. ADMISSION DX: CYSTITUS/ENCEPHALOPATHY. WAS CONFUSED AND LETHARGIC WHILE IN THE ED. UNRESPONSIVE TO STAFF UPON ADMISSION. CLARK TAVERAS AWARE AND WAS LIKE THIS PRIOR TO ADMISSION.
[2022-09-24] VITALS: BP 140/69; PULSE 62; RESP 18; TEMP 36.7; O2SAT 95
[2022-09-24 04:00] VITALS: BP 169/82; PULSE 74; RESP 18; TEMP 36.7; O2SAT 95
--- NOTE | 2022-09-24 05:19 | PC.NURSE ---
UNRESPONSIVE FOR MOST OF THIS SHIFT EVEN TO PAINFUL STIMULI. AT 4 PM PATIENT ANSWERED YES TO QUESTION , 'DO U KNOW WHO U ARE. VSS / AFEBRILE. REMAINS NPO. HAS PARKER CATH, URINE CLEAR YELLOW. REFUSES TO OPEN EYES .
[2022-09-24 07:04] LABS: Basophils # 0.1 K/mm3 (0-0.2); Basophils % 0.3 % (0.1-2.0); Eosinophils # 0.1 K/mm3 (0.0-0.4); Eosinophils % 0.6 % (0.1-12.0); Hematocrit 48.3 % (37.0-47.0); Hemoglobin 15.1 g/dL (12.2-16.2); Lymphocytes # 0.9 K/mm3 (0.7-4.5); Lymphocytes % 5.9 % (10-50); Mean Corpuscular HGB Conc 31.4 g/dL (31.8-35.4); Mean Corpuscular Hemoglobin 29.5 pg (27.0-31.2); Mean Corpuscular Volume 94.1 fl (81-99); Mean Platelet Volume 8.4 fl (7.4-10.4); Monocytes # 0.7 K/mm3 (0.1-1.0); Monocytes % 4.8 % (1.7-9.3); Neutrophils # 13.8 K/mm3 (1.8-7.8); Neutrophils % 88.4 % (37.0-80.0); Platelet Count 210 K/mm3 (142-424); Red Blood Count 5.13 M/mm3 (4.20-5.40); Red Cell Distribution Width 14.4 % (11.5-17.5); White Blood Count 15.6 K/mm3 (4.8-10.8)
[2022-09-24 07:07] LABS: MANUAL DIFFERENTIAL MANUAL DIFFERENTIAL (MANUAL DIFF)
[2022-09-24 07:28] LABS: Chloride 106 mmol/L (98-107); Sodium 143 mmol/L (136-145)
[2022-09-24 07:29] LABS: Potassium 3.6 mmoL/L (3.5-5.1)
[2022-09-24 07:31] LABS: Anion Gap 11.6 mEq/L (5-15); Blood Urea Nitrogen 14 mg/dl (7-17); Carbon Dioxide 29 mmol/L (22.0-30.0); Creatinine Clearance Estimated 31 mL/min (50-200); Estimated Glomerular Filt Rate 117 ml/min (>60); GFR (African American) 142 ML/MIN (>60)
[2022-09-24 07:32] LABS: Calcium 8.5 mg/dl (8.4-10.2); Glucose 106 mg/dl (74-100); Magnesium 1.7 mg/dl (1.6-2.3)
[2022-09-24 07:41] LABS: Lymphocytes % 8 % (10-50); Monocytes % 2 % (2-9); Neutrophils % 90 % (42-76); Platelet Estimate Normal; RBC Morphology Normal; Total Cells Counted 100
[2022-09-24 08:00] VITALS: BP 169/80; PULSE 70; RESP 22; TEMP 38.1; O2SAT 95
--- NOTE | 2022-09-24 08:12 | EXP.PHA.CONS ---
Pharmacy Consult Date: 09/24/22 Time: 08:17 Referring provider: DR STROUD Reason for Consult:: VANCOMYCIN DOSING CONSULT Allergies Allergy/AdvReac Type Severity Reaction Status Date / Time codeine Allergy Verified 08/17/22 20:11 oxycodone Allergy Verified 08/17/22 20:11 Home Medications Medication Instructions Recorded Confirmed Type mirtazapine 15 mg tablet (Remeron) 15 mg PO HS Appetite Supplement 09/23/22 09/23/22 History acetaminophen 500 mg tablet 500 mg PO Q4HP PRN pain/fever 09/24/22 09/24/22 History lactulose 20 gram/30 mL oral 20 g PO DAILYP PRN Constipation 09/24/22 09/24/22 History solution senna-docusate sodium tablet 1 tab PO BIDP PRN Constipation 09/24/22 09/24/22 History New Prescriptions to Start Prescriptions: Height: 1.55 m Weight: 48.279 kg Laboratory Results:: Laboratory Results - last 24 hr 09/23/22 19:44: Urine Color Yellow, Urine Appearance Clear, Urine pH 6.0, Ur Specific [place] 1.025, Urine Protein Trace, Urine Glucose (UA) Negative, Urine Ketones 2+, Urine Blood 1+, Urine Nitrate Positive, Urine Bilirubin Negative, Urine Urobilinogen 1.0, Ur Leukocyte Esterase 2+ A, Urine RBC 3-5, Urine WBC 10-20, Amorphous Sediment 3+, Urine Bacteria 2+ 09/23/22 19:44: WBC 14.8 H, RBC 5.38, Hgb 16.0, Hct 49.1 H, MCV 91.3, MCH 29.7, MCHC 32.5, RDW 14.6, Plt Count 271, MPV 8.3, Neut % (Auto) 86.9 H, Lymph % (Auto) 8.0 L, [place] % (Auto) 4.0, Eos % (Auto) 1.0, Baso % (Auto) 0.2, Neut # (Auto) 12.9 H, Lymph # (Auto) 1.2, [place] # (Auto) 0.6, Eos # (Auto) 0.2, Baso # (Auto) 0.0, Total Counted 100, Neutrophils % (Manual) 88 H, Lymphocytes % (Manual) 5 L, Monocytes % (Manual) 7, Platelet Estimate Normal, RBC Morphology Normal 09/23/22 19:44: Sodium 144, Potassium 3.8, Chloride 102, Carbon Dioxide 33 H, Anion Gap 12.8, BUN 16, Creatinine 0.50 L, Estimated Creat Clear 25, Estimated GFR 117, Est GFR ( Amer) 142, Glucose 113 H, Calcium 9.1, Total Bilirubin 0.9, AST 26, ALT 18, Alkaline Phosphatase 85, Total Protein 7.1, Albumin 4.0, Globulin 3.1, Albumin/Globulin Ratio 1.3 09/23/22 19:44: Lactate 1.6 09/23/22 19:44: SARS-CoV-2 (PCR) Not detected, Influenza A Untype (PCR) Not detected, Influenza Type B (PCR) Not detected 09/23/22 19:44: NT-Pro-B Natriuret Pep 473 H 09/23/22 19:44: ESR 11 09/23/22 19:44: C-Reactive Protein 29.9 H, Procalcitonin 0.057 09/23/22 19:47: VBG pH 7.40, VBG pCO2 46.1, VBG pO2 36.5, VBG HCO3 28.0, VBG Total CO2 29.5 H, VBG O2 Saturation 72.2 H, VBG Base Excess 3.3 H 09/24/22 06:35: WBC 15.6 H, RBC 5.13, Hgb 15.1, Hct 48.3 H, MCV 94.1, MCH 29.5, MCHC 31.4 L, RDW 14.4, Plt Count 210, MPV 8.4, Neut % (Auto) 88.4 H, Lymph % (Auto) 5.9 L, [place] % (Auto) 4.8, Eos % (Auto) 0.6, Baso % (Auto) 0.3, Neut # (Auto) 13.8 H, Lymph # (Auto) 0.9, [place] # (Auto) 0.7, Eos # (Auto) 0.1, Baso # (Auto) 0.1, Total Counted 100, Neutrophils % (Manual) 90 H, Lymphocytes % (Manual) 8 L, Monocytes % (Manual) 2, Platelet Estimate Normal, RBC Morphology Normal 09/24/22 06:35: Sodium 143, Potassium 3.6, Chloride 106, Carbon Dioxide 29, Anion Gap 11.6, BUN 14, Creatinine 0.50 L, Estimated Creat Clear 31, Estimated GFR 117, Est GFR ( Amer) 142, Glucose 106 H, Calcium 8.5, Magnesium 1.7 Medical History: Medical History (Updated 09/23/22 @ 22:01 by Sindi Grant [facility]) Anorexia Anxiety disorder, unspecified COPD (chronic obstructive pulmonary disease) with acute bronchitis Major depressive disorder, recurrent Other and unspecified hyperlipidemia Other lack of coordination Unspecified mood [affective] disorder Assessment and Plan Assessment and plan all Dx Assessment and Plan for all problems:: Pharmacokinetic dosing service Objective: Age: 87 yo Serum creatinine: 1 mg/dL Height: 61.0 Inches Weight (kg): 48.279 Diagnosis: PNEUMONIA, SEPSIS Assessment: IBW (kg): 47.80 Dosing wt(kg): 48.279 Estimated Creatinine
--- NOTE | 2022-09-24 08:36 | EXP.PN ---
Subjective *Date: 09/24/22 *Time: 11:02 Interval history: She is saturating 95% on 2.5L and this morning spiked a fever of 100.6 degrees F WBC count is stable at 15K UA with 20WBCs She is awake this morning and is able to tell me her name. She doesn't respond appropriately to any other verbal cues. Exam Data for Last 24 hours Vital signs and Labs for Last 24 Hours: Temp Pulse Resp BP Pulse Ox 98.0 F 74 18 169/82 H 95 09/24/22 04:00 09/24/22 04:00 09/24/22 04:00 09/24/22 04:00 09/24/22 04:00 Laboratory Results - last 24 hr 09/23/22 19:44: Urine Color Yellow, Urine Appearance Clear, Urine pH 6.0, Ur Specific [place] 1.025, Urine Protein Trace, Urine Glucose (UA) Negative, Urine Ketones 2+, Urine Blood 1+, Urine Nitrate Positive, Urine Bilirubin Negative, Urine Urobilinogen 1.0, Ur Leukocyte Esterase 2+ A, Urine RBC 3-5, Urine WBC 10-20, Amorphous Sediment 3+, Urine Bacteria 2+ 09/23/22 19:44: WBC 14.8 H, RBC 5.38, Hgb 16.0, Hct 49.1 H, MCV 91.3, MCH 29.7, MCHC 32.5, RDW 14.6, Plt Count 271, MPV 8.3, Neut % (Auto) 86.9 H, Lymph % (Auto) 8.0 L, [place] % (Auto) 4.0, Eos % (Auto) 1.0, Baso % (Auto) 0.2, Neut # (Auto) 12.9 H, Lymph # (Auto) 1.2, [place] # (Auto) 0.6, Eos # (Auto) 0.2, Baso # (Auto) 0.0, Total Counted 100, Neutrophils % (Manual) 88 H, Lymphocytes % (Manual) 5 L, Monocytes % (Manual) 7, Platelet Estimate Normal, RBC Morphology Normal 09/23/22 19:44: Sodium 144, Potassium 3.8, Chloride 102, Carbon Dioxide 33 H, Anion Gap 12.8, BUN 16, Creatinine 0.50 L, Estimated Creat Clear 25, Estimated GFR 117, Est GFR ( Amer) 142, Glucose 113 H, Calcium 9.1, Total Bilirubin 0.9, AST 26, ALT 18, Alkaline Phosphatase 85, Total Protein 7.1, Albumin 4.0, Globulin 3.1, Albumin/Globulin Ratio 1.3 09/23/22 19:44: Lactate 1.6 09/23/22 19:44: SARS-CoV-2 (PCR) Not detected, Influenza A Untype (PCR) Not detected, Influenza Type B (PCR) Not detected 09/23/22 19:44: NT-Pro-B Natriuret Pep 473 H 09/23/22 19:44: ESR 11 09/23/22 19:44: C-Reactive Protein 29.9 H, Procalcitonin 0.057 09/23/22 19:47: VBG pH 7.40, VBG pCO2 46.1, VBG pO2 36.5, VBG HCO3 28.0, VBG Total CO2 29.5 H, VBG O2 Saturation 72.2 H, VBG Base Excess 3.3 H 09/24/22 06:35: WBC 15.6 H, RBC 5.13, Hgb 15.1, Hct 48.3 H, MCV 94.1, MCH 29.5, MCHC 31.4 L, RDW 14.4, Plt Count 210, MPV 8.4, Neut % (Auto) 88.4 H, Lymph % (Auto) 5.9 L, [place] % (Auto) 4.8, Eos % (Auto) 0.6, Baso % (Auto) 0.3, Neut # (Auto) 13.8 H, Lymph # (Auto) 0.9, [place] # (Auto) 0.7, Eos # (Auto) 0.1, Baso # (Auto) 0.1, Total Counted 100, Neutrophils % (Manual) 90 H, Lymphocytes % (Manual) 8 L, Monocytes % (Manual) 2, Platelet Estimate Normal, RBC Morphology Normal 09/24/22 06:35: Sodium 143, Potassium 3.6, Chloride 106, Carbon Dioxide 29, Anion Gap 11.6, BUN 14, Creatinine 0.50 L, Estimated Creat Clear 31, Estimated GFR 117, Est GFR ( Amer) 142, Glucose 106 H, Calcium 8.5, Magnesium 1.7 I & O for Last 24 hours: Intake & Output 09/21/22 09/22/22 09/23/22 09/24/22 23:59 23:59 23:59 23:59 Intake Total 900 / 900 Output Total 150 / 150 Balance 750 / 750 Weight 42.383 kg 48.279 kg Microbiology Reports for the Last 24 Hours: Microbiology 09/23/22 19:44 Urine,Clean Catch Urine Culture - Preliminary Constitutional Constitutional: no acute distress *Routine HEENT Exam Head: Present normocephalic Eye: Present EOMI and PERRL ENT: Present mucous membranes moist *Routine Neck Exam Neck: Present supple; Absent lymphadenopathy *Routine Respiratory Exam Respiratory: Present CTA bilaterally *Routine Cardiovascular Exam Cardiovascular: Present RRR *Routine Abdominal Exam Abdominal: Present soft and normoactive bowel sounds; Absent tenderness *Routine Extremities Exam Extremities: Absent cyanosis, clubbing or edema *Routine Skin Exam Skin: Present warm; Absent rash *Routine Neurological Exam Neurological: Present alert and oriented X3 Assessment and Plan *Assessment and plan (1) Hypoxia: St
--- NOTE | 2022-09-24 10:20 | DIET.NUTRFU ---
Patient NPO secondary to failed swallow study. She was falling asleep during the study and demonstrated aspiration and premature spillage. RUBBING BED OPERATOR recommended NPO until her mentation improves and she is able to participate better. Provider to review wishes for alternate nutrition. She lives at [facility] currently.
[2022-09-24 11:21] VITALS: BP 164/73; PULSE 54; RESP 18; TEMP 38; O2SAT 99
--- NOTE | 2022-09-24 12:52 | CARE MANAGER ---
Addendum entered by Isabel Martinez RN 09/24/22 14:20: Note and signed form received back from Dr. Trevino. All documents faxed. Original Note: Dr. Menard feels like patient is ready for end of life care and DNR status. Patient is a [place] and her guardian states we need to contact the nurse consultants regarding this process. [place] has also requested we start this process as well. Paper work is complete, except for the 2nd physician signature and progress note. Once this is complete we will fax to the [facility] nurse consultants. MUKUL Muhammad
[2022-09-24 15:45] VITALS: BP 162/71; PULSE 70; RESP 16; TEMP 37.7; O2SAT 98
--- NOTE | 2022-09-24 18:11 | PC.NURSE ---
Patient unresponsive to voice but withdraws from pain. Patient able to follow command and squeeze my hands this afternoon but still non-verbal. VS stable. Oxygen weaned to 1LNC. Patient turned q2.
[2022-09-24 20:00] VITALS: BP 142/79; PULSE 70; RESP 14; TEMP 37.5; O2SAT 96; O2SAT 99
[2022-09-25] VITALS (11 sets, daily range): BP systolic 139–170; BP diastolic 61–84; PULSE 48–67; RESP 16–18; TEMP 36.4–37.1; O2SAT 93–98; BMI 19.8
--- NOTE | 2022-09-25 04:09 | PC.NURSE ---
PATIENT WILL OPEN EYES BRIEFLY ON COMMAND. ORIENTED TO SELF. STILL VERY LETHARGIC. 02 AT 1LN. F/C PATENT AND INTACT TO BSD, URINE CLEAR YELLOW. VSS/AFEBRILE.
--- NOTE | 2022-09-25 07:00 | XR_ITS ---
PROCEDURE INFORMATION: Exam: XR Chest Exam date and time: 09/25/2022 6:15 AM Age: 87 years old Clinical indication: Condition or disease; Lung condition and disease; Pneumonia; Aspiration; Additional info: Aspiration pneumonia TECHNIQUE: Imaging protocol: Radiologic exam of the chest. Views: 1 view. COMPARISON: CR XR CHEST PORTABLE 09/23/2022 8:05 PM FINDINGS: Lungs: Opacity in the left mid lung and both bases may represent atelectasis or pneumonia.. Pleural spaces: Small left pleural effusion.. Heart/Mediastinum: Stable cardiac silhouette Bones/joints: Vertebroplasty in the thoracic spine IMPRESSION: 1. Opacity in the left mid lung and both bases may represent atelectasis or pneumonia.. 2. Small left pleural effusion..
[2022-09-25 07:39] LABS: Basophils % 0.3 % (0.1-2.0); Eosinophils # 0.1 K/mm3 (0.0-0.4); Eosinophils % 0.5 % (0.1-12.0); Hematocrit 42.5 % (37.0-47.0); Hemoglobin 13.7 g/dL (12.2-16.2); Lymphocytes # 1.6 K/mm3 (0.7-4.5); Lymphocytes % 14.4 % (10-50); Mean Corpuscular HGB Conc 32.2 g/dL (31.8-35.4); Mean Corpuscular Hemoglobin 29.5 pg (27.0-31.2); Mean Corpuscular Volume 91.7 fl (81-99); Mean Platelet Volume 9.9 fl (7.4-10.4); Monocytes # 0.5 K/mm3 (0.1-1.0); Monocytes % 4.2 % (1.7-9.3); Neutrophils # 9.2 K/mm3 (1.8-7.8); Neutrophils % 80.6 % (37.0-80.0); Platelet Count 200 K/mm3 (142-424); Red Blood Count 4.64 M/mm3 (4.20-5.40); Red Cell Distribution Width 14.5 % (11.5-17.5); White Blood Count 11.4 K/mm3 (4.8-10.8)
[2022-09-25 07:48] LABS: Chloride 109 mmol/L (98-107); Sodium 144 mmol/L (136-145)
[2022-09-25 07:51] LABS: Anion Gap 10.7 mEq/L (5-15); Blood Urea Nitrogen 12 mg/dl (7-17); Calcium 8.1 mg/dl (8.4-10.2); Carbon Dioxide 27 mmol/L (22.0-30.0); Creatinine Clearance Estimated 30 mL/min (50-200); Estimated Glomerular Filt Rate 117 ml/min (>60); GFR (African American) 142 ML/MIN (>60); Glucose 73 mg/dl (74-100)
[2022-09-25 07:56] LABS: Potassium 2.7 mmoL/L (3.5-5.1)
--- NOTE | 2022-09-25 08:02 | EXP.PN ---
Subjective *Date: 09/25/22 *Time: 11:07 Interval history: CBC with 11K WBCs, down from 15K K is 2.7 CXR from this morning hasn't yet been read but to me appears to be new bibasilar infiltrates Exam Data for Last 24 hours Vital signs and Labs for Last 24 Hours: Temp Pulse Resp BP Pulse Ox 97.8 F 58 L 16 139/70 97 09/25/22 07:27 09/25/22 07:27 09/25/22 07:27 09/25/22 07:27 09/25/22 07:27 Laboratory Results - last 24 hr 09/23/22 19:44: Urine Color Yellow, Urine Appearance Clear, Urine pH 6.0, Ur Specific [place] 1.025, Urine Protein Trace, Urine Glucose (UA) Negative, Urine Ketones 2+, Urine Blood 1+, Urine Nitrate Positive, Urine Bilirubin Negative, Urine Urobilinogen 1.0, Ur Leukocyte Esterase 2+ A, Urine RBC 3-5, Urine WBC 10-20, Amorphous Sediment 3+, Urine Bacteria 2+ 09/25/22 06:28: WBC 11.4 H D, RBC 4.64, Hgb 13.7, Hct 42.5, MCV 91.7, MCH 29.5, MCHC 32.2, RDW 14.5, Plt Count 200, MPV 9.9, Neut % (Auto) 80.6 H, Lymph % (Auto) 14.4, [place] % (Auto) 4.2, Eos % (Auto) 0.5, Baso % (Auto) 0.3, Neut # (Auto) 9.2 H, Lymph # (Auto) 1.6, [place] # (Auto) 0.5, Eos # (Auto) 0.1, Baso # (Auto) 0.0 09/25/22 06:28: Sodium 144, Potassium 2.7 L* D, Chloride 109 H, Carbon Dioxide 27, Anion Gap 10.7, BUN 12, Creatinine 0.50 L, Estimated Creat Clear 30, Estimated GFR 117, Est GFR ( Amer) 142, Glucose 73 L D, Calcium 8.1 L I & O for Last 24 hours: Intake & Output 09/22/22 09/23/22 09/24/22 09/25/22 23:59 23:59 23:59 23:59 Intake Total 1275 / 1275 363 / 363 Output Total 550 / 550 500 / 500 Balance 725 / 725 -137 / -137 Weight 42.383 kg 48.27 kg 47.491 kg Microbiology Reports for the Last 24 Hours: Microbiology 09/23/22 19:44 Urine,Clean Catch Urine Culture - Final Multiple organisms, suggests contamination. Constitutional Constitutional: no acute distress *Routine HEENT Exam Head: Present normocephalic Eye: Present EOMI and PERRL ENT: Present mucous membranes moist *Routine Neck Exam Neck: Present supple; Absent lymphadenopathy *Routine Respiratory Exam Respiratory: Present CTA bilaterally *Routine Cardiovascular Exam Cardiovascular: Present RRR *Routine Abdominal Exam Abdominal: Present soft and normoactive bowel sounds; Absent tenderness *Routine Extremities Exam Extremities: Absent cyanosis, clubbing or edema *Routine Skin Exam Skin: Present warm; Absent rash *Routine Neurological Exam Neurological: Present alert and oriented X3 Assessment and Plan *Assessment and plan (1) Hypoxia: Status: Acute Category: Medical Code(s): R09.02 - Hypoxemia (2) Failure to thrive: Status: Acute Category: Medical (3) Encephalopathy acute: Status: Acute Category: Medical Code(s): G93.40 - Encephalopathy, unspecified (4) Acute UTI (urinary tract infection): Status: Acute Category: Medical Code(s): N39.0 - Urinary tract infection, site not specified (5) Pneumonia: Status: Acute Qualifiers: Laterality: bilateral Lung location: lower lobe of lung Pneumonia type: due to unspecified organism Qualified Code(s): J18.9 - Pneumonia, unspecified organism Category: Medical Code(s): J18.9 - Pneumonia, unspecified organism (6) Severe sepsis: Status: Acute Category: Medical Code(s): A41.9 - Sepsis, unspecified organism; R65.20 - Severe sepsis without septic shock Plan Trini Seaman is an 87 year old female who is a resident at [facility] who was admitted on 09/23 with sepsis, hypoxia, aspiration pneumonitis vs pneumonia and a possible UTI. She was given 30mL/kg of fluids and started on vanc/zosyn. Initial vitals BP 180/86 - HR 71 - RR 20 - SpO2 98% on 2L - T 100.6. Initial workup included CBC with 15K WBCs, UA with 10-20 WBCs, CXR without acute abnormality, CT head with interval progression of chronic appearing ischemic changes in the right coronoa radiata. At baseline sh
--- NOTE | 2022-09-25 08:40 | PC.NURSE ---
courtesy tech note; rounded on pt, assisted tech with Q2 hour turn, call light within reach, no further requests at this time. K Keny, SRNA
--- NOTE | 2022-09-25 15:10 | PC.NURSE ---
courtesy tech note; rounded on pt, pt sleeping, blood pressure for 1600 vital signs 170/68, notified nurse. call light within reach, no further requests at this time. Surya Bustillo, SRNA
--- NOTE | 2022-09-25 15:42 | PC.NURSE ---
Patient able to say yes and no but will not follow commands. Blood pressure checked manually 150/80. Patient remained on 1LNC. Turned q2. Lung sounds diminished.
--- NOTE | 2022-09-25 18:09 | PC.NURSE ---
courtesy tech note; rounded on pt, pt sleeping at this time, call light within reach, no further requests. K Keny, SRNA
[2022-09-26] VITALS (11 sets, daily range): BP systolic 153–175; BP diastolic 67–81; PULSE 40–70; RESP 16–17; TEMP 36.4–37.1; O2SAT 93–97; BMI 18.9
--- NOTE | 2022-09-26 05:53 | PC.NURSE ---
PATIENT MORE RESPONSIVE. OPENS EYES TO TOUCH. FOLLOWS SIMPLE COMMANDS. REMAINS NPO AT THIS TIME. HIGH ASPIRATION RISKS. HR SINUS EVY. HAS COMPLETED 3 BAGS OF POTASSIUM RUNS. URINE CULTURE POSITIVE FOR E.COLI.
[2022-09-26 07:19] LABS: Chloride 108 mmol/L (98-107); Sodium 138 mmol/L (136-145)
[2022-09-26 07:20] LABS: Potassium 3.4 mmoL/L (3.5-5.1)
[2022-09-26 07:22] LABS: Blood Urea Nitrogen 7 mg/dl (7-17); Creatinine Clearance Estimated 29 mL/min (50-200); Estimated Glomerular Filt Rate 151 ml/min (>60); GFR (African American) 183 ML/MIN (>60)
[2022-09-26 07:23] LABS: Anion Gap 5.4 mEq/L (5-15); Calcium 7.8 mg/dl (8.4-10.2); Carbon Dioxide 28 mmol/L (22.0-30.0); Glucose 125 mg/dl (74-100); Magnesium 1.7 mg/dl (1.6-2.3)
--- NOTE | 2022-09-26 09:26 | EXP.PN ---
Subjective *Date: 09/26/22 *Time: 11:25 Interval history: No acute events overnight. She doesn't respond to my questions but does have purposeful movements. Exam Data for Last 24 hours Vital signs and Labs for Last 24 Hours: Temp Pulse Resp BP Pulse Ox 97.6 F 40 L 16 153/73 H 97 09/26/22 07:09 09/26/22 08:00 09/26/22 07:09 09/26/22 07:09 09/26/22 07:09 Laboratory Results - last 24 hr 09/23/22 19:44: Urine Color Yellow, Urine Appearance Clear, Urine pH 6.0, Ur Specific [place] 1.025, Urine Protein Trace, Urine Glucose (UA) Negative, Urine Ketones 2+, Urine Blood 1+, Urine Nitrate Positive, Urine Bilirubin Negative, Urine Urobilinogen 1.0, Ur Leukocyte Esterase 2+ A, Urine RBC 3-5, Urine WBC 10-20, Amorphous Sediment 3+, Urine Bacteria 2+ 09/26/22 06:18: Sodium 138, Potassium 3.4 L D, Chloride 108 H, Carbon Dioxide 28, Anion Gap 5.4, BUN 7 D, Creatinine 0.40 L, Estimated Creat Clear 29, Estimated GFR 151, Est GFR ( Amer) 183 D, Glucose 125 H D, Calcium 7.8 L, Magnesium 1.7 I & O for Last 24 hours: Intake & Output 09/23/22 09/24/22 09/25/22 09/26/22 23:59 23:59 23:59 23:59 Intake Total 1275 / 1275 2076 / 2076 598 / 598 Output Total 550 / 550 1200 / 1200 100 / 100 Balance 725 / 725 876 / 876 498 / 498 Weight 42.383 kg 48.27 kg 47.491 kg 45.558 kg Microbiology Reports for the Last 24 Hours: Microbiology 09/23/22 19:44 Urine,Clean Catch Urine Culture - Final Escherichia coli 09/23/22 20:45 Blood Blood Culture - Preliminary NO GROWTH AFTER 48 HOURS 09/23/22 19:44 Blood Blood Culture - Preliminary NO GROWTH AFTER 48 HOURS Constitutional Constitutional: no acute distress *Routine HEENT Exam Head: Present normocephalic Eye: Present EOMI and PERRL ENT: Present mucous membranes moist *Routine Neck Exam Neck: Present supple; Absent lymphadenopathy *Routine Respiratory Exam Respiratory: Present CTA bilaterally; Absent stridor *Routine Cardiovascular Exam Cardiovascular: Present RRR *Routine Abdominal Exam Abdominal: Present soft and normoactive bowel sounds; Absent tenderness *Routine Extremities Exam Extremities: Absent cyanosis, clubbing or edema *Routine Skin Exam Skin: Present warm; Absent rash *Routine Neurological Exam Neurological: Present altered mental status; Absent clonus Assessment and Plan *Assessment and plan (1) Hypoxia: Status: Acute Category: Medical Code(s): R09.02 - Hypoxemia (2) Failure to thrive: Status: Acute Category: Medical (3) Encephalopathy acute: Status: Acute Category: Medical Code(s): G93.40 - Encephalopathy, unspecified (4) Acute UTI (urinary tract infection): Status: Acute Category: Medical Code(s): N39.0 - Urinary tract infection, site not specified (5) Pneumonia: Status: Acute Qualifiers: Laterality: bilateral Lung location: lower lobe of lung Pneumonia type: due to unspecified organism Qualified Code(s): J18.9 - Pneumonia, unspecified organism Category: Medical Code(s): J18.9 - Pneumonia, unspecified organism (6) Severe sepsis: Status: Acute Category: Medical Code(s): A41.9 - Sepsis, unspecified organism; R65.20 - Severe sepsis without septic shock Plan Trini Seaman is an 87 year old female who is a resident at [facility] who was admitted on 09/23 with sepsis, hypoxia, aspiration pneumonitis vs pneumonia and a possible UTI. She was given 30mL/kg of fluids and started on vanc/zosyn. Initial vitals BP 180/86 - HR 71 - RR 20 - SpO2 98% on 2L - T 100.6. Initial workup included CBC with 15K WBCs, UA with 10-20 WBCs, CXR without acute abnormality, CT head with interval progression of chronic appearing ischemic changes in the right coronoa radiata. At baseline she is alert, oriented to person but not place and time and is wheelchair bound, 1
--- NOTE | 2022-09-26 17:31 | PC.NURSE ---
Patient able to say her name and follow commands by squeezing my hands and moving both feet. Patient weaned to room air. Turned q2. VS stable. Lung sounds diminished.
[2022-09-26 22:32] LABS: Vancomycin,Trough < 5.0 ug/mL (5.0-10.0)
[2022-09-27] VITALS (10 sets, daily range): BP systolic 155–171; BP diastolic 61–94; PULSE 50–74; RESP 16–20; TEMP 36.6–37.3; O2SAT 91–99; BMI 18.9
[2022-09-27 03:31] LABS: Vancomycin,Peak 13.3 ug/ml (11-39)
--- NOTE | 2022-09-27 05:47 | PC.NURSE ---
Pt. aox1 with confusion, Pt is a turn q2 and is Npo for a MBS by carlos today, 97% on Ra. No changes during the night.
--- NOTE | 2022-09-27 08:17 | EXP.PN ---
Subjective *Date: 09/27/22 *Time: 10:35 Interval history: No acute events overnight. Exam Data for Last 24 hours Vital signs and Labs for Last 24 Hours: Temp Pulse Resp BP Pulse Ox 99.1 F 58 L 16 157/70 H 92 L 09/27/22 04:00 09/27/22 04:00 09/27/22 04:00 09/27/22 04:00 09/27/22 04:00 Laboratory Results - last 24 hr 09/26/22 22:00: Vancomycin Trough < 5.0 L 09/27/22 03:05: Vancomycin Peak 13.3 I & O for Last 24 hours: Intake & Output 09/24/22 09/25/22 09/26/22 09/27/22 23:59 23:59 23:59 23:59 Intake Total 1275 / 1275 2076 / 2076 1775 / 1775 725 / 725 Output Total 550 / 550 1200 / 1200 1600 / 2000 750 / 750 Balance 725 / 725 876 / 876 175 / -225 -25 / -25 Weight 48.27 kg 47.491 kg 45.558 kg 45.473 kg Microbiology Reports for the Last 24 Hours: Microbiology 09/25/22 19:10 Nose MRSA Culture - Final Negative Constitutional Constitutional: no acute distress *Routine HEENT Exam Head: Present normocephalic Eye: Present EOMI and PERRL ENT: Present mucous membranes moist *Routine Neck Exam Neck: Present supple; Absent lymphadenopathy *Routine Respiratory Exam Respiratory: Present CTA bilaterally; Absent stridor *Routine Cardiovascular Exam Cardiovascular: Present RRR *Routine Abdominal Exam Abdominal: Present soft and normoactive bowel sounds; Absent tenderness *Routine Extremities Exam Extremities: Absent cyanosis, clubbing or edema *Routine Skin Exam Skin: Present warm; Absent rash *Routine Neurological Exam Neurological: Present altered mental status; Absent clonus Assessment and Plan *Assessment and plan (1) Hypoxia: Status: Acute Category: Medical Code(s): R09.02 - Hypoxemia (2) Failure to thrive: Status: Acute Category: Medical (3) Encephalopathy acute: Status: Acute Category: Medical Code(s): G93.40 - Encephalopathy, unspecified (4) Acute UTI (urinary tract infection): Status: Acute Category: Medical Code(s): N39.0 - Urinary tract infection, site not specified (5) Pneumonia: Status: Acute Qualifiers: Laterality: bilateral Lung location: lower lobe of lung Pneumonia type: due to unspecified organism Qualified Code(s): J18.9 - Pneumonia, unspecified organism Category: Medical Code(s): J18.9 - Pneumonia, unspecified organism (6) Severe sepsis: Status: Acute Category: Medical Code(s): A41.9 - Sepsis, unspecified organism; R65.20 - Severe sepsis without septic shock Plan Trini Seaman is an 87 year old female who is a resident at [facility] who was admitted on 09/23 with sepsis, hypoxia, aspiration pneumonitis vs pneumonia and a possible UTI. She was given 30mL/kg of fluids and started on vanc/zosyn. Initial vitals BP 180/86 - HR 71 - RR 20 - SpO2 98% on 2L - T 100.6. Initial workup included CBC with 15K WBCs, UA with 10-20 WBCs, CXR without acute abnormality, CT head with interval progression of chronic appearing ischemic changes in the right coronoa radiata. At baseline she is alert, oriented to person but not place and time and is wheelchair bound, 1 person assist for transfer. Her only scheduled home medication is mirtazapine. I spoke with Vanessa nurse at [facility]. She stopped eating on Tuesday09/18/22 after multiple aspiration events which required suctioning. Speech therapy ordered an MBSS in the outpatient setting and recommended NPO. Urine culture grew >100K E. coli, sensitive to Rocephin. #sepsis #aspiration pneumonia #acute UTI secondary to e. coli #dysphagia #hypokalemia, resolved MRSA screen is negative. Will stop IV vancomycin. Continue cefepime and flagyl. Blood cultures are negative at 48 hours. I spoke with the patient's guardian, Lana Raman, [place]. We are in the process of making the patient comfort care only. Speech therapy recommended NPO and an alternate means of nutrition. Replete K as needed
--- NOTE | 2022-09-27 08:31 | EXP.PHA.CONS ---
Pharmacy Consult Date: 09/27/22 Time: 08:32 Referring provider: DR STROUD Reason for Consult:: VANCOMYCIN PEAK AND TROUGH LEVELS OBTAINED. Allergies Allergy/AdvReac Type Severity Reaction Status Date / Time codeine Allergy Verified 09/24/22 12:30 oxycodone Allergy Verified 09/24/22 12:30 Home Medications Medication Instructions Recorded Confirmed Type mirtazapine 15 mg tablet (Remeron) 15 mg PO HS Appetite 09/23/22 09/23/22 History Stimulant/depression acetaminophen 500 mg tablet 500 mg PO Q4HP PRN pain/fever 09/24/22 09/24/22 History lactulose 20 gram/30 mL oral 20 g PO DAILYP PRN Constipation 09/24/22 09/24/22 History solution senna-docusate sodium tablet 1 tab PO BIDP PRN Constipation 09/24/22 09/24/22 History New Prescriptions to Start Prescriptions: Height: 1.55 m Weight: 45.473 kg Laboratory Results:: Laboratory Results - last 24 hr 09/26/22 22:00: Vancomycin Trough < 5.0 L 09/27/22 03:05: Vancomycin Peak 13.3 Medical History: Medical History (Updated 09/23/22 @ 22:01 by ELMER Perez) Anorexia Anxiety disorder, unspecified COPD (chronic obstructive pulmonary disease) with acute bronchitis Major depressive disorder, recurrent Other and unspecified hyperlipidemia Other lack of coordination Unspecified mood [affective] disorder Assessment and Plan Assessment and plan all Dx Assessment and Plan for all problems:: VANCOMYCIN PEAK AND TROUGH LEVEL OBTAINED. TROUGH: LESS THAN 5.0 MCG/ML (09/26/22 22:00) PEAK: 13.3 MCG/ML (09/27/22 03:05) CALCULATED VALUES Percent above / below IBW: 1.0 % CRCL: 60.9 (ml/min, Cockcroft and Gault using IBW). BMI: 20.10 Tung: 0.055 (hr-1) Adjusted body weight: 47.8 kg T 1/2: 12.60 (hrs) Serum Creatinine: 0.5 mg/dL ti (hrs): 2.0 Dosing weight: 48.279 kg (TOTAL BODY WEIGHT) Vd (liters): 33.7953 liters (factor used: 0.7 L/kg). CLvanco= 1.859 L/hr RECOMMENDED DOSE AND PREDICTED LEVELS Based on a selected AUC 0-24 of 500 mg?h/literled (Adjust at top of the page) Recommended dose: 813 mg Recommended Interval: 21 hrs Predicted peak: 35.0 mcg/ml. Predicted trough: 12.51 mcg/ml. AUC 0-24 /SONAL (based on an SONAL of 1 mg/L): 529.5 ~Target: 400 - 600. RECOMMENDATION: CHANGE VANCOMYCIN TO 1000 MG Q24H TO START 09/27/22 AT 23:00. Enter New dose: 1000 mg New interval: 24 hrs FINAL VALUES - NEW REGIMEN Predicted values: PEAK: 38.2 mcg/ml TROUGH: 11.39 mcg/ml AUC 0-24 /SONAL Data: SONAL 0.5 mcg/mL: AUC/SONAL: 1075.8 SONAL 1.0 mcg/mL: AUC/SONAL: 537.9 SONAL 1.5 mcg/mL: AUC/SONAL: 358.6
--- NOTE | 2022-09-27 11:18 | EXP.PHA.PN ---
Subjective *Date: 09/27/22 *Time: 11:18 Medical Exam Vital signs and Labs for Last 24 Hours: Vital Signs Temp Pulse Pulse Resp BP Pulse Ox 09/27/22 08:00 50 L 09/27/22 08:00 97.8 F 53 L 18 171/86 H 96 09/27/22 04:00 99.1 F 58 L 16 157/70 H 92 L 09/27/22 04:00 60 09/27/22 00:00 50 L 09/27/22 00:00 98.7 F 56 L 16 166/76 H 92 L 09/26/22 20:00 70 09/26/22 20:00 97 09/26/22 19:45 98.8 F 66 17 175/81 H 93 L 09/26/22 16:00 70 09/26/22 12:00 40 L 09/26/22 14:47 97.8 F 63 16 160/77 H 94 L Intake and Output 09/26/22 09/27/22 09/27/22 23:59 07:59 15:59 Intake Total 1177 / 1775 725 / 725 Output Total 700 / 2000 750 / 1200 450 / 1200 Balance 477 / -225 -25 / -475 -450 / -475 Intake: Intake, Total IV Amount 1177 / 1775 725 / 725 Cefepime HCl 2 gm In 0.9 % 100 / 100 Sodium Chloride 100 ml @ 200 mls/hr IV Q24H [facility] Rx#:[id number] D5W/0.45% NaCl w/20mEq KCL 1, 977 / 1475 375 / 375 000 ml @ 75 mls/hr IV .[id number] [facility] Rx#:[id number] Metronidaz/Sod Chl 500 mg In 100 / 200 100 / 100 100 ml @ 100 mls/hr IV Q8H [facility] Rx#:[id number] Vancomycin HCl 750 mg In 0.9 % 250 / 250 Sodium Chloride 250 ml @ 125 mls/hr IV Q36H [facility] Rx#:[id number] Output: Output, Urine Amount 700 / 800 350 / 800 450 / 800 Output, Urine Amount (Catheter) 400 / 400 Carmona 400 / 400 Other: Number of Unmeasured Voids 0 0 1 Weight 45.473 kg 45.473 kg Patient Weight 09/27/22 23:59 Weight 45.473 kg Laboratory Results - last 24 hr 09/26/22 22:00: Vancomycin Trough < 5.0 L 09/27/22 03:05: Vancomycin Peak 13.3 I & O for Labs for Last 24 Hours: Intake & Output 09/24/22 09/25/22 09/26/22 09/27/22 23:59 23:59 23:59 23:59 Intake Total 1275 / 1275 2076 / 2076 1775 / 1775 725 / 725 Output Total 550 / 550 1200 / 1200 1600 / 2000 1200 / 1200 Balance 725 / 725 876 / 876 175 / -225 -475 / -475 Weight 48.27 kg 47.491 kg 45.558 kg 45.473 kg Microbiology Reports for the Last 24 Hours: Microbiology 09/25/22 19:10 Nose MRSA Culture - Final Negative The patient's infection will respond to the chosen ABx?: Yes Is the patient receiving the right drug, dose, and route?: Yes Could a more targeted ABx be ordered?: Yes (DISCUSSED DE-ESCALATION WITH HOSPITALISTANNIE ALL ABX TODAY)
--- NOTE | 2022-09-27 21:04 | PC.NURSE ---
Comfort care form faxed from the state to the hospital and placed in patient's chart.
--- NOTE | 2022-09-27 21:33 | PC.NURSE ---
IV'S may stay in place per Sindi TAVERAS.
[2022-09-27 22:49] LABS: Vancomycin,Trough 5.2 ug/mL (5.0-10.0)
[2022-09-28] VITALS: BP 135/73; PULSE 59; RESP 20; TEMP 36.4; O2SAT 94
[2022-09-28 00:37] VITALS: PULSE 60
[2022-09-28 04:00] VITALS: BP 139/68; PULSE 57; RESP 20; TEMP 36.4; O2SAT 94; BMI 19.5
[2022-09-28 04:13] VITALS: PULSE 60
--- NOTE | 2022-09-28 04:19 | PC.NURSE ---
Pt. is NPO, turn q2, 98% on RA, f/c in place, 20g R AC sl, d5 1/2 NS + 20k AT 75 ml/hr. No changes noted.
[2022-09-28 07:21] VITALS: BP 156/79; PULSE 53; RESP 16; TEMP 37; O2SAT 91
--- NOTE | 2022-09-28 08:59 | EXP.DC.SUM ---
General Admission date:: 09/23/22 Discharge date: 09/28/22 HPI HPI HPI: this is an 87-year-old female who resides at [facility] who presents emergency department today with hypoxia and altered mental status. Reportedly patient underwent barium swallow today and was noted by staff to be altered above baseline. From prior documentation, patient is typically able to communicate. She presents today encephalopathic and nonverbal. Review of systems difficult to obtain secondary to patient's mental status. Patient notable to be hypoxic in the 80s on room air. She does not wear oxygen at the SNF. Further work-up reveals urinary tract infection. Chest x-ray non revealing. leukocytosis noted with a white blood cell count of 14. Lactic acid negative. She is oxygenating well on 2 L nasal cannula. Given the above-mentioned complaints, internal medicine was consulted for admission and she will be admitted to the hospital service for further evaluation and management. Hospital Course Hospital Course Hospital Course: Does not identify who is admitted with sepsis, hypoxemia, aspiration pneumonia versus pneumonitis and possible UTI. Patient was started on antibiotics and fluid resuscitated. CT head with interval progression of chronic appearing ischemic changes in the right gandhi radiata. Prior provider had spoken to patient's guardian she has been transition to making the patient comfort care only. Patient was discharged to [facility]. Exam Data for Last 24 hours Vital signs and Labs for Last 24 Hours: Temp Pulse Resp BP Pulse Ox 98.6 F 53 L 16 156/79 H 91 L 09/28/22 07:21 09/28/22 07:21 09/28/22 07:21 09/28/22 07:21 09/28/22 07:21 Laboratory Results - last 24 hr 09/27/22 22:05: Vancomycin Trough 5.2 I & O for Last 24 hours: Intake & Output 09/25/22 09/26/22 09/27/22 09/28/22 23:59 23:59 23:59 23:59 Intake Total 2076 / 2076 1775 / 1775 725 / 825 625 / 625 Output Total 1200 / 1200 1600 / 2000 1900 / 1900 500 / 500 Balance 876 / 876 175 / -225 -1175 / -1075 125 / 125 Weight 47.491 kg 45.558 kg 45.473 kg 46.975 kg Microbiology Reports for the Last 24 Hours: Microbiology 09/25/22 19:10 Nose MRSA Culture - Final Negative Constitutional Constitutional: no acute distress Comments: non communicative, at baseline *Routine HEENT Exam Head: Present normocephalic Eye: Present EOMI and PERRL ENT: Present mucous membranes moist *Routine Neck Exam Neck: Present supple; Absent lymphadenopathy *Routine Respiratory Exam Respiratory: Present CTA bilaterally; Absent stridor *Routine Cardiovascular Exam Cardiovascular: Present RRR *Routine Abdominal Exam Abdominal: Present soft and normoactive bowel sounds; Absent tenderness *Routine Extremities Exam Extremities: Absent cyanosis, clubbing or edema *Routine Skin Exam Skin: Present warm; Absent rash *Routine Neurological Exam Neurological: Present altered mental status; Absent clonus Results Data Completed and Pending Labs on day of discharge: Labs from last 24 hours 09/27/22 22:05 Vancomycin Trough 5.2 Preliminary micro results at discharge 09/23/22 20:45 Blood Culture - Preliminary Blood NO GROWTH AFTER 48 HOURS 09/23/22 19:44 Blood Culture - Preliminary Blood NO GROWTH AFTER 48 HOURS DS: Diagnosis Discharge Diagnosis (1) Hypoxia: Status: Acute (2) Failure to thrive: Status: Acute (3) Encephalopathy acute: Status: Acute (4) Acute UTI (urinary tract infection): Status: Acute (5) Pneumonia: Status: Acute (6) Severe sepsis: Status: Acute Meds Home Medications and Allergies Home Medications Medication Instructions Recorded Confirmed Type mirtazapine 15 mg tablet (Remeron) 15 mg PO HS Appetite 09/23/22 09/23/22 History Stimulant/depression acetaminophen 500 mg tablet 500 mg PO Q4HP PRN pain/fever 09/24/22 09/24/22 History lactulo
--- NOTE | 2022-09-28 11:23 | PC.NURSE ---
report called to sadie at [email or web address] [facility] notified of transport
[2022-10-02 17:15] LABS: MRSA DNA PCR NEGATIVE
== END 2022-09-28 11:55 | disposition hospice, inpatient (51) | DRG 871 ==
LOC: ER 20:35 → 2ND 09-24 00:16
PROVIDERS: Nurse Practitioner Acute Care; Student in an Organized Health Care Education/Training Program; Admitting Provider Internal Medicine; Emergency Provider Emergency Medicine; PCP Emergency Medicine; Visit Provider Internal Medicine
DX: A41.9 Sepsis, unspecified organism (principal); J69.0 Pneumonitis due to inhalation of food and vomit; F33.9 Major depressive disorder, recurrent, unspecified; G93.40 Encephalopathy, unspecified; N30.00 Acute cystitis without hematuria; F03.911 Unspecified dementia, unspecified severity, with agitation; Z51.5 Encounter for palliative care; J44.0 Chronic obstructive pulmonary disease with (acute) lower respiratory infection; F41.9 Anxiety disorder, unspecified; R62.7 Adult failure to thrive; G89.29 Other chronic pain; E87.6 Hypokalemia; B96.20 Unspecified Escherichia coli [E. coli] as the cause of diseases classified elsewhere; R65.20 Severe sepsis without septic shock
CPT/HCPCS: 36415; 51702; 70371; 70450; 71045; 80048; 80053; 80202; 81001; 82803; 83605; 83735; 83880; 84145; 85007; 85025; 85651; 86140; 87040; 87081; 87086; 87088; 87186; 87641; 92611; 93005; 99285; C9803; J0692; J2543; J3370; U0003; U0005